=== PATIENT | female | born 1945 | race Caucasian/White ===

== ENCOUNTER → 2020-10-09 11:57 | Outpatient (CLI) | payer MEDICARE, OTHER, SELFPAY ==
--- NOTE | ~2020-10-09 | XR_ITS ---
XR chest 2V DATE: 10/09/2020 12:17 INDICATION: Shortness of breath TECHNIQUE: PA and lateral views COMPARISON: 06/02/2019 portable AP chest FINDINGS: Heart size is within upper normal range. There is aortic arch calcification. No pulmonary i nfiltrate or consolidation, pleural effusion or pulmonary vascular congestion or pneumothorax. There is left superior mediastinal soft tissue prominence. 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 Diffuse osteopenia. IMPRESSION: Left superior mediastinal soft tissue prominence, likely secondary to rotation and an ano malous left superior mediastinal vein evident on 04/29/2013 CT examination No active pulmonary disease Reviewed, dictated and finalized at location A. IMPRESSION: Left superior mediastinal soft tissue prominence, likely secondary to rotation and an anomalous left superior mediastinal vein evident on 3 CT examination No active pulmonary disease
== END ==
PROVIDERS: PCP Family Medicine Adolescent Medicine; Visit Provider Physician Assistant
DX: R06.02 Shortness of breath (principal); R91.8 Other nonspecific abnormal finding of lung field
CPT/HCPCS: 71046

== ENCOUNTER → 2020-11-22 15:04 | Outpatient (CLI) | payer MEDICARE, OTHER, SELFPAY ==
--- NOTE | ~2020-11-22 | CT_ITS ---
EXAMINATION: CT abdomen pelvis wo con EXAM DATE: 11/22/2020 15:18 INDICATION: Sacral drainage and rectal CA with hx of APR. TECHNIQUE: Spiral CT of the abdomen and pelvis was performed without contrast. Axial, coronal and s agittal images of the abdomen and pelvis were reviewed. The dose-length product (DLP) for this exami [facility] was 436.36 mGy-cm. The exposure was tailored according to patient size (auto mA exposure cont rol), and iterative reconstruction (ASIR) was used as additional dose reduction technique. Comparison is made to prior examination from 04/29/2013. FINDINGS: Possible 1.2 cm cystic pancreatic head lesion. The differential diagnosis includes pseudocy st, intraductal papillary mucinous neoplasm (IPMN), mucinous cystic neoplasm (MCN), and the less comm on serous cystadenoma and neuroendocrine tumor. Correlate for history of pancreatitis. The liver, spleen, adrenal glands are otherwise unremarkable. There are gallstones within an otherwi se unremarkable gallbladder. No evidence of obstructive biliary disease. There is no nephrolithiasi s or hydronephrosis. Right hip replacement obscuring the pelvis. Fibroid uterus. The bladder is unre markable. There is no retroperitoneal or pelvic lymphadenopathy. There is mild scattered arteriosc lerotic disease. In expected location of rectum there is region measuring about 1 x 3 cm which could be small pocket o f fluid, abscess or soft tissue, was not present on prior study in 2012. There is left lower quadrant colostomy which was present at that time as well as the presacral surgical clips. Scattered colonic diverticulosis without diverticulitis. The appendix is normal. There is small sliding gastroesophage al hiatal hernia. There is expected amount of colonic stool. No free intraperitoneal gas. The he art is normal in size. There are no pericardial or pleural effusions. The lung bases are unremarkab le. There are no osteoblastic or osteolytic lesions identified. The sacrum is unremarkable, no sac ral erosion. IMPRESSION: 1. Development of nonspecific small fluid collection or soft tissue in the rectal surgical bed. 2. Possible development of small pancreatic cystic lesion, differential diagnosis above. 3. Small hiatal hernia. Cholelithiasis. 4. Mild colonic diverticulosis. 5. Surgical changes. Reviewed, dictated and finalized at location A. IMPRESSION: 1. Development of nonspecific small fluid collection or soft tissue in the rec larisa surgical bed. 2. Possible development of small pancreatic cystic lesion, differential diagno sis above. 3. Small hiatal hernia. Cholelithiasis. 4. Mild colonic diverticulosis. 5. Surgical changes.
== END ==
PROVIDERS: Visit Provider Surgery
DX: C20 Malignant neoplasm of rectum (principal); M79.9 Soft tissue disorder, unspecified; K57.30 Diverticulosis of large intestine without perforation or abscess without bleeding; K44.9 Diaphragmatic hernia without obstruction or gangrene; K80.20 Calculus of gallbladder without cholecystitis without obstruction
CPT/HCPCS: 74176

== ENCOUNTER 2021-01-17 13:00 | Outpatient (RCR) | payer MEDICARE, OTHER, SELFPAY ==
[2020-12-09 12:39] VITALS: BMI 28.0
[2020-12-09 12:51] VITALS: BMI 28.0
== END 2021-02-28 11:48 | disposition home or self-care (01) ==
LOC: ANHDMC 13:00
PROVIDERS: PCP Family Medicine Adolescent Medicine; Visit Provider Family Medicine Adolescent Medicine
DX: E11.65 Type 2 diabetes mellitus with hyperglycemia (principal); Z71.3 Dietary counseling and surveillance; Z71.89 Other specified counseling
CPT/HCPCS: 97802; G0108

== ENCOUNTER 2021-02-02 18:14 | Inpatient (IN) | payer MEDICARE, OTHER, SELFPAY ==
--- NOTE | ~2021-02-02 | XR_ITS ---
EXAMINATION: XR chest 1V portable 02/02/2021 23:42 INDICATION: Fever PROCEDURE: AP portable chest COMPARISON: Comparison to multiple prior studies sequentially, with oldest reviewed study dated 11/16. FINDINGS: The lungs are clear. The cardiomediastinal silhouette is within normal limits. There are no pleural effusions. There is no pneumothorax suspected. IMPRESSION: 1: NO ACUTE CARDIOPULMONARY DISEASE. Reviewed, dictated and finalized at location A.
--- NOTE | ~2021-02-02 | CT_ITS ---
EXAMINATION: CT abdomen pelvis wo con DATE: 02/03/2021 00:25 INDICATION: Abscess. TECHNIQUE: Computed tomography (CT) of the abdomen and pelvis was performed without intravenous contr ast. Automated exposure control and iterative reconstruction technique were employed. The dose-length product was 273.96 mGy-cm. COMPARISON: CT abdomen and pelvis 11/22/2020 FINDINGS: The visualized portions of the lung bases demonstrate mild atelectasis. No pleural effusion . The heart size is normal. No pericardial effusion. There is a small sliding hiatal hernia. The live r is normal. The gallbladder is contracted and contains gallstones. The spleen, pancreas, adrenal gla nds, and kidneys are normal. There are calcified fibroids in the uterus. There is diverticulosis of t he colon without evidence of diverticulitis. There is an end colostomy in left abdomen. The appendix is normal. There are surgical clips and chronic fat stranding in the presacral region, consistent wit h scarring. There is a sacral decubitus ulcer. No evidence of osteomyelitis. There are no pathologica lly enlarged lymph nodes. There is no free intraperitoneal fluid. There is a total right hip arthropl asty. IMPRESSION: 1. Small sliding hiatal hernia. 2. Cholelithiasis. No evidence of acute cholecystitis. 3. Sacral decubitus ulcer. No evidence of osteomyelitis. Reviewed, dictated and finalized at location A.
--- NOTE | ~2021-02-02 | XR_ITS ---
EXAMINATION: XR abdomen/kub 1V EXAM DATE: 02/05/2021 22:29 INDICATION: nausea and vomiting . Left lower quadrant colostomy. TECHNIQUE: Frontal projection of the upper abdomen, frontal projection lower abdomen/pelvis for inter pretation. Correlation is made to CT abdomen pelvis 02/02/2021. FINDINGS: There are several loops of moderately distended air-filled small bowel. Relative paucity of colonic stool and gas. Small bowel ileus versus low-grade obstruction. Fibroid. Right hip replacemen t. There is no organomegaly. IMPRESSION: Development of several moderately distended small bowel loops, ileus or possibly low-grad e obstruction. Reviewed, dictated and finalized at location A. IMPRESSION: Development of several moderately distended small bowel loops, ileu s or possibly low-grade obstruction.
--- NOTE | ~2021-02-02 | XR_ITS ---
XR chest PICC line DATE: 02/10/2021 17:39 INDICATION: PICC line placement TECHNIQUE: Portable AP chest on 02/10/2021 at 1728 hours COMPARISON: 05/16/2013 CT chest abdomen pelvis FINDINGS: Based upon correlation with 2013 CT chest images, there is a left upper extremity PICC cath eter which progresses from the left subclavian vein into a vein along the lateral aspect of the left superior mediastinum, which then proceeds along the paraspinal area and eventually drains into the az ygos vein before reaching the right atrium. No direct access from either upper extremity is identified for PICC line placement. The superior vena cava is very limited, receiving drainage only from the azygos vein and some small collateral veins. The right subclavian vein is small, in height with the right internal jugular vein and forearm the br achiocephalic vein which then drains into the right internal mammary vein and left brachiocephalic ve in. Heart size appears normal. No hilar or mediastinal enlargement is evident. No pulmonary infiltrate or consolidation, pleural effusion or pulmonary vascular congestion or pneumothorax. There is moderate elevation of the right leaf of the diaphragm. Diffuse osteopenia. IMPRESSION: Left upper extremity PIC catheter in left lateral superior mediastinal vein which eventua lly processes to the left paraspinal area and drains into the azygos vein. Reviewed, dictated and finalized at Location A. Reviewed, dictated and finalized at location A. IMPRESSION: Left upper extremity PIC catheter in left lateral superior mediasti nal vein which eventually processes to the left paraspinal area and drains into the azygos vein.
[2021-02-02 18:47] VITALS: BP 154/63; PULSE 110; RESP 20; TEMP 38.1; O2SAT 97
[2021-02-02 19:02] LABS: Basophils Percent Auto 0.2 % (0.2-1.2); Hemoglobin 11.3 g/dL (12.0-15.0); Immature Granulocyte Absolute 0.16 K/mm3 (0.00-0.031); Immature Granulocyte Percent A 0.8 % (0-0.5); Lymphocytes Absolute Auto 0.38 K/mm3 (0.9-3.2); Mean Corpuscular HGB Conc 32.3 g/dl (32-36); Mean Corpuscular Hemoglobin 30.8 pg (26-34); Mean Corpuscular Volume 95.4 fl (80-100); Mean Platelet Volume 10.2 fl (7.4-10.4); Monocytes Absolute Auto 1.2 K/mm3 (0.1-0.6); Monocytes Percent Auto 6.2 % (2.6-8.5); Neutrophils Absolute Auto 17.2 K/mm3 (1.3-6.7); Neutrophils Percent Auto 90.8 % (45.5-73.1); Platelet Count Result 394 k/mm3 (150-375); Red Blood Count 3.67 M/mm3 (4.2-5.4); Red Cell Distribution Width 13.4 % (11.5-14.5)
[2021-02-02 19:12] LABS: Lactic Acid Reflex 0.8 mmol/L (0.7-2.1)
[2021-02-02 19:22] LABS: Alanine Aminotransferase 36 U/L (4-35); Albumin Level 4.3 g/dL (3.5-5.1); Alkaline Phosphatase 83 U/L (38-126); Anion Gap 12 mmol/L (8-16); Aspartate Amino Transferase 40 U/L (14-36); Bilirubin,Total 0.9 mg/dL (0.2-1.3); Blood Urea Nitrogen 44 mg/dL (7-17); Calcium 10.3 mg/dL (8.4-10.2); Carbon Dioxide 19 mmol/L (22-30); Chloride 97 mmol/L (98-107); Estimated CRCL calculation 21 ml/min; Estimated Glomerular Filt Rate 32; Glucose 167 mg/dL (65-110); Lipase 104 U/L (23-300); Potassium 4.4 mmol/L (3.4-5.0); Sodium 128 mmol/L (137-145)
[2021-02-02 19:37] LABS: CRP 34.7 mg/dL (<1.0)
[2021-02-02] MEDS: SODIUM CHLORIDE 0.9% IV 1,000 ML 150 ML IV CONT (23:43)
[2021-02-03] VITALS (21 sets, daily range): BP systolic 77–161; BP diastolic 38–63; PULSE 68–94; RESP 16–25; TEMP 36.3–38.2; O2SAT 93–100; BMI 25.7
--- NOTE | 2021-02-03 01:26 | ED.FEVER ---
HPI - Fever General Chief Complaint: Fever Stated Complaint: Fever/Weakness Time Seen by Provider: 02/02/21 22:51 Source: patient Mode of arrival: EMS Limitations: no limitations History of Present Illness HPI Narrative: 75-year-old with a history of hypertension, diabetes, colorectal cancer s/p colostomy here with a complaint of high fever of 103 since this morning. Patient states she had a boil in her lower back she gets this periodically. Patient states that she has seen different surgeons that I do not know where the origin of her infection noticed. However she did note history of have some drainage coming out from the lower back since this afternoon. She states that she was in excruciating pain. No history of chest pain or shortness of breath or cough. MD elicited complaint: fever Pertinent past history: diabetes Onset (ago): day(s) (1) Exacerbating factors: nothing Relieving factors: nothing Associated symptoms: denies other symptoms Related Data Home Medications Medication Instructions Recorded Confirmed ezetimibe 10 mg tablet 10 mg PO DAILY 11/10/20 12/29/20 metformin 500 mg tablet 500 mg PO DAILY 11/10/20 12/29/20 allopurinol 02/03/21 amlodipine 02/03/21 fenofibrate mg 02/03/21 losartan 02/03/21 triamterene-hydrochlorothiazid tablet 02/03/21 Allergies Allergy/AdvReac Type Severity Reaction Status Date / Time Sulfa (Sulfonamide Allergy Severe SWELLING, Verified 02/03/21 01:32 Antibiotics) THROAT, FACE Review of Systems Review of Systems: All systems reviewed & are unremarkable except as noted in HPI and below Constitutional: Constitutional: Reports no additional constitutional complaints Eyes: Eyes: Reports no additional eye complaints ENT: Reports system reviewed and no additional complaints, except as documented Cardiovascular: Cardiovascular: Reports no additional cardiovascular complaints Respiratory: Respiratory: Reports no additional respiratory complaints Gastrointestinal: Gastrointestinal: Reports no additional gastrointestinal complaints Integumentary/Breasts: Skin/Breast: Reports as per HPI Neurologic: Reports system reviewed and no additional complaints, except as documented PMFSH Past Medical History Medical History Cataracts, bilateral Colorectal cancer Diabetes Gout Hemorrhoids High cholesterol HTN (hypertension) Rectal cancer UTI (urinary tract infection) Surgical History Surgical History History of right hip replacement May 2019 Hx of cataract surgery lt eye 2008 Hx of section 1974 Hx of colostomy perineal resection with [id number] Hx of dilation and curettage 1979 Family History Family History Father , age 70 Heart disease Social History Social History Smoking status: Never smoker Alcohol intake: never Spiritual care concerns: No Exam Narrative: GENERAL: Well-appearing, well-nourished, and in no acute distress. HEAD: Normocephalic, atraumatic. EYES: PERRLA and EOMI. NECK: Supple. CHEST: Clear to auscultation. No respiratory distress. HEART: Regular rate and rhythm. No murmur heard. Normal peripheral pulses. ABDOMEN: Soft, nontender, nondistended, has colostomy Examination of the lower back there is abscess between the gluteal cleft with large amount purulent drainage. EXTREMITIES: Normal range of motion. No edema. SKIN: Warm, dry, no rash. NEURO: No focal deficits. Alert and oriented x3. PSYCH: Normal mood and affect. Course Course Emergency Course: Inform patient about her lab work, CT findings. Discussed with Dr. Thurston to recommend admit to contact Dr. Shelton. I discussed with Dr. Shelton advised to admit the patient to the hospitalist as she has several medical problems he will be co
--- NOTE | 2021-02-03 01:31 | PC.NURSE ---
Patient tells me that she is unable to provide urine at this time.
--- NOTE | 2021-02-03 03:21 | PC.NURSE ---
Cefepime not started in the ED because no drug in pyxis. Floor nurse notified during report,
--- NOTE | 2021-02-03 03:57 | PC.NURSE ---
This patient, Yulisa De Paz, was admitted to 3 Med Surg Room 305-01. Patient/family oriented to hospital policies and general routines including ID bracelet, bed and alarms, visiting hours, pain management, procedures, bathroom and other care routines, personal items, smoking policy, room service/diet, and visiting hours. Information on how to activate the Rapid Response Team has been discussed. Patient/Family are encouraged to report perceived risks to care and to ask questions if they do not understand what they are told or what they should do.
[2021-02-03] MEDS: SODIUM CHLORIDE 0.9% IV 1,000 ML 75 ML IV CONT ×2 (04:32→21:12)
--- NOTE | 2021-02-03 05:52 | PM.IMHP ---
H&P: HPI History of Present Illness Date/Time: 02/03/21 05:52 Chief Complaint: fever Narrative: this is a 75-year-old female with a history of hypertension, diabetes, colorectal cancer s/p colostomy since 2007, status post right hip replacement in 2019 presents to the ER with fever since past few days. She has reported of fever of 103 at home. She has not taken anything for this. She also reports she started having a boil in her lower back which is in fact a chronic problem. Since the surgery for right hip replacement in 2019 she has been recurrent be having a boil in her coccygeal area which opens and heels Frequently with drain is of blood/pus. she was seen general surgeon here however did not have any active drainage at the time and was sent to a colorectal surgeon who she saw in the end of December of last month. Since there was no drainage and opening no further test was done. She did not have any drainage under she came to the ER and while in the ER it started draining. Since is drained she reports the pain is better. She was noted to have leukocytosis of 19,000 along with fever and is admitted for further evaluation and management. Review of Systems Review of Systems: - CONSTITUTIONAL: Denies weight loss, Reports fever and chills. - HEENT: Denies changes in vision and hearing - RESPIRATORY: Denies SOB and cough. - CV: Denies palpitations and CP. - GI: Denies abdominal pain, nausea, vomiting and diarrhea. - : Denies dysuria and urinary frequency. - MSK: Denies myalgia and joint pain. reports low back pain - SKIN: Denies rash and pruritus. - NEUROLOGICAL: Denies headache and syncope. - PSYCHIATRIC: Denies recent changes in mood. Denies anxiety and depression. All systems reviewed & are unremarkable except as noted in HPI and below Constitutional: Constitutional: Reports fatigue and Reports weakness Neurologic: Reports weakness Endocrine: Endocrine: Reports fatigue PMFSH Past Medical History Medical History (Updated 02/03/21 @ 06:00 by Boby Rosa MD) Cataracts, bilateral Colorectal cancer Diabetes Gout Hemorrhoids High cholesterol HTN (hypertension) Rectal cancer UTI (urinary tract infection) Surgical History Surgical History History of right hip replacement May 2019 Hx of cataract surgery lt eye 2008 Hx of section 1975 Hx of colostomy perineal resection with [id number] Hx of dilation and curettage 1979 Family History Family History Father , age 70 Heart disease Social History Social History Smoking status: Never smoker Alcohol intake: never Substance use: never Spiritual care concerns: No Meds Home Medications and Allergies Home Medications Medication Instructions Recorded Confirmed Type ezetimibe 10 mg tablet 10 mg PO DAILY 11/10/20 02/03/21 History metformin 500 mg tablet 500 mg PO DAILY 11/10/20 02/03/21 History allopurinol 300 mg PO DAILY 02/03/21 02/03/21 History fenofibrate 160 mg PO DAILY 02/03/21 02/03/21 History losartan 100 mg PO DAILY 02/03/21 02/03/21 History triamterene-hydrochlorothiazid 1 tablet PO DAILY 02/03/21 02/03/21 History Allergies Allergy/AdvReac Type Severity Reaction Status Date / Time Sulfa (Sulfonamide Allergy Severe SWELLING, Verified 02/03/21 01:32 Antibiotics) THROAT, FACE Vital Signs Vital Signs - 24 hr 02/02/21 18:47 02/03/21 01:20 02/03/21 02:00 Temperature 100.6 F H 98.7 F Pulse Rate 110 H 90 89 Respiratory Rate 20 16 18 Blood Pressure 154/63 H 161/53 H 147/54 H Pulse Oximetry 97 96 97 02/03/21 03:01 02/03/21 03:35 Temperature 99.1 F 99.6 F Pulse Rate 79 88 Respiratory Rate 19 25 H Blood Pressure 133/53 L 150/48 H Pulse Oximetry 98 97 Exam Narrative: GENERAL: Well-appearing, well-nourished,
[2021-02-03 07:25] LABS: Estimated CRCL calculation 22 ml/min; Estimated Glomerular Filt Rate 34
--- NOTE | 2021-02-03 08:17 | PM.CNGS ---
Assessment and Plan Assessment and plan (1) Abscess of sacrum: Code(s): M46.28 - Osteomyelitis of vertebra, sacral and sacrococcygeal region Status: Acute Assessment and Plan: IV abx, will take to OR for further exploration and drainage given chronic nature (2) Diabetes: Qualifiers: Diabetes mellitus type: type 2 Diabetes mellitus terminal carman insulin use: without terminal carman use Diabetes mellitus complication status: without complication Qualified Code(s): E11.9 - Type 2 diabetes mellitus without complications Code(s): E11.9 - Type 2 diabetes mellitus without complications Status: Chronic Assessment and Plan: tight bs control given acute infection (3) Sepsis: Code(s): A41.9 - Sepsis, unspecified organism Status: Acute Assessment and Plan: secondary to chronic abscess, cont IV abx, wound care s/p exploration in OR History of Present Illness Consult details Consult date: 02/03/21 Reason for consult: wound care Requesting physician: Boby Rosa MD Narrative: Pt is a 75 y/o F c a chronic abscess/wound in her sacral area. Pt reports area intermittently gets infected and drains. Pt had APR in 2007 for rectal cancer. Pt reports wound developed in 2019 after hip surgery. Pt reports she began to have fevers approximately 2 days ago, yest she had temp of 103. Pt reports area has since opened up and drained a large amount of pus and blood. Pt reports area feels significantly improved s/p drainage. Review of Systems Constitutional: Constitutional: Denies anorexia, Reports chills, Reports fatigue, Reports fever(s), Reports lethargy, Reports malaise, Reports poor appetite, Reports weakness, Denies weight gain and Denies weight loss Eyes: Eyes: Reports no additional eye complaints ENT: Reports system reviewed and no additional complaints, except as documented Cardiovascular: Cardiovascular: Reports no additional cardiovascular complaints Respiratory: Respiratory: Reports no additional respiratory complaints Gastrointestinal: Gastrointestinal: Reports no additional gastrointestinal complaints Genitourinary: Genitourinary: Reports no additional female genitourinary complaints Musculoskeletal: Musculoskeletal: Reports no additional musculoskeletal complaints Integumentary/Breasts: Skin/Breast: Reports as per HPI Neurologic: Reports system reviewed and no additional complaints, except as documented Psychiatric: Psychiatric: Reports no additional psychiatric complaints Endocrine: Endocrine: Reports no additional endocrine complaints Hematologic/Lymphatic: Hematologic/Lymphatic: Reports no additional hematologic/lymphatic complaints Allergic/Immunologic: Allergic/Immunologic: Reports no additional allergic/immunologic complaints PMFSH Past Medical History Medical History Cataracts, bilateral Colorectal cancer Diabetes Gout Hemorrhoids High cholesterol HTN (hypertension) Rectal cancer UTI (urinary tract infection) Surgical History Surgical History History of right hip replacement May 2019 Hx of cataract surgery lt eye 2007 Hx of section 1974 Hx of colostomy perineal resection with [id number] Hx of dilation and curettage 1979 Family History Family History Father , age 70 Heart disease Social History Social History Smoking status: Never smoker Alcohol intake: never Substance use: never Spiritual care concerns: No Meds Home Medications and Allergies Home Medications Medication Instructions Recorded Confirmed Type ezetimibe 10 mg tablet 10 mg PO DAILY 11/10/20 02/03/21 History metformin 500 mg tablet 500 mg PO DAILY 11/10/20 02/03/21 History allopurinol 300 mg PO DAILY 02/03/21
[2021-02-03 08:18] LABS: Glucose Point of Care 139 mg/dl (65-105)
--- NOTE | 2021-02-03 08:25 | WPDHPUPDATE1 ---
History and Physical Update Update Date/Time: 02/03/21 08:25 History and Physical has been reviewed, including an updated exam of the patient. There are NO changes in the patient's condition. Risks, benefits, and alternatives have been discussed and questions answered. Patient agrees to proceed with procedure.
--- NOTE | 2021-02-03 08:34 | WPDANESEPPF ---
Anes - Initial Pre Proc Eval Procedure: Operation Date: 02/03/21 08:30 Proposed Procedures p Incision and Drainage Complex Sacral Abscess - Rita Shelton MD Date/Time: 02/03/21 08:34 Surgeon: Boby Rosa MD Pre Op Diagnosis: gluteal cleft abscess Patient Data Age: 75 Gender: F Height: 1.55 m Weight: 61.9 kg Last Vital Signs Temp 36.8 C 02/03/21 06:00 Pulse 91 02/03/21 06:00 Resp 18 02/03/21 06:00 BP 155/49 H 02/03/21 06:00 Pulse Ox 99 02/03/21 06:00 Allergies Allergy/AdvReac Type Severity Reaction Status Date / Time Sulfa (Sulfonamide Allergy Severe SWELLING, Verified 02/03/21 01:32 Antibiotics) THROAT, FACE Home Medications Medication Instructions Recorded Confirmed Type ezetimibe 10 mg tablet 10 mg PO DAILY 11/10/20 02/03/21 History metformin 500 mg tablet 500 mg PO DAILY 11/10/20 02/03/21 History allopurinol 300 mg PO DAILY 02/03/21 02/03/21 History fenofibrate 160 mg PO DAILY 02/03/21 02/03/21 History losartan 100 mg PO DAILY 02/03/21 02/03/21 History triamterene-hydrochlorothiazid 1 tablet PO DAILY 02/03/21 02/03/21 History Laboratory Tests 02/02/21 02/02/21 02/02/21 18:55 18:55 18:55 WBC 19.0 K/mm3 H K/mm3 (4.5-10.0) RBC 3.67 M/mm3 L M/mm3 (4.2-5.4) Hgb 11.3 g/dL L g/dL (12.0-15.0) Hct 35.0 % L % (37.0-47.0) MCV 95.4 fl fl (80-100) MCH 30.8 pg pg (26-34) MCHC 32.3 g/dl g/dl (32-36) RDW 13.4 % % (11.5-14.5) Plt Count 394 k/mm3 H k/mm3 (150-375) MPV 10.2 fl fl (7.4-10.4) Immature Gran % (Auto) 0.8 % H % (0-0.5) Neut % (Auto) 90.8 % H % (45.5-73.1) Lymph % (Auto) 2.0 % L % (18.3-44.2) [place] % (Auto) 6.2 % % (2.6-8.5) Eos % (Auto) 0.0 % % (0-4.4) Baso % (Auto) 0.2 % % (0.2-1.2) Lymph # (Auto) 0.38 K/mm3 L K/mm3 (0.9-3.2) [place] # (Auto) 1.2 K/mm3 H K/mm3 (0.1-0.6) Eos # (Auto) 0.0 K/mm3 K/mm3 (0-0.3) Baso # (Auto) 0.0 K/mm3 K/mm3 (0.0-0.1) Abs Immat Gran (auto) 0.16 K/mm3 H K/mm3 (0.00-0.031) Absolute Neuts (auto) 17.2 K/mm3 H K/mm3 (1.3-6.7) Absolute Nucleated RBC 0.0 K/mm3 K/mm3 (0.0-0.012) Nucleated RBC % 0.0 % % (0.0-0.2) Sodium 128 mmol/L L mmol/L (137-145) Potassium 4.4 mmol/L mmol/L (3.4-5.0) Chloride 97 mmol/L L mmol/L (98-107) Carbon Dioxide 19 mmol/L L mmol/L (22-30) Anion Gap 12 mmol/L mmol/L (8-16) BUN 44 mg/dL H D mg/dL (7-17) Creatinine 1.60 mg/dL H mg/dL (0.7-1.0) Estim Creat Clear Calc 21 ml/min ml/min Estimated GFR 32 L (59 - ) Glucose 167 mg/dL H mg/dL (65-110) POC Capillary Glucose Lactic Acid 0.8 mmol/L mmol/L (0.7-2.1) Calcium 10.3 mg/dL H mg/dL (8.4-10.2) Total Bilirubin 0.9 mg/dL mg/dL (0.2-1.3) AST 40 U/L H U/L (14-36) ALT 36 U/L H U/L (4-35) Alkaline Phosphatase 83 U/L U/L (38-126) C-Reactive Protein 34.7 mg/dL H mg/dL (<1.0) Total Protein 8.0 g/dL g/dL (6.3-8.2) Albumin 4.3 g/dL g/dL (3.5-5.1) Lipase 104 U/L U/L (23-300) 02/03/21 02/03/21 06:18 08:04 WBC RBC Hgb Hct MCV MCH MCHC RDW Plt Count MPV Immature Gran % (Auto) Neut % (Auto) Lymph % (Auto) [place] % (Auto) Eos % (Auto) Baso % (Auto) Lymph # (Auto) [place] # (Auto) Eos # (Auto) Baso # (Auto) Abs Immat Gran (auto) Absolute Neuts (auto) Absolute Nucleated RBC Nucleated RBC % Sodium Potassium Chloride
[2021-02-03] MEDS: LACTATED RINGERS 1,000 ML 30 ML IV CONT ×2 (08:41→10:06)
--- NOTE | 2021-02-03 09:58 | W.PM.PROC2 ---
Procedure Note - Detailed Date of Procedure 02/03/21 Pre-op Diagnosis chronic perineal abscess Post-op Diagnosis other (chronic perineal abscess, vaginal fistula) Procedure Performed complex incision and drainage of perineal abscess measuring 5x4x10 cm with noted vaginal fistula Surgeon Rita Shelton MD Anesthesia general Indications 75 y/o F c h/o APR, radiation for rectal cancer now c chronic perineal abscess, occasional hematuria Findings 5x4x10 cm cavity c vaginal fistula Description of Procedure The patient was taken to the operating room and placed in the lateral position. After adequate induction of general anesthesia, patient was prepped and draped in the normal sterile fashion. A time-out was then done to verify the patient's identity, as well as the procedure being performed. I began by enlarging the opening in the perineum. This opening ended up being about 5 cm. The cavity extended back post and inferiorly approximately 10 cm. This ended with a communication with the posterior vagina. There was some noted purulent fluid as well as blood clot within the cavity. Once the area was completely opened and drained, I washed out this cavity with normal saline. The entire tract measured approximately 5 x 4 x 10 cm. I then packed the entire tract with Betadine soaked Kerlix to keep the area open and draining. Sterile dressing was then placed. The patient tolerated the procedure well was extubated in the operating room postoperative. She will be sent to the recovery room in stable condition. Implants none Estimated Blood Loss 10 Drains No Packing Yes Pathology none sent Complications No immediate complications Condition stable Disposition PACU
[2021-02-03 10:02] LABS: Glucose Point of Care 131 mg/dl (65-105)
[2021-02-03] MEDS: allopurinoL 300 MG TABLET PO (10:59)
[2021-02-03] MEDS: ENOXAPARIN 30 MG/0.3 ML SYRINGE SUB-Q (10:59)
[2021-02-03] MEDS: FENOFIBRATE 160 MG TABLET PO (10:59)
[2021-02-03] MEDS: EZETIMIBE 10 MG TABLET PO (11:00)
[2021-02-03] MEDS: ACETAMINOPHEN 325 MG TABLET 650 MG PO (16:58)
[2021-02-03 17:08] LABS: Glucose Point of Care 103 mg/dl (65-105)
[2021-02-03 19:15] LABS: Add Urine Microscopic? YES; Appearance Urine Clear (Clear); Bilirubin Urine Negative (Negative); Blood Urine 3+ (Negative); Color Urine Yellow (Yellow); Glucose Urine UA Negative (Negative); Ketones Urine Negative (Negative); Leukocyte Esterase Ur 1+ LEU/UL (Negative); Mucus Urine Rare /lpf; Nitrate Urine Negative (Negative); Protein Urine Negative (Negative); RBC Urine 51-75 /hpf (0-2); Specific Grav Ur 1.012 (1.001-1.035); Squamous Epithelial Cell Urine Rare /hpf (Few); Urobilinogen Urine Negative mg/dL (<2.0); WBC Urine 21-30 /hpf
[2021-02-03] MEDS: MORPHINE SULFATE (*CRX) 4 MG/ML INJ IV PUSH (21:20)
[2021-02-03 22:07] LABS: Glucose Point of Care 130 mg/dl (65-105)
[2021-02-04 03:35] VITALS: BP 136/64; PULSE 76; RESP 18; TEMP 37.6; O2SAT 98
[2021-02-04 06:32] LABS: Basophils Percent Auto 0.2 % (0.2-1.2); Eosinophils Absolute Auto 0.1 K/mm3 (0-0.3); Eosinophils Percent Auto 1.2 % (0-4.4); Hematocrit 27.8 % (37.0-47.0); Hemoglobin 8.9 g/dL (12.0-15.0); Immature Granulocyte Absolute 0.08 K/mm3 (0.00-0.031); Immature Granulocyte Percent A 0.8 % (0-0.5); Lymphocytes Absolute Auto 0.48 K/mm3 (0.9-3.2); Lymphocytes Percent Auto 4.5 % (18.3-44.2); Mean Corpuscular Hemoglobin 31.2 pg (26-34); Mean Corpuscular Volume 97.5 fl (80-100); Mean Platelet Volume 10.7 fl (7.4-10.4); Monocytes Absolute Auto 0.6 K/mm3 (0.1-0.6); Monocytes Percent Auto 5.5 % (2.6-8.5); Neutrophils Absolute Auto 9.3 K/mm3 (1.3-6.7); Neutrophils Percent Auto 87.8 % (45.5-73.1); Platelet Count Result 319 k/mm3 (150-375); Red Blood Count 2.85 M/mm3 (4.2-5.4); Red Cell Distribution Width 13.6 % (11.5-14.5); White Blood Count 10.6 K/mm3 (4.5-10.0)
[2021-02-04 06:53] LABS: Anion Gap 6 mmol/L (8-16); Blood Urea Nitrogen 29 mg/dL (7-17); Calcium 8.9 mg/dL (8.4-10.2); Carbon Dioxide 22 mmol/L (22-30); Chloride 105 mmol/L (98-107); Estimated CRCL calculation 26 ml/min; Estimated Glomerular Filt Rate 40; Glucose 114 mg/dL (65-110); Potassium 3.9 mmol/L (3.4-5.0); Sodium 133 mmol/L (137-145)
[2021-02-04 08:00] VITALS: BP 146/60; PULSE 88; RESP 14; TEMP 36.4; O2SAT 96
[2021-02-04 08:04] LABS: Glucose Point of Care 94 mg/dl (65-105)
--- NOTE | 2021-02-04 09:08 | WPDCDIQUERY2 ---
CDI Query Clarification Request -Dr Shelton, in consultation note, diagnosis of abscess of sacrum and osteomyelitis of vertebra, sacral and sacrococcygeal region is documented. -Abd and pelvis CT impression: No evidence of osteomyelitis Please clarify if osteomyelitis has been ruled in or ruled out. <Marylou Wong RN - Last Filed: 02/04/21 09:11> Clarified Diagnosis (1) Abscess of sacrum: Code(s): M46.28 - Osteomyelitis of vertebra, sacral and sacrococcygeal region <Marylou Wong RN - Last Filed: 02/04/21 09:11> Status: Acute <Marylou Wong RN - Last Filed: 02/04/21 09:11> Assessment and Plan: no osteomyelitis <Rita Shelton MD - Last Filed: 02/07/21 12:41>
--- NOTE | 2021-02-04 10:11 | PM.PNGS ---
Progress Note: A&P Assessment and Plan (1) Abscess of sacrum: Code(s): M46.28 - Osteomyelitis of vertebra, sacral and sacrococcygeal region Status: Acute Assessment and Plan: cont abx, cont local wound care (2) 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 - Other female genital tract fistulae Status: Acute Assessment and Plan: will need transfer to tertiary care facility for definitive treatment Subjective Subjective Date/Time Seen: 02/04/21 10:11 feels ok, long d/w pt re: need to transfer to tertiary care facility for vaginal reconstruction Review of Systems Review of Systems: All systems reviewed & are unremarkable except as noted in HPI and below Exam Const: General: cooperative, comfortable and no acute distress Orientation/consciousness: patient oriented x3 Resp: Effort & Inspection: normal respiratory effort Auscultation: clear to auscultation bilaterally Cardio: Rate: regular rate Rhythm: regular rhythm GI: Inspection: normal to inspection and incision GI Palp: Yes Soft to palpation and No Tenderness to palpation present (GI) Other: LLQ ostomy - +fxn Back/Spine/Pelvis: Other: perineal wound - dressing C/D/I Objective Data Vital Signs Vital Signs: Vital Signs - 24 hr 02/03/21 10:20 02/03/21 10:35 02/03/21 10:48 Temperature Pulse Rate 73 69 75 Respiratory Rate 20 20 18 Blood Pressure 112/47 L 107/50 L 108/57 L Pulse Oximetry 95 96 96 02/03/21 10:50 02/03/21 11:05 02/03/21 11:35 Temperature 36.9 C 36.3 C L 36.7 C Pulse Rate 69 70 69 Respiratory Rate 18 18 16 Blood Pressure 113/51 L 126/57 L 115/52 L Pulse Oximetry 96 93 95 02/03/21 12:35 02/03/21 16:00 02/03/21 20:00 Temperature 36.6 C 36.4 C 36.7 C Pulse Rate 73 69 73 Respiratory Rate 16 16 18 Blood Pressure 118/53 L 130/59 L 126/55 L Pulse Oximetry 93 100 98 02/03/21 23:38 02/04/21 03:35 02/04/21 08:00 Temperature 37.4 C 37.6 C H 36.4 C Pulse Rate 68 76 88 Respiratory Rate 17 18 14 Blood Pressure 126/63 136/64 146/60 H Pulse Oximetry 100 98 96 Intake/Output Intake/Output: Intake & Output 02/01/21 02/02/21 02/03/21 02/04/21 23:59 23:59 23:59 23:59 Intake Total 4080 500 Output Total 625 200 Balance 3455 300 Meds/Results Medications: Active Medications Generic Name Dose Route Start Last Admin Trade Name Freq PRN Reason Stop Dose Admin Acetaminophen 650 mg 02/03/21 01:55 02/03/21 16:58 Acetaminophen 325 Mg Tablet PO 650 mg Q4H PRN Administration Mild Pain (1-3) or Fever Hydrocodone Bitart/Acetaminophen 1 tab 02/04/21 10:07 Hydrocodone/Acetaminophen (*Crx) 5-325 Mg Tablet PO Q6H PRN Pain Rated 4-6 Hydrocodone Bitart/Acetaminophen 2 tab 02/04/21 10:07 Hydrocodone/Acetaminophen (*Crx) 5-325 Mg Tablet PO Q6H PRN Pain Rated 6 or Greater Allopurinol 300 mg 02/03/21 08:00 02/03/21 10:59 Allopurinol 300 Mg Tablet PO 300 mg DAILY@0800 JOANN Administration Dextrose 12.5 gm 02/03/21 06:05 Dextrose 50% 25 Gm/50 Ml Syringe IV PUSH PRN PRN Hypoglycemia Protocol Ezetimibe 10 mg 02/03/21 09:00 02/03/21 11:00 Ezetimibe 10 Mg Tablet PO 10 mg DAILY JOANN Administration Enoxaparin Sodium 30 mg 02/03/21 09:00 02/03/21 10:59 Enoxaparin 30 Mg/0.3 Ml Syringe SUB-Q 30 mg DAILY JOANN Administration Fenofibrate 160 mg 02/03/21 09:00 02/03/21 10:59 Fenofibrate 160 Mg Tablet PO 160 mg DAILY JOANN Administration Glucagon 1 mg 02/03/21 06:05 Glucagon For Inj 1 Mg Vial IM PRN PRN Hypoglycemia Protocol Glucose 15 gm 02/03/21 06:05 Glucose Oral Gel 15 Gm Of Glucse In 37.5 Gm Tube PO PRN PRN Hypoglycemia Protocol Sodium Chloride 1,000 mls @ 75 mls/hr 02/03/21 01:55 02/03/21 21:12 Normal Saline Iv IV CONT 75 mls/hr .[id number] JOANN Administration Cefepime HCl 2 gm in 50 mls @ 100 mls/hr 02/03/21 04:00 02/04/21 03:43 Maxipime 2 Gm/D5w 50 Ml I
[2021-02-04 11:10] LABS: Glucose Point of Care 117 mg/dl (65-105)
[2021-02-04] MEDS: HYDROcodone/acetaminophen (*CRX) 5-325 MG TABLET 1 TAB PO ×3 (11:16→23:57)
[2021-02-04] MEDS: SODIUM CHLORIDE 0.9% IV 1,000 ML 75 ML IV CONT (11:16)
[2021-02-04] MEDS: TRIAMTERENE 37.5 MG/HCTZ 25 MG (MAXZIDE) TABLET 2 TAB PO (11:18)
[2021-02-04] MEDS: FENOFIBRATE 160 MG TABLET PO (11:18)
[2021-02-04] MEDS: ENOXAPARIN 30 MG/0.3 ML SYRINGE SUB-Q (11:18)
[2021-02-04] MEDS: LOSARTAN POTASSIUM 100 MG TABLET PO (11:18)
[2021-02-04] MEDS: EZETIMIBE 10 MG TABLET PO (11:18)
[2021-02-04] MEDS: metFORMIN HCL 500 MG TABLET PO (11:18)
[2021-02-04] MEDS: allopurinoL 300 MG TABLET PO (11:19)
[2021-02-04 12:00] VITALS: BP 167/69; PULSE 84; RESP 14; TEMP 36.6; O2SAT 97
--- NOTE | 2021-02-04 13:06 | WPDUROPN2 ---
Subjective Subjective Date/Time Seen: 02/04/21 13:[address] Shelton. 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 Not something that I as a urologist know how to manage. Will need a tertiary care center Objective Data Vital Signs Vital Signs: Vital Signs - 24 hr 02/03/21 16:00 02/03/21 20:00 02/03/21 23:38 Temperature 97.6 F 98.0 F 99.3 F Pulse Rate 69 73 68 Respiratory Rate 16 18 17 Blood Pressure 130/59 L 126/55 L 126/63 Pulse Oximetry 100 98 100 02/04/21 03:35 02/04/21 08:00 02/04/21 12:00 Temperature 99.7 F H 97.6 F 97.9 F Pulse Rate 76 88 84 Respiratory Rate 18 14 14 Blood Pressure 136/64 146/60 H 167/69 H Pulse Oximetry 98 96 97 Intake/Output Intake/Output: Intake & Output 02/01/21 02/02/21 02/03/21 02/04/21 23:59 23:59 23:59 23:59 Intake Total 4080 1656 Output Total 625 200 Balance 3455 1456 Meds/Results Medications: Active Medications Generic Name Dose Route Start Last Admin Trade Name Freq PRN Reason Stop Dose Admin Acetaminophen 650 mg 02/03/21 01:55 02/03/21 16:58 Acetaminophen 325 Mg Tablet PO 650 mg Q4H PRN Administration Mild Pain (1-3) or Fever Hydrocodone Bitart/Acetaminophen 1 tab 02/04/21 10:07 02/04/21 11:16 Hydrocodone/Acetaminophen (*Crx) 5-325 Mg Tablet PO 1 tab Q6H PRN Administration Pain Rated 4-6 Hydrocodone Bitart/Acetaminophen 2 tab 02/04/21 10:07 Hydrocodone/Acetaminophen (*Crx) 5-325 Mg Tablet PO Q6H PRN Pain 7-10 Allopurinol 300 mg 02/03/21 08:00 02/04/21 11:19 Allopurinol 300 Mg Tablet PO 300 mg DAILY@0800 JOANN Administration Dextrose 12.5 gm 02/03/21 06:05 Dextrose 50% 25 Gm/50 Ml Syringe IV PUSH PRN PRN Hypoglycemia Protocol Ezetimibe 10 mg 02/03/21 09:00 02/04/21 11:18 Ezetimibe 10 Mg Tablet PO 10 mg DAILY JOANN Administration Enoxaparin Sodium 30 mg 02/03/21 09:00 02/04/21 11:18 Enoxaparin 30 Mg/0.3 Ml Syringe SUB-Q 30 mg DAILY JOANN Administration Fenofibrate 160 mg 02/03/21 09:00 02/04/21 11:18 Fenofibrate 160 Mg Tablet PO 160 mg DAILY JOANN Administration Glucagon 1 mg 02/03/21 06:05 Glucagon For Inj 1 Mg Vial IM PRN PRN Hypoglycemia Protocol Glucose 15 gm 02/03/21 06:05 Glucose Oral Gel 15 Gm Of Glucse In 37.5 Gm Tube PO PRN PRN Hypoglycemia Protocol Sodium Chloride 1,000 mls @ 75 mls/hr 02/03/21 01:55 02/04/21 11:16 Normal Saline Iv IV CONT 75 mls/hr .[id number] JOANN Administration Cefepime HCl 2 gm in 50 mls @ 100 mls/hr 02/03/21 04:00 02/04/21 03:43 Maxipime 2 Gm/D5w 50 Ml IVPB Infused Q24H JOANN Infusion Vancomycin HCl 1,000 mg in 250 mls @ 250 mls/hr 02/04/21 14:00 Vancomycin 1,000 Mg/D5w 250 Ml IVPB Q36H JOANN Dextrose 1,000 mls @ 100 mls/hr 02/03/21 06:05 Dextrose 5% 1,000 Ml IVPB PRN PRN Hypoglycemia Protocol Insulin Aspart 3 - 6 units 02/03/21 08:00 02/04/21 11:19 Insulin Aspart (*Bkc) 100 Units/Ml SUB-Q Not Given TIDWM JOANN Protocol Insulin Aspart 2 - 5 units 02/03/21 08:00 02/04/21 11:18 Insulin Aspart (*Bkc) 100 Units/Ml SUB-Q Not Given TIDWM JOANN Protocol Losartan Potassium 100 mg 02/04/21 09:00 02/04/21 11:18 Losartan Potassium 100 Mg Tablet PO 100 mg DAILY JOANN Administration Metformin HCl 500 mg 02/04/21 09:00 02/04/21 11:18 Metformin Hcl 500 Mg Tablet PO 500 mg DAILY JOANN Administration Morphine Sulfate 4 mg 02/03/21 01:55 02/03/21 21:20 Morphine Sulfate (*Crx) 4 Mg/Ml Inj IV PUSH 4 mg Q2H PRN Administration Pain Rated 7-10 Ondansetron HCl 4 mg 02/03/21 01:55 Ondansetron Inj 4 Mg/2 Ml Vial IV PUSH Q4H PRN Nausea Triamterene/Hydrochlorothiazide 2 tab 02/04/21 09:00 02/04/21 11:18 Triamterene 37.5 Mg/Hctz 25 Mg (Maxzide) Tablet PO 2 tab DAILY JOANN Administration Radiology Results: ITS Impressions Chest X-Ray 02/02/21 23:44 IMP
--- NOTE | 2021-02-04 15:44 | PM.IMPN ---
Progress Note: A&P Assessment and Plan (1) Pilonidal sinus with abscess: Code(s): L05.02 - Pilonidal sinus with abscess Status: Acute Assessment and Plan: ED reported drainage of purulent from the sinus track CT abdomen does not reveal presence of sinus track POD #1-->s/p complex incision and drainage of perineal abscess measuring 5x4x10 cm with noted vaginal fistula Wound care IV vanc and cefepime GS following recommendations appreciated (2) Sepsis: Code(s): A41.9 - Sepsis, unspecified organism Status: Acute Assessment and Plan: sepsis which criteria with SIRS and underlying infection continue IV hydration lactate normal CRP is elevated (3) Diabetes: Qualifiers: Diabetes mellitus type: type 2 Diabetes mellitus residential insulin use: without residential use Diabetes mellitus complication status: without complication Qualified Code(s): E11.9 - Type 2 diabetes mellitus without complications Code(s): E11.9 - Type 2 diabetes mellitus without complications Status: Chronic Assessment and Plan: hold metformin BG 90s-130s SSI, accuchecks Monitor (4) Chronic kidney disease: Qualifiers: Chronic kidney disease stage: unspecified stage Qualified Code(s): N18.9 - Chronic kidney disease, unspecified Code(s): N18.9 - Chronic kidney disease, unspecified Status: Acute Assessment and Plan: JAQUAN on Chronic kidney disease stage 3 gentle IV hydration hold diuretic and losartan Cr improving Continue IVF (5) Rectal cancer: Code(s): C20 - Malignant neoplasm of rectum Status: Resolved (6) High cholesterol: Code(s): E78.00 - Pure hypercholesterolemia, unspecified Status: Inactive (7) Colorectal cancer: Code(s): C19 - Malignant neoplasm of rectosigmoid junction Status: Acute Assessment and Plan: Hx of rectal cancer status post colectomy and colostomy status in 2007 Seen by colorectal surgeon, at [place] (8) HTN (hypertension): Code(s): I10 - Essential (primary) hypertension Status: Acute (9) 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 - Other female genital tract fistulae Status: Acute Assessment and Plan: Will require vaginal reconstruction gs following, recommendations appreciated Urology consulted, recommends tertiary care center Spoke with [facility] colorectal surgeon, recommends f/u o/p with [facility] Additional Plan DVT prophylaxis Lovenox # full code status Subjective Date/time seen: 02/04/21 15:44 Interval history: pt seen and evaluated; labs, vs, diagnostic reports and consult notes reviewed; no acute events overnight; pt reluctant about transfer to another hospital Review of Systems Review of Systems: All systems reviewed & are unremarkable except as noted in HPI and below Exam Narrative: GENERAL: Well-appearing, well-nourished, and in no acute distress. HEAD: Normocephalic, atraumatic. EYES: EOMI. NECK: Supple. nontender CHEST: Clear to auscultation. No respiratory distress. HEART: Regular rate and rhythm. No murmur heard. Normal peripheral pulses. ABDOMEN: Soft, nontender, nondistended, has colostomy back in situ Examination of the lower back there is open sinus approximately 4 x 4 mm circular shaped draining serosanguineous. Nontender to touch currently. emergency physician reported large amount of purulent drain is earlier EXTREMITIES: Normal range of motion. No edema. SKIN: Warm, dry, no rash. NEURO: No focal deficits. Alert and oriented x3. PSYCH: Normal mood and affect. Objective Data Vital Signs Vital Signs: Vital Signs - 24 hr 02/03/21 16:00 02/03/21 20:00 02/03/21 23:38 Temperature 36.4 C 36.7 C 37.4 C Pulse Rate 69 73 68 Respiratory Rate 16 18 17 Blood Pressure 130/59 L 126/55 L 126/63 Pulse Oximetry 100 98 100 02/04/21 03:35 02/04/21 08:00 02/04/21 12:00 Temperature 37.6 C H 36.4 C 36.6 C Pulse Rate 76 88 84 Respiratory
[2021-02-04 16:00] VITALS: BP 158/73; PULSE 79; RESP 16; TEMP 36.7; O2SAT 98
[2021-02-04 17:37] LABS: Glucose Point of Care 105 mg/dl (65-105)
[2021-02-04 22:00] VITALS: BP 147/55; PULSE 72; RESP 16; TEMP 36.8; O2SAT 99
[2021-02-05 00:52] LABS: Glucose Point of Care 110 mg/dl (65-105)
[2021-02-05 06:00] VITALS: BP 158/60; PULSE 70; RESP 16; TEMP 36.8; O2SAT 100
[2021-02-05 06:39] LABS: Alanine Aminotransferase 22 U/L (4-35); Albumin Level 3.2 g/dL (3.5-5.1); Alkaline Phosphatase 66 U/L (38-126); Anion Gap 11 mmol/L (8-16); Aspartate Amino Transferase 27 U/L (14-36); Bilirubin,Total 0.5 mg/dL (0.2-1.3); Blood Urea Nitrogen 21 mg/dL (7-17); Calcium 9.3 mg/dL (8.4-10.2); Carbon Dioxide 21 mmol/L (22-30); Chloride 104 mmol/L (98-107); Estimated CRCL calculation 33 ml/min; Estimated Glomerular Filt Rate 54; Glucose 114 mg/dL (65-110); Potassium 4.3 mmol/L (3.4-5.0); Sodium 136 mmol/L (137-145)
[2021-02-05] MEDS: ONDANSETRON INJ 4 MG/2 ML VIAL IV PUSH ×3 (06:46→17:28)
[2021-02-05 08:14] LABS: Glucose Point of Care 132 mg/dl (65-105)
[2021-02-05] MEDS: LOSARTAN POTASSIUM 100 MG TABLET PO (08:25)
[2021-02-05] MEDS: EZETIMIBE 10 MG TABLET PO (08:25)
[2021-02-05] MEDS: metFORMIN HCL 500 MG TABLET PO (08:25)
[2021-02-05] MEDS: allopurinoL 300 MG TABLET PO (08:25)
[2021-02-05] MEDS: FENOFIBRATE 160 MG TABLET PO (08:25)
[2021-02-05] MEDS: ENOXAPARIN 30 MG/0.3 ML SYRINGE SUB-Q (08:26)
[2021-02-05] MEDS: TRIAMTERENE 37.5 MG/HCTZ 25 MG (MAXZIDE) TABLET 2 TAB PO (08:26)
[2021-02-05 08:48] LABS: Hematocrit 29.9 % (37.0-47.0); Hemoglobin 9.4 g/dL (12.0-15.0); Mean Corpuscular HGB Conc 31.4 g/dl (32-36); Mean Corpuscular Hemoglobin 30.6 pg (26-34); Mean Corpuscular Volume 97.4 fl (80-100); Platelet Count Result 395 k/mm3 (150-375); Red Blood Count 3.07 M/mm3 (4.2-5.4); Red Cell Distribution Width 13.8 % (11.5-14.5); White Blood Count 8.2 K/mm3 (4.5-10.0)
[2021-02-05] MEDS: SODIUM CHLORIDE 0.9% IV 1,000 ML 75 ML IV CONT ×2 (10:44→22:40)
--- NOTE | 2021-02-05 11:06 | PM.IMPN ---
Progress Note: A&P Assessment and Plan (1) Pilonidal sinus with abscess: Code(s): L05.02 - Pilonidal sinus with abscess Status: Acute Assessment and Plan: ED reported drainage of purulent from the sinus track CT abdomen does not reveal presence of sinus track POD #2-->s/p complex incision and drainage of perineal abscess measuring 5x4x10 cm with noted vaginal fistula Wound care IV vanc and cefepime GS following recommendations appreciated Will likely need placement (2) Sepsis: Code(s): A41.9 - Sepsis, unspecified organism Status: Acute Assessment and Plan: sepsis which criteria with SIRS and underlying infection continue IV hydration lactate normal CRP is elevated (3) Diabetes: Qualifiers: Diabetes mellitus type: type 2 Diabetes mellitus chcf insulin use: without buttermaker use Diabetes mellitus complication status: without complication Qualified Code(s): E11.9 - Type 2 diabetes mellitus without complications Code(s): E11.9 - Type 2 diabetes mellitus without complications Status: Chronic Assessment and Plan: hold metformin BG 90s-130s SSI, accuchecks Monitor (4) Chronic kidney disease: Qualifiers: Chronic kidney disease stage: unspecified stage Qualified Code(s): N18.9 - Chronic kidney disease, unspecified Code(s): N18.9 - Chronic kidney disease, unspecified Status: Acute Assessment and Plan: JAQUAN on Chronic kidney disease stage 3 gentle IV hydration hold diuretic and losartan Cr improving Continue IVF (5) Rectal cancer: Code(s): C20 - Malignant neoplasm of rectum Status: Resolved (6) High cholesterol: Code(s): E78.00 - Pure hypercholesterolemia, unspecified Status: Inactive (7) Colorectal cancer: Code(s): C19 - Malignant neoplasm of rectosigmoid junction Status: Acute Assessment and Plan: Hx of rectal cancer status post colectomy and colostomy status in 2007 Seen by colorectal surgeon, at [place] (8) HTN (hypertension): Code(s): I10 - Essential (primary) hypertension Status: Acute (9) 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 - Other female genital tract fistulae Status: Acute Assessment and Plan: Will require vaginal reconstruction gs following, recommendations appreciated Urology consulted, recommends tertiary care center Spoke with [facility] colorectal surgeon, recommends f/u o/p with [facility] Additional Plan DVT prophylaxis Lovenox #full code status Subjective Date/time seen: 02/05/21 11:06 Interval history: pt seen and evaluated; labs, vs, diagnostic reports and consult notes reviewed; no acute events overnight; had a long conversation with patient regarding current treatment plan; she verbalized understanding of current plan; this morning she is feeling nauseous Review of Systems Review of Systems: All systems reviewed & are unremarkable except as noted in HPI and below Exam Narrative: GENERAL: Well-appearing, well-nourished, and in no acute distress. HEAD: Normocephalic, atraumatic. EYES: EOMI. NECK: Supple. nontender CHEST: Clear to auscultation. No respiratory distress. HEART: Regular rate and rhythm. No murmur heard. Normal peripheral pulses. ABDOMEN: Soft, nontender, nondistended, has colostomy back in situ Examination of the lower back there is open sinus approximately 4 x 4 mm circular shaped draining serosanguineous. Nontender to touch currently. emergency physician reported large amount of purulent drain is earlier EXTREMITIES: Normal range of motion. No edema. SKIN: Warm, dry, no rash. NEURO: No focal deficits. Alert and oriented x3. PSYCH: Normal mood and affect. Objective Data Vital Signs Vital Signs: Vital Signs - 24 hr 02/04/21 12:00 02/04/21 16:00 02/04/21 22:00 Temperature 36.6 C 36.7 C 36.8 C Pulse Rate 84 79 72 Respiratory Rate 14 16 16 Blood Pressure 167/69 H 158/73 H 147/55 H Pulse Oximet
--- NOTE | 2021-02-05 11:12 | PCOTNOTE ---
Attempted OT evaluation x2 this AM. Patient continues to be nauseated and requesting to rest at this time. Will continue to attempt.
--- NOTE | 2021-02-05 11:15 | PCPTNOTE ---
Attempted PT evaluation x2 this AM. Patient continues to be nauseated and requesting to rest at this time. Will attempt at a later date/time.
[2021-02-05 11:46] LABS: Glucose Point of Care 139 mg/dl (65-105)
--- NOTE | 2021-02-05 13:08 | PCOTNOTE ---
Attempted OT evaluation again this afternoon. Patient continues to be too nauseated and requesting to try later. Will attempt again tomorrow.
--- NOTE | 2021-02-05 13:09 | PCPTNOTE ---
Attempted PT evaluation again this afternoon, pt stated she still was not feeling well requested to wait and participate in PT tomorrow. Will attempt at a later date/time.
[2021-02-05 14:00] VITALS: BP 164/78; PULSE 81; RESP 16; TEMP 36.8; O2SAT 97
[2021-02-05 16:40] LABS: Glucose Point of Care 117 mg/dl (65-105)
[2021-02-05 22:00] VITALS: BP 158/84; PULSE 99; RESP 18; TEMP 36.4; O2SAT 97
[2021-02-05] MEDS: METOCLOPRAMIDE HCL INJ 10 MG/2 ML VIAL IV PUSH (22:40)
[2021-02-05 22:46] LABS: Glucose Point of Care 160 mg/dl (65-105)
[2021-02-06] MEDS: LACTATED RINGERS 1,000 ML 75 ML IV CONT ×2 (00:08→15:29)
[2021-02-06 02:13] LABS: Vancomycin Trough 8.2 ug/mL (10.0-20.0)
[2021-02-06] MEDS: ONDANSETRON INJ 4 MG/2 ML VIAL IV PUSH (03:01)
[2021-02-06 06:00] VITALS: BP 140/57; PULSE 55; RESP 18; TEMP 36.3; O2SAT 97
[2021-02-06 08:15] LABS: Glucose Point of Care 113 mg/dl (65-105)
[2021-02-06] MEDS: ENOXAPARIN 30 MG/0.3 ML SYRINGE SUB-Q (08:42)
[2021-02-06] MEDS: LOSARTAN POTASSIUM 100 MG TABLET PO (08:43)
[2021-02-06] MEDS: TRIAMTERENE 37.5 MG/HCTZ 25 MG (MAXZIDE) TABLET 2 TAB PO (08:44)
--- NOTE | 2021-02-06 11:01 | PCPTNOTE ---
On 02/06/21, the student, Joe Hoover, provided care and completed [facility] documentation on this patient. I have reviewed the student's documentation and agree with the findings.
[2021-02-06 11:49] LABS: Glucose Point of Care 101 mg/dl (65-105)
[2021-02-06 14:00] VITALS: BP 178/55; PULSE 74; RESP 16; TEMP 36.1; O2SAT 98
--- NOTE | 2021-02-06 16:47 | PM.IMPN ---
Progress Note: A&P Assessment and Plan (1) Pilonidal sinus with abscess: Code(s): L05.02 - Pilonidal sinus with abscess Status: Acute Assessment and Plan: ED reported drainage of purulent from the sinus track CT abdomen does not reveal presence of sinus track POD #2-->s/p complex incision and drainage of perineal abscess measuring 5x4x10 cm with noted vaginal fistula Wound care IV vanc and cefepime GS following recommendations appreciated Will likely need placement (2) Sepsis: Code(s): A41.9 - Sepsis, unspecified organism Status: Acute Assessment and Plan: sepsis which criteria with SIRS and underlying infection continue IV hydration lactate normal CRP is elevated (3) Diabetes: Qualifiers: Diabetes mellitus type: type 2 Diabetes mellitus residential insulin use: without terminal gauger use Diabetes mellitus complication status: without complication Qualified Code(s): E11.9 - Type 2 diabetes mellitus without complications Code(s): E11.9 - Type 2 diabetes mellitus without complications Status: Chronic Assessment and Plan: hold metformin BG 90s-130s SSI, accuchecks Monitor (4) Chronic kidney disease: Qualifiers: Chronic kidney disease stage: unspecified stage Qualified Code(s): N18.9 - Chronic kidney disease, unspecified Code(s): N18.9 - Chronic kidney disease, unspecified Status: Acute Assessment and Plan: JAQUAN on Chronic kidney disease stage 3 gentle IV hydration hold diuretic and losartan Cr improving Continue IVF (5) Rectal cancer: Code(s): C20 - Malignant neoplasm of rectum Status: Resolved (6) High cholesterol: Code(s): E78.00 - Pure hypercholesterolemia, unspecified Status: Inactive (7) Colorectal cancer: Code(s): C19 - Malignant neoplasm of rectosigmoid junction Status: Acute Assessment and Plan: Hx of rectal cancer status post colectomy and colostomy status in 2007 Seen by colorectal surgeon, at [place] (8) HTN (hypertension): Code(s): I10 - Essential (primary) hypertension Status: Acute (9) 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 - Other female genital tract fistulae Status: Acute Assessment and Plan: Will require vaginal reconstruction gs following, recommendations appreciated Urology consulted, recommends tertiary care center Spoke with [facility] colorectal surgeon, recommends f/u o/p with [facility] (10) Postoperative ileus: Code(s): K91.89 - Other postprocedural complications and disorders of digestive system; K56.7 - Ileus, unspecified Status: Acute Assessment and Plan: KUB-->Development of several moderately distended small bowel loops, ileus or possibly low-grade obstruction NPO with ice chips GS following Antiemetics Supportive care Will try clear in a.m. Additional Plan DVT prophylaxis Lovenox #full code status Subjective Date/time seen: 02/06/21 16:47 Interval history: pt seen and evaluated; overnight pt had no acute events overnight; had some nausea and vomiting last evening; this morning she feels a little better and ostomoy has stool Review of Systems Review of Systems: All systems reviewed & are unremarkable except as noted in HPI and below Exam Narrative: GENERAL: Well-appearing, well-nourished, and in no acute distress. HEAD: Normocephalic, atraumatic. EYES: EOMI. NECK: Supple. nontender CHEST: Clear to auscultation. No respiratory distress. HEART: Regular rate and rhythm. No murmur heard. Normal peripheral pulses. ABDOMEN: Soft, nontender, nondistended, has colostomy Examination of the lower back there is open sinus approximately 4 x 4 mm circular shaped draining serosanguineous. Nontender to touch currently. emergency physician reported large amount of purulent drain is earlier EXTREMITIES: Normal range of motion. No edema. SKIN: Warm, dry, no rash. NEURO: No focal deficits. Alert and orien
[2021-02-06 16:53] LABS: Glucose Point of Care 100 mg/dl (65-105)
[2021-02-06 22:00] VITALS: BP 176/70; PULSE 70; RESP 18; TEMP 36.4; O2SAT 95
[2021-02-06 22:10] LABS: Glucose Point of Care 85 mg/dl (65-105)
[2021-02-06 22:10] LABS: Glucose Point of Care 91 mg/dl (65-105)
[2021-02-07] LABS: Glucose Point of Care 80 mg/dl (65-105)
[2021-02-07] MEDS: LACTATED RINGERS 1,000 ML 75 ML IV CONT ×2 (02:35→18:08)
[2021-02-07 05:53] LABS: Glucose Point of Care 92 mg/dl (65-105)
[2021-02-07 06:00] VITALS: BP 182/52; PULSE 60; RESP 18; TEMP 36.2; O2SAT 100
[2021-02-07 06:57] LABS: Hematocrit 31.3 % (37.0-47.0); Hemoglobin 9.8 g/dL (12.0-15.0); Mean Corpuscular HGB Conc 31.3 g/dl (32-36); Mean Corpuscular Hemoglobin 30.2 pg (26-34); Mean Corpuscular Volume 96.3 fl (80-100); Mean Platelet Volume 10.1 fl (7.4-10.4); Platelet Count Result 443 k/mm3 (150-375); Red Blood Count 3.25 M/mm3 (4.2-5.4); Red Cell Distribution Width 13.8 % (11.5-14.5)
[2021-02-07 07:02] LABS: Anion Gap 9 mmol/L (8-16); Blood Urea Nitrogen 16 mg/dL (7-17); Calcium 9.7 mg/dL (8.4-10.2); Carbon Dioxide 25 mmol/L (22-30); Chloride 100 mmol/L (98-107); Estimated CRCL calculation 33 ml/min; Estimated Glomerular Filt Rate 54; Glucose 93 mg/dL (65-110); Potassium 3.9 mmol/L (3.4-5.0); Sodium 134 mmol/L (137-145)
[2021-02-07] MEDS: hydrALAZINE HCL 20 MG/ML VIAL 10 MG IV PUSH (07:15)
[2021-02-07 07:37] LABS: Glucose Point of Care 77 mg/dl (65-105)
[2021-02-07] MEDS: ENOXAPARIN 30 MG/0.3 ML SYRINGE SUB-Q (09:48)
[2021-02-07] MEDS: TRIAMTERENE 37.5 MG/HCTZ 25 MG (MAXZIDE) TABLET 2 TAB PO (09:48)
[2021-02-07] MEDS: EZETIMIBE 10 MG TABLET PO (09:48)
[2021-02-07] MEDS: FENOFIBRATE 160 MG TABLET PO (09:48)
[2021-02-07] MEDS: LOSARTAN POTASSIUM 100 MG TABLET PO (09:48)
[2021-02-07] MEDS: metFORMIN HCL 500 MG TABLET PO (09:48)
[2021-02-07] MEDS: allopurinoL 300 MG TABLET PO (09:48)
--- NOTE | 2021-02-07 10:30 | PM.PNGS ---
Progress Note: A&P Assessment and Plan (1) Abscess of sacrum: Code(s): M46.28 - Osteomyelitis of vertebra, sacral and sacrococcygeal region Status: Acute Assessment and Plan: Wound looks good today. No purulent drainage. Continue with local wound care, wet to dry packing BID. 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 We recommend transfer to tertiary care facility. APPRENTICE JOCKEY and Colorectal were called and plan would be to follow-up with colorectal as an outpatient. (3) Postoperative ileus: Code(s): K91.89 - Other postprocedural complications and disorders of digestive system; K56.7 - Ileus, unspecified Status: Acute Assessment and Plan: Seems to be resolving. Abd exam benign. No further nausea or vomiting. Will start advancing diet as tolerated. Encouraged increasing activity. Additional Plan I have discussed the patient's case and plan of care with Dr. Shelton. Subjective Subjective Date/Time Seen: 02/07/21 10:30 Post Op day: 4 Patient reports: no new complaints, feels better, pain is less and bowel movement (+ ostomy gas/stool in bag) Interval history: 75 yo female who presented with perineal abscess, who underwent I&D of complex perineal abscess on 02/03/21. Found to have a vaginal fistula during surgery. Patient seen this morning and reports feeling better today. Her main complaint is generalized weakness and feeling shaky without eating. She is currently NPO due to recent vomiting with ileus. Denies any nausea or vomiting overnight. No other complaints at this time. Buttock and perineal pain much improved. Review of Systems Review of Systems: All systems reviewed & are unremarkable except as noted in HPI and below Gastrointestinal: Gastrointestinal: Reports as per HPI and Reports no additional gastrointestinal complaints Exam Const: General: comfortable, no acute distress, alert and awake Orientation/consciousness: patient oriented x3 Resp: Effort & Inspection: normal respiratory effort Auscultation: wheezes expiratory wheezes Cardio: Rate: regular rate Rhythm: regular rhythm GI: Inspection: non-distended and other ( Colostomy with gas and liquid stool and bag) GI Palp: Yes Soft to palpation, No Tenderness to palpation present (GI) and No Guarding due to palpation present (GI) Auscultation: normal bowel sounds Skin: Other: Dressing in place posterior to anal verge was removed. Packing removed. Open wound with some areas of granulation tissue forming, no purulent drainage. Wound packed and dressed. Neuro: General: moves all extremities and no focal motor deficits Extrem: General: no clubbing, cyanosis or edema and no calf tenderness Psych: Mental Status: mental status grossly normal Insight: Good insight present (Psych) Judgement: Good judgement present (Psych) Objective Data Vital Signs Vital Signs: Vital Signs - 24 hr 02/06/21 14:00 02/06/21 22:00 02/07/21 06:00 Temperature 96.9 F L 97.5 F L 97.2 F L Pulse Rate 74 70 60 Respiratory Rate 16 18 18 Blood Pressure 178/55 H 176/70 H 182/52 H Pulse Oximetry 98 95 100 Intake/Output Intake/Output: Intake & Output 02/04/21 02/05/21 02/06/21 02/07/21 23:59 23:59 23:59 23:59 Intake Total 2836 2722 1640 1300 Output Total 830 1050 1550 700 Balance 2006 1672 90 600 Meds/Results Medications: Active Medications Generic Name Dose Route Start Last Admin Trade Name Freq PRN Reason Stop Dose Admin Acetaminophen 650 mg 02/03/21 01:55 02/03/21 16:58 Acetaminophen 325 Mg Tablet PO 650 mg Q4H PRN Administration Mild Pain (1-3) or Fever Hydrocodone Bitart/Acetaminophen 1 tab 02/04/21 10:07 02/04/21 23:57 Hydrocodone/Acetaminophen (*Crx) 5-325 Mg Tablet PO 1 tab Q6H PRN Administration Pain Rated 4-6 Hydrocodone Bitart/Acetaminophen 2 tab 02/04/21 10:07 Hydrocodone/Acetaminophe
[2021-02-07 11:39] LABS: Glucose Point of Care 116 mg/dl (65-105)
[2021-02-07 12:00] VITALS: BP 172/74; PULSE 97; RESP 20; TEMP 36.6; O2SAT 98
--- NOTE | 2021-02-07 12:57 | PM.IMPN ---
Progress Note: A&P Assessment and Plan (1) Pilonidal sinus with abscess: Code(s): L05.02 - Pilonidal sinus with abscess Status: Acute Assessment and Plan: ED reported drainage of purulent from the sinus track CT abdomen does not reveal presence of sinus track POD #3-->s/p complex incision and drainage of perineal abscess measuring 5x4x10 cm with noted vaginal fistula Wound care IV vanc and cefepime GS following, recommendations appreciated Will likely need placement (2) Sepsis: Code(s): A41.9 - Sepsis, unspecified organism Status: Acute Assessment and Plan: sepsis which criteria with SIRS and underlying infection continue IV hydration lactate normal CRP is elevated (3) Diabetes: Qualifiers: Diabetes mellitus type: type 2 Diabetes mellitus termite control technician insulin use: without termite control technician use Diabetes mellitus complication status: without complication Qualified Code(s): E11.9 - Type 2 diabetes mellitus without complications Code(s): E11.9 - Type 2 diabetes mellitus without complications Status: Chronic Assessment and Plan: hold metformin BG 90s-130s SSI, accuchecks Monitor (4) Chronic kidney disease: Qualifiers: Chronic kidney disease stage: unspecified stage Qualified Code(s): N18.9 - Chronic kidney disease, unspecified Code(s): N18.9 - Chronic kidney disease, unspecified Status: Acute Assessment and Plan: JAQUAN on Chronic kidney disease stage 3 gentle IV hydration hold diuretic and losartan Cr improving Continue IVF (5) Rectal cancer: Code(s): C20 - Malignant neoplasm of rectum Status: Resolved (6) High cholesterol: Code(s): E78.00 - Pure hypercholesterolemia, unspecified Status: Inactive (7) Colorectal cancer: Code(s): C19 - Malignant neoplasm of rectosigmoid junction Status: Acute Assessment and Plan: Hx of rectal cancer status post colectomy and colostomy status in 2007 Seen by colorectal surgeon, at [place] (8) HTN (hypertension): Code(s): I10 - Essential (primary) hypertension Status: Acute Assessment and Plan: Hydralazine prn Continue home regimen Adjust if needed Monitor closely (9) 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 - Other female genital tract fistulae Status: Acute Assessment and Plan: Will require vaginal reconstruction gs following, recommendations appreciated Urology consulted, recommends tertiary care center Spoke with [facility] colorectal surgeon, recommends f/u o/p with [facility] (10) Postoperative ileus: Code(s): K91.89 - Other postprocedural complications and disorders of digestive system; K56.7 - Ileus, unspecified Status: Acute Assessment and Plan: KUB-->Development of several moderately distended small bowel loops, ileus or possibly low-grade obstruction Advance to clears GS following Antiemetics Supportive care Additional Plan DVT prophylaxis Lovenox #full code status Subjective Date/time seen: 02/07/21 12:57 Interval history: pt seen and evaluated; overnight pt had no acute events overnight; this morning she feels weak; BP is elevated; no nausea or vomiting Review of Systems Review of Systems: All systems reviewed & are unremarkable except as noted in HPI and below Exam Narrative: GENERAL: Well-appearing, well-nourished, and in no acute distress. HEAD: Normocephalic, atraumatic. EYES: EOMI. NECK: Supple. nontender CHEST: Clear to auscultation. No respiratory distress. HEART: Regular rate and rhythm. No murmur heard. Normal peripheral pulses. ABDOMEN: Soft, nontender, nondistended, has colostomy Examination of the lower back there is open sinus approximately 4 x 4 mm circular shaped draining serosanguineous. Nontender to touch currently. emergency physician reported large amount of purulent drain is earlier EXTREMITIES: Normal range of motion. No edema. SKIN: Warm, dry, no rash
[2021-02-07 17:05] LABS: Glucose Point of Care 106 mg/dl (65-105)
[2021-02-07] MEDS: diphenhydrAMINE HCl CAP 25 MG CAPSULE PO (18:07)
[2021-02-07 20:00] VITALS: BP 163/61; PULSE 71; RESP 18; TEMP 36.2; O2SAT 97
[2021-02-07] MEDS: HYDROcodone/acetaminophen (*CRX) 5-325 MG TABLET 1 TAB PO (20:03)
[2021-02-07 21:53] LABS: Glucose Point of Care 89 mg/dl (65-105)
[2021-02-07] MEDS: ACETAMINOPHEN 325 MG TABLET 650 MG PO (23:20)
[2021-02-08] VITALS: BP 157/57; PULSE 60; RESP 18; TEMP 36.2; O2SAT 98
[2021-02-08 04:00] VITALS: BP 179/60; PULSE 64; RESP 18; TEMP 35.9; O2SAT 100
[2021-02-08] MEDS: diphenhydrAMINE HCl INJ 50 MG/ML VIAL IV PUSH (05:17)
[2021-02-08] MEDS: hydrALAZINE HCL 20 MG/ML VIAL 10 MG IV PUSH (05:18)
[2021-02-08 06:28] LABS: Glucose Point of Care 111 mg/dl (65-105)
[2021-02-08 08:00] VITALS: PULSE 64; RESP 18; O2SAT 100
[2021-02-08 08:26] LABS: Glucose Point of Care 106 mg/dl (65-105)
[2021-02-08] MEDS: ENOXAPARIN 30 MG/0.3 ML SYRINGE SUB-Q (08:50)
[2021-02-08] MEDS: EZETIMIBE 10 MG TABLET PO (08:50)
[2021-02-08] MEDS: metFORMIN HCL 500 MG TABLET PO (08:51)
[2021-02-08] MEDS: allopurinoL 300 MG TABLET PO (08:51)
[2021-02-08] MEDS: FENOFIBRATE 160 MG TABLET PO (08:51)
[2021-02-08] MEDS: LOSARTAN POTASSIUM 100 MG TABLET PO (08:55)
[2021-02-08] MEDS: TRIAMTERENE 37.5 MG/HCTZ 25 MG (MAXZIDE) TABLET 2 TAB PO (08:56)
--- NOTE | 2021-02-08 08:57 | PM.IMPN ---
Progress Note: A&P Assessment and Plan (1) Pilonidal sinus with abscess: Code(s): L05.02 - Pilonidal sinus with abscess Status: Acute Assessment and Plan: ED reported drainage of purulent from the sinus track CT abdomen does not reveal presence of sinus track POD #4-->s/p complex incision and drainage of perineal abscess measuring 5x4x10 cm with noted vaginal fistula Wound care IV vanc and cefepime GS following, recommendations appreciated culture wound if possible (2) Diabetes: Qualifiers: Diabetes mellitus complication status: without complication Diabetes mellitus custodial insulin use: without manager long term care use Diabetes mellitus type: type 2 Qualified Code(s): E11.9 - Type 2 diabetes mellitus without complications Code(s): E11.9 - Type 2 diabetes mellitus without complications Status: Chronic Assessment and Plan: hold metformin BG 90s-130s SSI, accuchecks Monitor (3) Chronic kidney disease: Qualifiers: Chronic kidney disease stage: unspecified stage Qualified Code(s): N18.9 - Chronic kidney disease, unspecified Code(s): N18.9 - Chronic kidney disease, unspecified Status: Acute Assessment and Plan: JAQUAN on Chronic kidney disease stage 3 gentle IV hydration hold diuretic and losartan Cr improving Continue IVF (4) Rectal cancer: Code(s): C20 - Malignant neoplasm of rectum Status: Resolved (5) Colorectal cancer: Code(s): C19 - Malignant neoplasm of rectosigmoid junction Status: Acute Assessment and Plan: Hx of rectal cancer status post colectomy and colostomy status in 2007 Seen by colorectal surgeon, at [place] (6) HTN (hypertension): Code(s): I10 - Essential (primary) hypertension Status: Acute Assessment and Plan: Hydralazine prn Continue home regimen Adjust if needed Monitor closely (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 - Other female genital tract fistulae Status: Acute Assessment and Plan: Will require vaginal reconstruction gs following, recommendations appreciated Urology consulted, recommends tertiary care center Spoke with [facility] colorectal surgeon, recommends f/u o/p with [facility] (8) Postoperative ileus: Code(s): K91.89 - Other postprocedural complications and disorders of digestive system; K56.7 - Ileus, unspecified Status: Acute Assessment and Plan: KUB-->Development of several moderately distended small bowel loops, ileus or possibly low-grade obstruction Advance to clears GS following Antiemetics Supportive care Additional Plan perineal abscess 5x4x10, post-op day 4 from urology I&D; currently on Vanc/cefepime, will eval if there is specimen we can culture to narrow antibiotics pt found to have vaginal fistula which urology rec t/x to tertiary [facility] for definitive treatment; case discussed with [facility] colorectal surgeon who recommends outpt f/up at that facility for possible vaginal reconstruction In the mean time, continue diabetes management (w/o metformin) and htn, dld, etc. Adv diet as tolerated & work with care coordination regarding placement Time Spent With Patient Time with patient: less than 15 minutes Subjective Date/time seen: 02/08/21 08:57 no acute medical complaints Review of Systems Review of Systems: All systems reviewed & are unremarkable except as noted in HPI and below Exam Const: General: no acute distress Neck: Neck: no JVD Resp: Effort & Inspection: normal respiratory effort Auscultation: clear to auscultation bilaterally Cardio: Rate: regular rate Rhythm: regular rhythm GI: GI Palp: Yes Soft to palpation and No Tenderness to palpation present (GI) Objective Data Vital Signs Vital Signs: Vital Signs - 24 hr 02/07/21 12:00 02/07/21 20:00 02/08/21 00:00 Temperature 97.9 F 97.2 F L 97.2 F L Pulse Rate 97 71 60 Respiratory Rate 20 18 18 Blood Pressure 172/74 H 163/61 H 157/57 H
[2021-02-08 11:29] LABS: Glucose Point of Care 118 mg/dl (65-105)
[2021-02-08 14:00] VITALS: BP 162/78; PULSE 82; RESP 17; TEMP 36.5; O2SAT 97
[2021-02-08 16:41] LABS: Glucose Point of Care 91 mg/dl (65-105)
[2021-02-08] MEDS: LACTATED RINGERS 1,000 ML 75 ML IV CONT (19:28)
[2021-02-08 20:00] VITALS: BP 151/70; PULSE 80; RESP 18; TEMP 36.7; O2SAT 97
[2021-02-08 21:37] LABS: Glucose Point of Care 131 mg/dl (65-105)
[2021-02-09] VITALS (7 sets, daily range): BP systolic 164–188; BP diastolic 51–82; PULSE 65–94; RESP 16–18; TEMP 36.2–37.2; O2SAT 97–99
[2021-02-09 01:54] LABS: Vancomycin Trough 16.4 ug/mL (10.0-20.0)
[2021-02-09 06:49] LABS: Basophils Percent Auto 0.4 % (0.2-1.2); Eosinophils Absolute Auto 0.4 K/mm3 (0-0.3); Eosinophils Percent Auto 3.9 % (0-4.4); Hematocrit 30.3 % (37.0-47.0); Hemoglobin 9.6 g/dL (12.0-15.0); Immature Granulocyte Absolute 1.12 K/mm3 (0.00-0.031); Immature Granulocyte Percent A 11.3 % (0-0.5); Lymphocytes Absolute Auto 0.78 K/mm3 (0.9-3.2); Lymphocytes Percent Auto 7.9 % (18.3-44.2); Mean Corpuscular HGB Conc 31.7 g/dl (32-36); Mean Corpuscular Hemoglobin 30.4 pg (26-34); Mean Corpuscular Volume 95.9 fl (80-100); Monocytes Absolute Auto 0.7 K/mm3 (0.1-0.6); Monocytes Percent Auto 6.7 % (2.6-8.5); Neutrophils Absolute Auto 6.9 K/mm3 (1.3-6.7); Neutrophils Percent Auto 69.8 % (45.5-73.1); Platelet Count Result 454 k/mm3 (150-375); Red Blood Count 3.16 M/mm3 (4.2-5.4); Red Cell Distribution Width 14.1 % (11.5-14.5); White Blood Count 9.9 K/mm3 (4.5-10.0)
[2021-02-09 07:06] LABS: Alanine Aminotransferase 29 U/L (4-35); Albumin Level 3.1 g/dL (3.5-5.1); Alkaline Phosphatase 110 U/L (38-126); Anion Gap 9 mmol/L (8-16); Aspartate Amino Transferase 40 U/L (14-36); Bilirubin,Total 0.3 mg/dL (0.2-1.3); Blood Urea Nitrogen 15 mg/dL (7-17); Calcium 9.9 mg/dL (8.4-10.2); Carbon Dioxide 22 mmol/L (22-30); Chloride 102 mmol/L (98-107); Estimated CRCL calculation 30 ml/min; Estimated Glomerular Filt Rate 49; Glucose 119 mg/dL (65-110); Magnesium 1.4 mg/dL (1.6-2.3); Phosphorus 2.9 mg/dL (2.5-4.5); Potassium 3.5 mmol/L (3.4-5.0); Sodium 133 mmol/L (137-145)
[2021-02-09 08:34] LABS: Glucose Point of Care 122 mg/dl (65-105)
[2021-02-09] MEDS: ENOXAPARIN 30 MG/0.3 ML SYRINGE SUB-Q (09:40)
[2021-02-09] MEDS: EZETIMIBE 10 MG TABLET PO (09:40)
[2021-02-09] MEDS: FENOFIBRATE 160 MG TABLET PO (09:40)
[2021-02-09] MEDS: allopurinoL 300 MG TABLET PO (09:40)
[2021-02-09] MEDS: EUCERIN CREAM 120 GM JAR 1 APPLIC TOPICAL (09:41)
[2021-02-09] MEDS: TRIAMTERENE 37.5 MG/HCTZ 25 MG (MAXZIDE) TABLET 2 TAB PO (09:41)
[2021-02-09] MEDS: LOSARTAN POTASSIUM 100 MG TABLET PO (09:42)
--- NOTE | 2021-02-09 10:06 | PM.IMPN ---
Progress Note: A&P Assessment and Plan (1) Pilonidal sinus with abscess: Code(s): L05.02 - Pilonidal sinus with abscess Status: Acute Assessment and Plan: ED reported drainage of purulent from the sinus track CT abdomen does not reveal presence of sinus track POD #4-->s/p complex incision and drainage of perineal abscess measuring 5x4x10 cm with noted vaginal fistula Wound care IV vanc and cefepime GS following, recommendations appreciated culture wound if possible (2) Diabetes: Qualifiers: Diabetes mellitus complication status: without complication Diabetes mellitus group home insulin use: without lobsterman use Diabetes mellitus type: type 2 Qualified Code(s): E11.9 - Type 2 diabetes mellitus without complications Code(s): E11.9 - Type 2 diabetes mellitus without complications Status: Chronic Assessment and Plan: hold metformin BG 90s-130s SSI, accuchecks Monitor (3) Chronic kidney disease: Qualifiers: Chronic kidney disease stage: unspecified stage Qualified Code(s): N18.9 - Chronic kidney disease, unspecified Code(s): N18.9 - Chronic kidney disease, unspecified Status: Acute Assessment and Plan: JAQUAN on Chronic kidney disease stage 3 gentle IV hydration hold diuretic and losartan Cr improving Continue IVF (4) Rectal cancer: Code(s): C20 - Malignant neoplasm of rectum Status: Resolved (5) Colorectal cancer: Code(s): C19 - Malignant neoplasm of rectosigmoid junction Status: Acute Assessment and Plan: Hx of rectal cancer status post colectomy and colostomy status in 2007 Seen by colorectal surgeon, at [place] (6) HTN (hypertension): Code(s): I10 - Essential (primary) hypertension Status: Acute Assessment and Plan: Hydralazine prn Continue home regimen Adjust if needed Monitor closely (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 - Other female genital tract fistulae Status: Acute Assessment and Plan: Will require vaginal reconstruction gs following, recommendations appreciated Urology consulted, recommends tertiary care center Spoke with [facility] colorectal surgeon, recommends f/u o/p with [facility] (8) Postoperative ileus: Code(s): K91.89 - Other postprocedural complications and disorders of digestive system; K56.7 - Ileus, unspecified Status: Acute Assessment and Plan: KUB-->Development of several moderately distended small bowel loops, ileus or possibly low-grade obstruction Advance to clears GS following Antiemetics Supportive care Additional Plan perineal abscess 5x4x10, post-op day 5 from urology I&D; currently on Vanc/cefepime, will eval if there is specimen we can culture to narrow antibiotics pt found to have vaginal fistula which urology rec t/x to tertiary [facility] for definitive treatment; case discussed with [facility] colorectal surgeon who recommends outpt f/up at that facility for possible vaginal reconstruction In the mean time, continue diabetes management (w/o metformin) and htn, dld, etc. Adv diet as tolerated & work with care coordination regarding placement Time Spent With Patient Time with patient: less than 15 minutes Subjective Date/time seen: 02/09/21 10:06 resting in bed questions regarding vaginal fistula Review of Systems Review of Systems: All systems reviewed & are unremarkable except as noted in HPI and below Exam Const: General: no acute distress Neck: Neck: no JVD Resp: Effort & Inspection: normal respiratory effort Auscultation: clear to auscultation bilaterally Cardio: Rate: regular rate Rhythm: regular rhythm GI: GI Palp: Yes Soft to palpation and No Tenderness to palpation present (GI) Objective Data Vital Signs Vital Signs: Vital Signs - 24 hr 02/08/21 14:00 02/08/21 20:00 02/09/21 00:00 Temperature 97.7 F 98.1 F 98.6 F Pulse Rate 82 80 71 Respiratory Rate 17 18 18 Blood Pressure 162/78 H
[2021-02-09 12:07] LABS: Glucose Point of Care 114 mg/dl (65-105)
[2021-02-09 17:14] LABS: Glucose Point of Care 129 mg/dl (65-105)
[2021-02-09] MEDS: MAGNESIUM SULF 2 GM/WATER 50ML 2 GM/50 ML BAG IVPB (20:57)
[2021-02-09] MEDS: MORPHINE SULFATE (*CRX) 4 MG/ML INJ IV PUSH (21:04)
[2021-02-09 22:28] LABS: Glucose Point of Care 126 mg/dl (65-105)
[2021-02-10] VITALS: BP 149/49; PULSE 73; RESP 18; TEMP 36.3; O2SAT 98
[2021-02-10] MEDS: LACTATED RINGERS 1,000 ML 75 ML IV CONT (04:14)
[2021-02-10 06:00] VITALS: BP 141/46; PULSE 76; RESP 18; TEMP 35.9; O2SAT 98
[2021-02-10 06:57] LABS: Basophils Absolute Auto 0.1 K/mm3 (0.0-0.1); Basophils Percent Auto 0.8 % (0.2-1.2); Eosinophils Absolute Auto 0.4 K/mm3 (0-0.3); Eosinophils Percent Auto 4.1 % (0-4.4); Hematocrit 31.3 % (37.0-47.0); Hemoglobin 9.8 g/dL (12.0-15.0); Immature Granulocyte Absolute 1.06 K/mm3 (0.00-0.031); Immature Granulocyte Percent A 10.8 % (0-0.5); Lymphocytes Absolute Auto 0.78 K/mm3 (0.9-3.2); Lymphocytes Percent Auto 7.9 % (18.3-44.2); Mean Corpuscular HGB Conc 31.3 g/dl (32-36); Mean Corpuscular Hemoglobin 29.6 pg (26-34); Mean Corpuscular Volume 94.6 fl (80-100); Mean Platelet Volume 10.1 fl (7.4-10.4); Monocytes Absolute Auto 0.7 K/mm3 (0.1-0.6); Neutrophils Absolute Auto 6.8 K/mm3 (1.3-6.7); Neutrophils Percent Auto 69.4 % (45.5-73.1); Platelet Count Result 461 k/mm3 (150-375); Red Blood Count 3.31 M/mm3 (4.2-5.4); Red Cell Distribution Width 14.1 % (11.5-14.5); White Blood Count 9.8 K/mm3 (4.5-10.0)
[2021-02-10 07:04] LABS: Alanine Aminotransferase 32 U/L (4-35); Albumin Level 3.2 g/dL (3.5-5.1); Alkaline Phosphatase 124 U/L (38-126); Anion Gap 10 mmol/L (8-16); Aspartate Amino Transferase 44 U/L (14-36); Bilirubin,Total 0.5 mg/dL (0.2-1.3); Blood Urea Nitrogen 16 mg/dL (7-17); Calcium 9.7 mg/dL (8.4-10.2); Carbon Dioxide 20 mmol/L (22-30); Chloride 103 mmol/L (98-107); Estimated CRCL calculation 26 ml/min; Estimated Glomerular Filt Rate 40; Glucose 130 mg/dL (65-110); Phosphorus 2.3 mg/dL (2.5-4.5); Potassium 3.5 mmol/L (3.4-5.0); Sodium 133 mmol/L (137-145)
[2021-02-10] MEDS: FENOFIBRATE 160 MG TABLET PO (08:08)
[2021-02-10] MEDS: EZETIMIBE 10 MG TABLET PO (08:08)
[2021-02-10] MEDS: LOSARTAN POTASSIUM 100 MG TABLET PO (08:08)
[2021-02-10] MEDS: TRIAMTERENE 37.5 MG/HCTZ 25 MG (MAXZIDE) TABLET 2 TAB PO (08:08)
[2021-02-10] MEDS: ENOXAPARIN 30 MG/0.3 ML SYRINGE SUB-Q (08:09)
[2021-02-10] MEDS: EUCERIN CREAM 120 GM JAR 1 APPLIC TOPICAL (08:09)
[2021-02-10] MEDS: allopurinoL 300 MG TABLET PO (08:09)
[2021-02-10 08:15] LABS: Glucose Point of Care 134 mg/dl (65-105)
--- NOTE | 2021-02-10 08:23 | PM.IMPN ---
Progress Note: A&P Assessment and Plan (1) Pilonidal sinus with abscess: Code(s): L05.02 - Pilonidal sinus with abscess Status: Acute Assessment and Plan: ED reported drainage of purulent from the sinus track CT abdomen does not reveal presence of sinus track POD #5-->s/p complex incision and drainage of perineal abscess measuring 5x4x10 cm with noted vaginal fistula Wound care IV vanc and cefepime GS following, recommendations appreciated culture wound if possible (2) Diabetes: Qualifiers: Diabetes mellitus complication status: without complication Diabetes mellitus filler leaf cutter long insulin use: without filler leaf cutter long use Diabetes mellitus type: type 2 Qualified Code(s): E11.9 - Type 2 diabetes mellitus without complications Code(s): E11.9 - Type 2 diabetes mellitus without complications Status: Chronic Assessment and Plan: hold metformin BG 90s-130s SSI, accuchecks Monitor (3) Chronic kidney disease: Qualifiers: Chronic kidney disease stage: unspecified stage Qualified Code(s): N18.9 - Chronic kidney disease, unspecified Code(s): N18.9 - Chronic kidney disease, unspecified Status: Acute Assessment and Plan: JAQUAN on Chronic kidney disease stage 3 gentle IV hydration hold diuretic and losartan Cr improving Continue IVF (4) Rectal cancer: Code(s): C20 - Malignant neoplasm of rectum Status: Resolved (5) Colorectal cancer: Code(s): C19 - Malignant neoplasm of rectosigmoid junction Status: Acute Assessment and Plan: Hx of rectal cancer status post colectomy and colostomy status in 2007 Seen by colorectal surgeon, at [place] (6) HTN (hypertension): Code(s): I10 - Essential (primary) hypertension Status: Acute Assessment and Plan: Hydralazine prn Continue home regimen Adjust if needed Monitor closely (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 - Other female genital tract fistulae Status: Acute Assessment and Plan: Will require vaginal reconstruction gs following, recommendations appreciated Urology consulted, recommends tertiary care center Spoke with [facility] colorectal surgeon, recommends f/u o/p with [facility] (8) Postoperative ileus: Code(s): K91.89 - Other postprocedural complications and disorders of digestive system; K56.7 - Ileus, unspecified Status: Acute Assessment and Plan: KUB-->Development of several moderately distended small bowel loops, ileus or possibly low-grade obstruction Advance to clears GS following Antiemetics Supportive care Time Spent With Patient Time with patient: less than 15 minutes Subjective Date/time seen: 02/10/21 08:23 doing well, no acute complaints ready to go to [facility] when ready Review of Systems Review of Systems: All systems reviewed & are unremarkable except as noted in HPI and below Exam Const: General: no acute distress Neck: Neck: no JVD Resp: Effort & Inspection: normal respiratory effort Auscultation: clear to auscultation bilaterally Cardio: Rate: regular rate Rhythm: regular rhythm GI: GI Palp: Yes Soft to palpation and No Tenderness to palpation present (GI) Objective Data Vital Signs Vital Signs: Vital Signs - 24 hr 02/09/21 12:00 02/09/21 16:00 02/09/21 20:00 Temperature 98.9 F 97.3 F L 97.2 F L Pulse Rate 94 76 76 Respiratory Rate 16 18 18 Blood Pressure 184/78 H 182/82 H 188/70 H Pulse Oximetry 98 99 99 02/10/21 00:00 02/10/21 06:00 Temperature 97.3 F L 96.6 F L Pulse Rate 73 76 Respiratory Rate 18 18 Blood Pressure 149/49 H 141/46 H Pulse Oximetry 98 98 Intake/Output Intake/Output: Intake & Output 02/07/21 02/08/21 02/09/21 02/10/21 23:59 23:59 23:59 23:59 Intake Total 3260 3410 3350 450 Output Total 2400 2500 1900 1300 Balance 687 260 9035 -850 Meds/Results Medications: Active Medications Generic Name Dose Route Start Last Admin Trade Name Juan
[2021-02-10 08:29] VITALS: BP 170/80; PULSE 74; RESP 16; TEMP 37.1; O2SAT 99
--- NOTE | 2021-02-10 11:18 | PCNWS ---
Weekly nutritional screen. Patient is tolerating current diet with adequate intake. No weight loss reported. No nutritional needs at this time.
[2021-02-10 12:01] LABS: Glucose Point of Care 111 mg/dl (65-105)
[2021-02-10 12:02] VITALS: BP 168/74; PULSE 72; RESP 18; TEMP 37.1; O2SAT 98
--- NOTE | 2021-02-10 15:03 | PCPTNOTE ---
Unable to see pt at this time. RN reports pt is getting a midline then possibly discharging to [facility] afterwards. Will check back later as schedule allows.
[2021-02-10 15:04] LABS: EDCOVIDSCREEN Negative (Negative)
[2021-02-10] MEDS: LIDOCAINE HCL 1% PF INJ 5 ML VIAL INFILTRATE (15:30)
--- NOTE | 2021-02-10 16:08 | PM.DS ---
DS: Admitting Diagnosis Discharge Date February 10 Admitting Diagnosis fever DS: Discharge Diagnosis Discharge Diagnosis (1) Osteomyelitis: Code(s): M86.9 - Osteomyelitis, unspecified Status: Acute (2) 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 - Other female genital tract fistulae Status: Acute (3) Pilonidal sinus with abscess: Code(s): L05.02 - Pilonidal sinus with abscess Status: Acute DS: Summary Hospital Course Hospital Course: patient is a 75-year-old lady with a chronic abscess in her sacral area, which intermittently gets infected and drains. Patient had APR in 2007 for rectal cancer. Approximately 2 days prior to admission, she had a fever at home of 103. Since then, she reports that a cyst in her back, has opened up and drained a large amount of pus and blood. Patient underwent incision and drainage in the OR on February 03 and she tolerated the procedure well. patient treated with empiric IV antibiotic therapy with vancomycin and cefepime beginning on February 04. There is palpation to the bone, and therefore patient should be treated for 6 weeks with IV antibiotics for vertebral osteomyelitis. we will treat empirically, with IV vancomycin and cefepime. Patient will need frequent labs, to ensure that her kidney function among other things is able to tolerate this lengthy antibiotic regimen. She should follow up with Primary Care, and General surgery as outpatient, as advised. Patient also noted to have vaginal fistula, which she says she has been told about before. General surgery and Urology both evaluated patient, and recommended tertiary care center for vaginal reconstruction. [facility] was contacted, and advised that she follow-up with the colorectal surgeon, as an outpatient, for evaluation and scheduling for a vaginal reconstruction procedure. we discussed this with the patient, and told her where to call and for what. Status at Discharge Functional status at discharge: uses cane/walker Overall status at discharge: patient is not back to baseline Time Spent with Patient Time attestation: Total time spent providing and/or coordinating discharge services: Time spent: Less than 30 minutes Exam Const: General: no acute distress Neck: Neck: no JVD Resp: Effort & Inspection: normal respiratory effort Auscultation: clear to auscultation bilaterally Cardio: Rate: regular rate Rhythm: regular rhythm GI: GI Palp: Yes Soft to palpation and No Tenderness to palpation present (GI) DS: Data Data Completed and Pending Labs on day of discharge: Labs from last 24 hours 02/10/21 02/10/21 02/10/21 14:39 11:21 08:06 WBC RBC Hgb Hct MCV MCH MCHC RDW Plt Count MPV Immature Gran % (Auto) Neut % (Auto) Lymph % (Auto) Bent % (Auto) Eos % (Auto) Baso % (Auto) Lymph # (Auto) Bent # (Auto) Eos # (Auto) Baso # (Auto) Abs Immat Gran (auto) Absolute Neuts (auto) Absolute Nucleated RBC Nucleated RBC % Sodium Potassium Chloride Carbon Dioxide Anion Gap BUN Creatinine Estim Creat Clear Calc Estimated GFR Glucose POC Capillary Glucose 111 H 134 H Calcium Phosphorus Magnesium Total Bilirubin AST ALT Alkaline Phosphatase Total Protein Albumin SARS-CoV-2 IgG/IgM Ag?Rapid Negative 02/10/21 02/10/21 02/09/21 06:15 06:15 20:57 WBC 9.8 RBC 3.31 L Hgb 9.8 L Hct 31.3 L MCV 94.6 MCH 29.6 MCHC 31.3 L RDW 14.1 Plt Count 461 H MPV 10.1 Immature Gran % (Auto) 10.8 H Neut % (Auto) 69.4 Lymph % (Auto) 7.9 L Bent % (Auto) 7.0 Eos % (Auto) 4.1 Baso % (Auto) 0.8 Lymph # (Auto) 0.78 L Bent # (Auto) 0.7 H Eos # (Auto) 0.4 H Baso # (Auto) 0.1 Abs Immat Gran (auto) 1.06 H Absolute Neuts (auto) 6.8 H Absolute Nucleated RBC 0.0 Nucleated RBC %
[2021-02-10] MEDS: hydrALAZINE HCL 20 MG/ML VIAL 10 MG IV PUSH (18:40)
[2021-02-10 18:42] VITALS: BP 186/90
[2021-02-10 18:51] LABS: Glucose Point of Care 149 mg/dl (65-105)
[2021-02-10 22:00] VITALS: BP 153/54; PULSE 77; RESP 18; TEMP 36.5; O2SAT 99
[2021-02-10 22:24] LABS: Glucose Point of Care 148 mg/dl (65-105)
[2021-02-11] MEDS: LACTATED RINGERS 1,000 ML 75 ML IV CONT ×2 (00:29→16:36)
[2021-02-11] MEDS: ACETAMINOPHEN 325 MG TABLET 650 MG PO (00:31)
[2021-02-11 06:00] VITALS: BP 163/43; PULSE 64; RESP 16; TEMP 36.6; O2SAT 99
[2021-02-11 06:49] LABS: Hematocrit 29.9 % (37.0-47.0); Hemoglobin 9.6 g/dL (12.0-15.0); Mean Corpuscular HGB Conc 32.1 g/dl (32-36); Mean Corpuscular Hemoglobin 30.9 pg (26-34); Mean Corpuscular Volume 96.1 fl (80-100); Mean Platelet Volume 10.1 fl (7.4-10.4); Platelet Count Result 431 k/mm3 (150-375); Red Blood Count 3.11 M/mm3 (4.2-5.4); Red Cell Distribution Width 14.5 % (11.5-14.5); White Blood Count 9.2 K/mm3 (4.5-10.0)
[2021-02-11 07:04] LABS: Alanine Aminotransferase 38 U/L (4-35); Albumin Level 3.5 g/dL (3.5-5.1); Alkaline Phosphatase 120 U/L (38-126); Anion Gap 7 mmol/L (8-16); Aspartate Amino Transferase 51 U/L (14-36); Bilirubin,Total 0.5 mg/dL (0.2-1.3); Blood Urea Nitrogen 18 mg/dL (7-17); Calcium 9.8 mg/dL (8.4-10.2); Carbon Dioxide 24 mmol/L (22-30); Chloride 102 mmol/L (98-107); Estimated CRCL calculation 26 ml/min; Estimated Glomerular Filt Rate 40; Glucose 115 mg/dL (65-110); Magnesium 1.8 mg/dL (1.6-2.3); Phosphorus 2.4 mg/dL (2.5-4.5); Potassium 3.8 mmol/L (3.4-5.0); Sodium 133 mmol/L (137-145)
--- NOTE | 2021-02-11 08:12 | PM.IMPN ---
Progress Note: A&P Assessment and Plan (1) Pilonidal sinus with abscess: Code(s): L05.02 - Pilonidal sinus with abscess Status: Acute Assessment and Plan: ED reported drainage of purulent from the sinus track CT abdomen does not reveal presence of sinus track POD #6-->s/p complex incision and drainage of perineal abscess measuring 5x4x10 cm with noted vaginal fistula Wound care IV vanc and cefepime GS following, recommendations appreciated culture wound if possible (2) Diabetes: Qualifiers: Diabetes mellitus complication status: without complication Diabetes mellitus termite helper insulin use: without termite helper use Diabetes mellitus type: type 2 Qualified Code(s): E11.9 - Type 2 diabetes mellitus without complications Code(s): E11.9 - Type 2 diabetes mellitus without complications Status: Chronic Assessment and Plan: hold metformin BG 90s-130s SSI, accuchecks Monitor (3) Chronic kidney disease: Qualifiers: Chronic kidney disease stage: unspecified stage Qualified Code(s): N18.9 - Chronic kidney disease, unspecified Code(s): N18.9 - Chronic kidney disease, unspecified Status: Acute Assessment and Plan: JAQUAN on Chronic kidney disease stage 3 gentle IV hydration hold diuretic and losartan Cr improving Continue IVF (4) Rectal cancer: Code(s): C20 - Malignant neoplasm of rectum Status: Resolved (5) Colorectal cancer: Code(s): C19 - Malignant neoplasm of rectosigmoid junction Status: Acute Assessment and Plan: Hx of rectal cancer status post colectomy and colostomy status in 2007 Seen by colorectal surgeon, at [place] (6) HTN (hypertension): Code(s): I10 - Essential (primary) hypertension Status: Acute Assessment and Plan: Hydralazine prn Continue home regimen Adjust if needed Monitor closely (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 (8) Postoperative ileus: Code(s): K91.89 - Other postprocedural complications and disorders of digestive system; K56.7 - Ileus, unspecified Status: Acute Assessment and Plan: KUB-->Development of several moderately distended small bowel loops, ileus or possibly low-grade obstruction Advance to clears GS following Antiemetics Supportive care Additional Plan will discuss with IR & surgery regarding possibilites of long-term access - may need port-a-cath or tunneled catheter for the time being, peripheral IV sufficient to keep vanc & cefepime going Subjective Date/time seen: 02/11/21 08:12 resting comfortably in bed Review of Systems Review of Systems: All systems reviewed & are unremarkable except as noted in HPI and below Exam Const: General: no acute distress Neck: Neck: no JVD Resp: Effort & Inspection: normal respiratory effort Auscultation: clear to auscultation bilaterally Cardio: Rate: regular rate Rhythm: regular rhythm GI: GI Palp: Yes Soft to palpation and No Tenderness to palpation present (GI) Objective Data Vital Signs Vital Signs: Vital Signs - 24 hr 02/10/21 08:29 02/10/21 12:02 02/10/21 18:42 Temperature 98.7 F 98.7 F Pulse Rate 74 72 Respiratory Rate 16 18 Blood Pressure 170/80 H 168/74 H 186/90 H Pulse Oximetry 99 98 02/10/21 22:00 02/11/21 06:00 Temperature 97.7 F 97.8 F Pulse Rate 77 64 Respiratory Rate 18 16 Blood Pressure 153/54 H 163/43 H Pulse Oximetry 99 99 Intake/Output Intake/Output: Intake & Output 02/08/21 02/09/21 02/10/21 02/11/21 23:59 23:59 23:59 23:59 Intake Total 3410 3350 2770 250 Output Total 2500 1900 2050 300 Balance 910 1450 720 -50 Meds/Results Medications: Acti
[2021-02-11] MEDS: ONDANSETRON INJ 4 MG/2 ML VIAL IV PUSH (08:28)
[2021-02-11 08:31] LABS: Glucose Point of Care 120 mg/dl (65-105)
[2021-02-11] MEDS: FENOFIBRATE 160 MG TABLET PO (08:59)
[2021-02-11] MEDS: LOSARTAN POTASSIUM 100 MG TABLET PO (08:59)
[2021-02-11] MEDS: TRIAMTERENE 37.5 MG/HCTZ 25 MG (MAXZIDE) TABLET 2 TAB PO (08:59)
[2021-02-11] MEDS: EZETIMIBE 10 MG TABLET PO (08:59)
[2021-02-11] MEDS: allopurinoL 300 MG TABLET PO (08:59)
[2021-02-11] MEDS: EUCERIN CREAM 120 GM JAR 1 APPLIC TOPICAL (09:00)
[2021-02-11] MEDS: ENOXAPARIN 30 MG/0.3 ML SYRINGE SUB-Q (09:00)
[2021-02-11 10:32] LABS: Band Neutrophils Percent 3 % (0-6); Eosinophils Absolute Manual 0.55 K/mm3 (0.02-0.5); Eosinophils Percent Manual 6 % (0-4); Lymphocytes Absolute Manual 0.64 K/mm3 (1.1-4.5); Monocytes Absolute Manual 0.27 K/mm3 (0.1-0.90); Monocytes Percent Manual 3 % (3-9); Neutrophils Absolute Manual 7.72 K/mm3 (1.7-7.2); Neutrophils Percent Manual 81 % (46-73); Platelet Estimate Adequate (Adequate); Total Cells Counted 100
[2021-02-11 10:33] LABS: Hypochromasia 1+ (NORMAL)
[2021-02-11 11:29] LABS: Glucose Point of Care 124 mg/dl (65-105)
[2021-02-11 12:41] VITALS: O2SAT 98
[2021-02-11 14:00] VITALS: BP 173/70; PULSE 84; RESP 18; TEMP 37; O2SAT 98
[2021-02-11] MEDS: hydrALAZINE HCL 20 MG/ML VIAL 10 MG IV PUSH (15:17)
[2021-02-11 16:42] VITALS: BP 150/50
[2021-02-11 17:19] LABS: Glucose Point of Care 114 mg/dl (65-105)
[2021-02-11 20:00] VITALS: PULSE 84; RESP 18; O2SAT 98
[2021-02-11 22:00] VITALS: BP 154/52; PULSE 75; RESP 18; TEMP 37; O2SAT 99
[2021-02-11 22:57] LABS: Glucose Point of Care 117 mg/dl (65-105)
[2021-02-12] MEDS: HYDROcodone/acetaminophen (*CRX) 5-325 MG TABLET 2 TAB PO (00:35)
[2021-02-12] MEDS: MORPHINE SULFATE (*CRX) 4 MG/ML INJ IV PUSH (02:32)
[2021-02-12] MEDS: FAMOTIDINE 20 MG/2 ML VIAL IV PUSH (03:48)
[2021-02-12 05:56] VITALS: BP 138/49; PULSE 62; RESP 18; TEMP 36.6; O2SAT 100
[2021-02-12] MEDS: LACTATED RINGERS 1,000 ML 75 ML IV CONT ×2 (06:00→20:20)
[2021-02-12 08:20] LABS: Hematocrit 29.8 % (37.0-47.0); Hemoglobin 9.2 g/dL (12.0-15.0); Mean Corpuscular HGB Conc 30.9 g/dl (32-36); Mean Corpuscular Hemoglobin 30.6 pg (26-34); Platelet Count Result 401 k/mm3 (150-375); Red Blood Count 3.01 M/mm3 (4.2-5.4); Red Cell Distribution Width 14.8 % (11.5-14.5)
--- NOTE | 2021-02-12 08:33 | PM.IMPN ---
Progress Note: A&P Assessment and Plan (1) Pilonidal sinus with abscess: Code(s): L05.02 - Pilonidal sinus with abscess Status: Acute Assessment and Plan: ED reported drainage of purulent from the sinus track CT abdomen does not reveal presence of sinus track Wound care IV vanc and cefepime GS following, recommendations appreciated culture wound if possible (2) Diabetes: Qualifiers: Diabetes mellitus complication status: without complication Diabetes mellitus rat exterminator insulin use: without rat exterminator use Diabetes mellitus type: type 2 Qualified Code(s): E11.9 - Type 2 diabetes mellitus without complications Code(s): E11.9 - Type 2 diabetes mellitus without complications Status: Chronic Assessment and Plan: hold metformin BG 90s-130s SSI, accuchecks Monitor (3) Chronic kidney disease: Qualifiers: Chronic kidney disease stage: unspecified stage Qualified Code(s): N18.9 - Chronic kidney disease, unspecified Code(s): N18.9 - Chronic kidney disease, unspecified Status: Acute Assessment and Plan: JAQUAN on Chronic kidney disease stage 3 gentle IV hydration hold diuretic and losartan Cr improving Continue IVF (4) Rectal cancer: Code(s): C20 - Malignant neoplasm of rectum Status: Resolved (5) Colorectal cancer: Code(s): C19 - Malignant neoplasm of rectosigmoid junction Status: Acute Assessment and Plan: Hx of rectal cancer status post colectomy and colostomy status in 2007 Seen by colorectal surgeon, at [place] (6) HTN (hypertension): Code(s): I10 - Essential (primary) hypertension Status: Acute Assessment and Plan: Hydralazine prn Continue home regimen Adjust if needed Monitor closely (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 - Other female genital tract fistulae Status: Acute Assessment and Plan: Will require vaginal reconstruction gs following, recommendations appreciated Urology consulted, recommends tertiary care center Spoke with [facility] colorectal surgeon, recommends f/u o/p with [facility] (8) Postoperative ileus: Code(s): K91.89 - Other postprocedural complications and disorders of digestive system; K56.7 - Ileus, unspecified Status: Acute Assessment and Plan: KUB-->Development of several moderately distended small bowel loops, ileus or possibly low-grade obstruction Advance to clears GS following Antiemetics Supportive care Additional Plan probably need surgical consult for access will call daughter to discuss this anatomic anomaly and the problem we are facing Time Spent With Patient Time with patient: less than 15 minutes Subjective Date/time seen: 02/12/21 08:33 no acute complaints Review of Systems Review of Systems: All systems reviewed & are unremarkable except as noted in HPI and below Exam Const: General: no acute distress Neck: Neck: no JVD Resp: Effort & Inspection: normal respiratory effort Auscultation: clear to auscultation bilaterally Cardio: Rate: regular rate Rhythm: regular rhythm GI: GI Palp: Yes Soft to palpation and No Tenderness to palpation present (GI) Objective Data Vital Signs Vital Signs: Vital Signs - 24 hr 02/11/21 12:41 02/11/21 14:00 02/11/21 16:42 Temperature 98.6 F Pulse Rate 84 Respiratory Rate 18 Blood Pressure 173/70 H 150/50 H Pulse Oximetry 98 98 02/11/21 20:00 02/11/21 22:00 02/12/21 05:56 Temperature 98.6 F 97.8 F Pulse Rate 84 75 62 Respiratory Rate 18 18 18 Blood Pressure 154/52 H 138/49 L Pulse Oximetry 98 99 100 Intake/Output Intake/Output: Intake & Output 02/09/21 02/10/21 02/11/21 02/12/21 23:59 23:59 23:59 23:59 Intake Total 3350 2770 2480 250 Output Total 1900 2050 300 Balance 5030 062 4053 250 Meds/Results Medications: Active Medications Generic Name Dose Route Start Last Admin Trade Name Freq PRN Reason Stop Dose Admin Acetami
[2021-02-12 08:37] LABS: Alanine Aminotransferase 35 U/L (4-35); Albumin Level 3.3 g/dL (3.5-5.1); Alkaline Phosphatase 107 U/L (38-126); Anion Gap 9 mmol/L (8-16); Aspartate Amino Transferase 44 U/L (14-36); Bilirubin,Total 0.5 mg/dL (0.2-1.3); Blood Urea Nitrogen 18 mg/dL (7-17); Calcium 9.6 mg/dL (8.4-10.2); Carbon Dioxide 23 mmol/L (22-30); Chloride 102 mmol/L (98-107); Estimated CRCL calculation 24 ml/min; Estimated Glomerular Filt Rate 37; Glucose 128 mg/dL (65-110); Magnesium 1.6 mg/dL (1.6-2.3); Phosphorus 2.8 mg/dL (2.5-4.5); Potassium 3.7 mmol/L (3.4-5.0); Sodium 134 mmol/L (137-145)
[2021-02-12 08:46] LABS: Glucose Point of Care 126 mg/dl (65-105)
[2021-02-12] MEDS: FENOFIBRATE 160 MG TABLET PO (08:57)
[2021-02-12] MEDS: allopurinoL 300 MG TABLET PO (08:57)
[2021-02-12] MEDS: ENOXAPARIN 30 MG/0.3 ML SYRINGE SUB-Q (08:57)
[2021-02-12] MEDS: LOSARTAN POTASSIUM 100 MG TABLET PO (08:57)
[2021-02-12] MEDS: EZETIMIBE 10 MG TABLET PO (08:57)
[2021-02-12] MEDS: TRIAMTERENE 37.5 MG/HCTZ 25 MG (MAXZIDE) TABLET 2 TAB PO (08:57)
[2021-02-12] MEDS: EUCERIN CREAM 120 GM JAR 1 APPLIC TOPICAL (08:58)
[2021-02-12 09:39] LABS: Band Neutrophils Percent 5 % (0-6); Eosinophils Percent Manual 5 % (0-4); Lymphocytes Absolute Manual 0.56 K/mm3 (1.1-4.5); Metamyelocytes Percent 3 %; Monocytes Absolute Manual 0.24 K/mm3 (0.1-0.90); Monocytes Percent Manual 3 % (3-9); Myelocytes Percent 1 %; Neutrophils Absolute Manual 6.48 K/mm3 (1.7-7.2); Neutrophils Percent Manual 76 % (46-73); Total Cells Counted 100
[2021-02-12 09:40] LABS: Hypochromasia 1+ (NORMAL); Platelet Estimate Increased (Adequate)
[2021-02-12 11:33] LABS: Glucose Point of Care 118 mg/dl (65-105)
[2021-02-12 13:51] LABS: Vancomycin Trough 12.2 ug/mL (10.0-20.0)
[2021-02-12 14:00] VITALS: BP 143/50; PULSE 72; RESP 20; TEMP 36.9; O2SAT 98
[2021-02-12 16:56] LABS: Glucose Point of Care 131 mg/dl (65-105)
[2021-02-12 20:00] VITALS: PULSE 76; RESP 18; O2SAT 99
[2021-02-12] MEDS: LINEZOLID 600 MG/300 ML 600 MG/300 ML SOLN 300 MG IVPB (20:17)
[2021-02-12] MEDS: HYDROcodone/acetaminophen (*CRX) 5-325 MG TABLET 1 TAB PO (20:44)
[2021-02-12 21:08] LABS: Glucose Point of Care 169 mg/dl (65-105)
[2021-02-12 21:41] VITALS: BP 149/48; PULSE 76; RESP 18; TEMP 36.7; O2SAT 99
[2021-02-13 05:50] VITALS: BP 150/64; PULSE 65; RESP 18; TEMP 36.4; O2SAT 100
[2021-02-13 06:42] LABS: Basophils Percent Auto 0.4 % (0.2-1.2); Eosinophils Absolute Auto 0.4 K/mm3 (0-0.3); Hematocrit 27.6 % (37.0-47.0); Hemoglobin 8.7 g/dL (12.0-15.0); Immature Granulocyte Absolute 0.48 K/mm3 (0.00-0.031); Immature Granulocyte Percent A 5.4 % (0-0.5); Lymphocytes Absolute Auto 1.05 K/mm3 (0.9-3.2); Lymphocytes Percent Auto 11.7 % (18.3-44.2); Mean Corpuscular HGB Conc 31.5 g/dl (32-36); Mean Corpuscular Hemoglobin 30.7 pg (26-34); Mean Corpuscular Volume 97.5 fl (80-100); Mean Platelet Volume 10.2 fl (7.4-10.4); Monocytes Absolute Auto 0.7 K/mm3 (0.1-0.6); Monocytes Percent Auto 7.9 % (2.6-8.5); Neutrophils Absolute Auto 6.3 K/mm3 (1.3-6.7); Neutrophils Percent Auto 70.6 % (45.5-73.1); Platelet Count Result 383 k/mm3 (150-375); Red Blood Count 2.83 M/mm3 (4.2-5.4); Red Cell Distribution Width 14.8 % (11.5-14.5); White Blood Count 8.9 K/mm3 (4.5-10.0)
[2021-02-13 06:52] LABS: Alanine Aminotransferase 31 U/L (4-35); Albumin Level 3.2 g/dL (3.5-5.1); Alkaline Phosphatase 92 U/L (38-126); Anion Gap 7 mmol/L (8-16); Aspartate Amino Transferase 34 U/L (14-36); Bilirubin,Total 0.4 mg/dL (0.2-1.3); Blood Urea Nitrogen 24 mg/dL (7-17); Calcium 9.5 mg/dL (8.4-10.2); Carbon Dioxide 24 mmol/L (22-30); Chloride 102 mmol/L (98-107); Estimated CRCL calculation 22 ml/min; Estimated Glomerular Filt Rate 34; Glucose 121 mg/dL (65-110); Magnesium 1.5 mg/dL (1.6-2.3); Phosphorus 2.7 mg/dL (2.5-4.5); Potassium 3.9 mmol/L (3.4-5.0); Sodium 133 mmol/L (137-145)
[2021-02-13 07:40] LABS: Hypochromasia 1+ (NORMAL)
[2021-02-13 08:00] VITALS: O2SAT 100
[2021-02-13 08:00] LABS: Glucose Point of Care 115 mg/dl (65-105)
--- NOTE | 2021-02-13 08:38 | PM.IMPN ---
Progress Note: A&P Assessment and Plan (1) Pilonidal sinus with abscess: Code(s): L05.02 - Pilonidal sinus with abscess Status: Acute Assessment and Plan: ED reported drainage of purulent from the sinus track CT abdomen does not reveal presence of sinus track Wound care GS following, recommendations appreciated (2) Diabetes: Qualifiers: Diabetes mellitus complication status: without complication Diabetes mellitus senior living insulin use: without senior living use Diabetes mellitus type: type 2 Qualified Code(s): E11.9 - Type 2 diabetes mellitus without complications Code(s): E11.9 - Type 2 diabetes mellitus without complications Status: Chronic Assessment and Plan: hold metformin BG 90s-130s SSI, accuchecks Monitor (3) Chronic kidney disease: Qualifiers: Chronic kidney disease stage: unspecified stage Qualified Code(s): N18.9 - Chronic kidney disease, unspecified Code(s): N18.9 - Chronic kidney disease, unspecified Status: Acute Assessment and Plan: JAQUAN on Chronic kidney disease stage 3 gentle IV hydration hold diuretic and losartan Cr improving Continue IVF (4) Rectal cancer: Code(s): C20 - Malignant neoplasm of rectum Status: Resolved (5) Colorectal cancer: Code(s): C19 - Malignant neoplasm of rectosigmoid junction Status: Acute Assessment and Plan: Hx of rectal cancer status post colectomy and colostomy status in 2007 Seen by colorectal surgeon, at [place] (6) HTN (hypertension): Code(s): I10 - Essential (primary) hypertension Status: Acute Assessment and Plan: Hydralazine prn Continue home regimen Adjust if needed Monitor closely (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 - unable to provide provider that can obtain lower extremity PICC - spoke to ID, standard of care is IV abx 6 wks, would prefer to do this over po abx if possible - options include tunneled cath, [place] among others as recommended by surgical service Time Spent With Patient Time with patient: less than 15 minutes Subjective Date/time seen: 02/13/21 08:38 resting comfortably Review of Systems Review of Systems: All systems reviewed & are unremarkable except as noted in HPI and below Exam Const: General: no acute distress Neck: Neck: no JVD Resp: Effort & Inspection: normal respiratory effort Auscultation: clear to auscultation bilaterally Cardio: Rate: regular rate Rhythm: regular rhythm GI: GI Palp: Yes Soft to palpation and No Tenderness to palpation present (GI) Objective Data Vital Signs Vital Signs: Vital Signs - 24 hr 02/12/21 14:00 02/12/21 20:00 02/12/21 21:41 Temperature 98.4 F 98.1 F Pulse Rate 72 76 76 Respiratory Rate 20 18 18 Blood Pressure 143/50 H 149/48 H Pulse Oximetry 98 99 99 02/13/21 05:50 Temperature 97.6 F Pulse Rate 65 Respiratory Rate 18 Blood Pressure 150/64 H Pulse Oximetry 100 Intake/Output Intake/Output: Intake & Output 02/10/21 02/11/21 02/12/21 02/13/21 23:59 23:59 23:59 23:59 Intake Total 2930 8710 3050 3
[2021-02-13] MEDS: LINEZOLID 600 MG/300 ML 600 MG/300 ML SOLN 300 MG IVPB ×2 (08:50→20:26)
[2021-02-13] MEDS: ENOXAPARIN 30 MG/0.3 ML SYRINGE SUB-Q (08:54)
[2021-02-13] MEDS: EZETIMIBE 10 MG TABLET PO (08:55)
[2021-02-13] MEDS: allopurinoL 300 MG TABLET PO (08:55)
[2021-02-13] MEDS: TRIAMTERENE 37.5 MG/HCTZ 25 MG (MAXZIDE) TABLET 2 TAB PO (08:55)
[2021-02-13] MEDS: FENOFIBRATE 160 MG TABLET PO (08:55)
[2021-02-13] MEDS: LOSARTAN POTASSIUM 100 MG TABLET PO (08:55)
[2021-02-13] MEDS: EUCERIN CREAM 120 GM JAR 1 APPLIC TOPICAL (09:00)
--- NOTE | 2021-02-13 09:32 | PC.NURSE ---
Addendum entered by Carmen Adams RN 02/13/21 09:34: I receved a call from the consulting surgeon regarding the need for IV access problems due to vascular issues on pt; he stated that he was the surgeon who performed her surgery, that she should be on PO antibiotics, that she was not emergent, and that she should be transferred to [place]; he concluded that he would address this issue tomorrow Original Note: I receved a call from the consulting surgeon regarding the need for IV access problems due to vascular issues on pt
[2021-02-13] MEDS: LACTATED RINGERS 1,000 ML 75 ML IV CONT (11:17)
[2021-02-13 12:07] LABS: Glucose Point of Care 103 mg/dl (65-105)
[2021-02-13 14:00] VITALS: BP 150/56; PULSE 77; RESP 16; TEMP 36.9; O2SAT 100
[2021-02-13 17:07] LABS: Glucose Point of Care 118 mg/dl (65-105)
[2021-02-13 20:00] VITALS: PULSE 61; RESP 16; O2SAT 99
[2021-02-13] MEDS: ACETAMINOPHEN 325 MG TABLET 650 MG PO (20:48)
[2021-02-13] MEDS: hydrALAZINE HCL 20 MG/ML VIAL 10 MG IV PUSH (21:51)
[2021-02-13 22:00] VITALS: BP 181/67; PULSE 61; RESP 16; TEMP 36.4; O2SAT 99
[2021-02-13 22:05] VITALS: BP 166/66
[2021-02-14 05:30] LABS: Glucose Point of Care 134 mg/dl (65-105)
[2021-02-14 06:00] VITALS: BP 171/58; PULSE 67; RESP 16; TEMP 36.3; O2SAT 98
[2021-02-14 06:24] LABS: Basophils Percent Auto 0.5 % (0.2-1.2); Eosinophils Absolute Auto 0.4 K/mm3 (0-0.3); Eosinophils Percent Auto 4.7 % (0-4.4); Hematocrit 27.7 % (37.0-47.0); Hemoglobin 8.7 g/dL (12.0-15.0); Immature Granulocyte Absolute 0.33 K/mm3 (0.00-0.031); Immature Granulocyte Percent A 4.1 % (0-0.5); Lymphocytes Absolute Auto 0.84 K/mm3 (0.9-3.2); Lymphocytes Percent Auto 10.3 % (18.3-44.2); Mean Corpuscular HGB Conc 31.4 g/dl (32-36); Mean Corpuscular Hemoglobin 30.3 pg (26-34); Mean Corpuscular Volume 96.5 fl (80-100); Mean Platelet Volume 10.4 fl (7.4-10.4); Monocytes Absolute Auto 0.7 K/mm3 (0.1-0.6); Monocytes Percent Auto 8.1 % (2.6-8.5); Neutrophils Absolute Auto 5.9 K/mm3 (1.3-6.7); Neutrophils Percent Auto 72.3 % (45.5-73.1); Platelet Count Result 402 k/mm3 (150-375); Red Blood Count 2.87 M/mm3 (4.2-5.4); White Blood Count 8.1 K/mm3 (4.5-10.0)
[2021-02-14] MEDS: hydrALAZINE HCL 20 MG/ML VIAL 10 MG IV PUSH ×2 (06:39→13:32)
[2021-02-14 06:40] LABS: Alanine Aminotransferase 27 U/L (4-35); Albumin Level 3.3 g/dL (3.5-5.1); Alkaline Phosphatase 90 U/L (38-126); Anion Gap 7 mmol/L (8-16); Aspartate Amino Transferase 39 U/L (14-36); Bilirubin,Total 0.3 mg/dL (0.2-1.3); Blood Urea Nitrogen 19 mg/dL (7-17); Calcium 9.7 mg/dL (8.4-10.2); Carbon Dioxide 24 mmol/L (22-30); Chloride 101 mmol/L (98-107); Estimated CRCL calculation 22 ml/min; Estimated Glomerular Filt Rate 34; Glucose 122 mg/dL (65-110); Magnesium 1.4 mg/dL (1.6-2.3); Phosphorus 2.4 mg/dL (2.5-4.5); Potassium 3.9 mmol/L (3.4-5.0); Sodium 132 mmol/L (137-145)
[2021-02-14 08:08] LABS: Glucose Point of Care 161 mg/dl (65-105)
[2021-02-14] MEDS: EZETIMIBE 10 MG TABLET PO (08:54)
[2021-02-14] MEDS: allopurinoL 300 MG TABLET PO (08:54)
[2021-02-14] MEDS: LOSARTAN POTASSIUM 100 MG TABLET PO (08:54)
[2021-02-14] MEDS: FENOFIBRATE 160 MG TABLET PO (08:54)
[2021-02-14] MEDS: EUCERIN CREAM 120 GM JAR 1 APPLIC TOPICAL (08:54)
[2021-02-14] MEDS: ENOXAPARIN 30 MG/0.3 ML SYRINGE SUB-Q (08:54)
[2021-02-14] MEDS: TRIAMTERENE 37.5 MG/HCTZ 25 MG (MAXZIDE) TABLET 2 TAB PO (08:54)
[2021-02-14] MEDS: LINEZOLID 600 MG/300 ML 600 MG/300 ML SOLN 300 MG IVPB (09:03)
[2021-02-14] MEDS: MAGNESIUM SULF 2 GM/WATER 50ML 2 GM/50 ML BAG IVPB (10:21)
[2021-02-14 10:29] VITALS: PULSE 80
[2021-02-14] MEDS: amLODIPine BESYLATE 5 MG TABLET 10 MG PO (10:29)
[2021-02-14] MEDS: METOPROLOL TARTRATE 25 MG TABLET PO (10:29)
--- NOTE | 2021-02-14 11:05 | PM.PNGS ---
Progress Note: A&P Assessment and Plan (1) Abscess, perineum: Code(s): L02.215 - Cutaneous abscess of perineum Status: Acute Assessment and Plan: Patient continues to do well post-operatively. Abscess adequately drained. Continue local wound care with saline soaked gauze packing twice daily. Okay from our standpoint to stop antibiotics and discharge the patient when okay with other services. Plan is for d/c to [facility] ([facility]). She needs to f/u with colorectal at [place] as an outpatient due to vaginal fistula. Pt aware. (2) 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 - Other female genital tract fistulae Status: Acute Additional Plan I have discussed the patient's case and plan of care with Dr. Shelton. Subjective Subjective Date/Time Seen: 02/14/21 11:05 Post Op day: 11 Patient reports: tolerating a regular diet, bowel movement and afebrile Interval history: 75 yo F who presented with a perineal abscess that was taken to the OR for I&D on 02/03/21 and found to have a vaginal fistula. She is now seen on the medical floor. She reports having some nausea and generalized weakness today that has been off and on over the weekend. No other complaints. No perineal pain. Tolerating dressing changes without any issues. Review of Systems Review of Systems: All systems reviewed & are unremarkable except as noted in HPI and below Exam Const: General: comfortable and no acute distress Orientation/consciousness: patient oriented x3 Skin: Other: Perineal dressing clean,dry, intact Neuro: General: moves all extremities and no focal motor deficits Extrem: General: no clubbing, cyanosis or edema Psych: Mental Status: mental status grossly normal Insight: Good insight present (Psych) Judgement: Good judgement present (Psych) Objective Data Vital Signs Vital Signs: Vital Signs - 24 hr 02/13/21 14:00 02/13/21 20:00 02/13/21 22:00 Temperature 98.4 F 97.5 F L Pulse Rate 77 61 61 Respiratory Rate 16 16 16 Blood Pressure 150/56 H 181/67 H Pulse Oximetry 100 99 99 02/13/21 22:05 02/14/21 06:00 02/14/21 10:29 Temperature 97.4 F L Pulse Rate 67 80 Respiratory Rate 16 Blood Pressure 166/66 H 171/58 H Pulse Oximetry 98 Intake/Output Intake/Output: Intake & Output 02/11/21 02/12/21 02/13/21 02/14/21 23:59 23:59 23:59 23:59 Intake Total 2480 3370 4460 740 Output Total 300 1900 1500 Balance 2180 3370 2560 -760 Meds/Results Medications: Active Medications Generic Name Dose Route Start Last Admin Trade Name Freq PRN Reason Stop Dose Admin Acetaminophen 650 mg 02/03/21 01:55 02/13/21 20:48 Acetaminophen 325 Mg Tablet PO 650 mg Q4H PRN Administration Mild Pain (1-3) or Fever Hydrocodone Bitart/Acetaminophen 1 tab 02/04/21 10:07 02/12/21 20:44 Hydrocodone/Acetaminophen (*Crx) 5-325 Mg Tablet PO 1 tab Q6H PRN Administration Pain Rated 4-6 Hydrocodone Bitart/Acetaminophen 2 tab 02/04/21 10:07 02/12/21 00:35 Hydrocodone/Acetaminophen (*Crx) 5-325 Mg Tablet PO 2 tab Q6H PRN Administration Pain 7-10 Allopurinol 300 mg 02/03/21 08:00 02/14/21 08:54 Allopurinol 300 Mg Tablet PO 300 mg DAILY@0800 JOANN Administration Amlodipine Besylate 10 mg 02/14/21 10:15 02/14/21 10:29 Amlodipine Besylate 5 Mg Tablet PO 10 mg DAILY JOANN Administration Dextrose 12.5 gm 02/03/21 06:05 Dextrose 50% 25 Gm/50 Ml Syringe IV PUSH PRN PRN Hypoglycemia Protocol Ezetimibe 10 mg 02/03/21 09:00 02/14/21 08:54 Ezetimibe 10 Mg Tablet PO 10 mg DAILY JOANN Administration Enoxaparin Sodium 30 mg 02/03/21 09:00 02/14/21 08:54 Enoxaparin 30 Mg/0.3 Ml Syringe SUB-Q 30 mg DAILY JOANN Administration Fenofibrate 160 mg 02/03/21 09:00 02/14/21 08:54 Fenofibrate 160 Mg Tablet PO 160 mg DAILY JOANN Administration Glucagon 1 mg 02/03/21 06:05 Glucagon For Inj 1 Mg Vial IM PRN PRN Hypoglycemia
[2021-02-14] MEDS: ONDANSETRON INJ 4 MG/2 ML VIAL IV PUSH (11:35)
[2021-02-14 11:41] VITALS: BP 168/57; PULSE 90; RESP 20; TEMP 36.2; O2SAT 97
[2021-02-14 12:16] LABS: Glucose Point of Care 113 mg/dl (65-105)
[2021-02-14 13:28] VITALS: BP 162/68
--- NOTE | 2021-02-14 13:44 | PM.DS ---
DS: Admitting Diagnosis Discharge Date 02/14/21 Admitting Diagnosis Pilonidal abscess DS: Discharge Diagnosis Discharge Diagnosis (1) Pilonidal sinus with abscess: Code(s): L05.02 - Pilonidal sinus with abscess Status: Acute (2) Diabetes: Qualifiers: Diabetes mellitus type: type 2 Diabetes mellitus mcc insulin use: without termite exterminator use Diabetes mellitus complication status: without complication Qualified Code(s): E11.9 - Type 2 diabetes mellitus without complications Code(s): E11.9 - Type 2 diabetes mellitus without complications Status: Chronic (3) Chronic kidney disease: Qualifiers: Chronic kidney disease stage: unspecified stage Qualified Code(s): N18.9 - Chronic kidney disease, unspecified Code(s): N18.9 - Chronic kidney disease, unspecified Status: Acute (4) Rectal cancer: Code(s): C20 - Malignant neoplasm of rectum Status: Resolved (5) Colorectal cancer: Code(s): C19 - Malignant neoplasm of rectosigmoid junction Status: Acute Assessment and Plan: Hx of rectal cancer status post colectomy and colostomy status in 2007 Seen by colorectal surgeon, at [place] (6) HTN (hypertension): Code(s): I10 - Essential (primary) hypertension Status: Acute (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 Pt okay with this plan (8) Postoperative ileus: Code(s): K91.89 - Other postprocedural complications and disorders of digestive system; K56.7 - Ileus, unspecified Status: Acute DS: Summary Hospital Course Hospital Course: Date of service 02/14/2021 Patient is a 75-year-old female with a past medical history of hypertension, diabetes, and colorectal cancer who presented emergency room on 02/12/2021 for fever and a boil on her back. Vitals in the ER were temperature 38.1? C, pulse 110, respiratory rate 20, blood pressure 154/63, pulse ox 97 room air. Initial white blood cell count 19.0, hemoglobin 11.3, hematocrit 35.0, platelets 94. BMP showed a sodium 128, potassium 4.4, chloride 97, CO2 19, BUN 44, creatinine 1.6, glucose 167. Lactic acid normal. CRP elevated 34.7. Chest x-ray negative. UA slightly suspicious for UTI but urine culture was negative. CT of the abdomen pelvis showed sacral decubitus ulcer with no evidence of osteomyelitis. Patient was admitted to the hospitalist service and started on antibiotics. Surgery was consulted and the patient underwent a complex incision and drainage of a perianal abscess measuring 5 x 4 x 10 cm with noted vaginal fistula on 02/03/2021. Patient improved after the surgery and with antibiotics. As for her vaginal fistula, she is to follow up with the colorectal surgeon at [place] that she has seen in the past. She did her heart is liver by for unclear reasons, could be due to infection. CT of the abdomen pelvis did not show any abnormalities to her liver. She did have gallstones but no signs of acute choledocholithiasis or acute cholecystitis. She had no discharge at the vagina on the day of discharge. She did have a postop ileus that extended her stay that resolved on its own. No surgical cultures were done but the patient improved with the above treatment. Her stay was prolonged due to some confusion with her diagnosis or and it was thought she may need IV antibiotics for 6 weeks. There is actually no evidence of osteomyelitis per surgery and I spoke with Dr. Rowe as well. Patient is feeling well and ready to discharge. I spoke with surgery, previous provider, and Infectious Disease about the plan of care. There is no evidence of vertebral osteomyelitis on imaging or clinically. She was educated about the worrisome signs and symptoms come back to emergency room for and wa
[2021-02-14 14:00] VITALS: BP 143/59; PULSE 76; RESP 16; TEMP 36.4; O2SAT 98
[2021-02-14 14:31] VITALS: BP 138/56
[2021-02-14 14:34] LABS: EDCOVIDSCREEN Negative (Negative)
== END 2021-02-14 16:21 | DRG 854 ==
LOC: ANHED 02-03 01:46 → ANH3MEDSUR 02-03 07:57
PROVIDERS: Internal Medicine; Nurse Practitioner Adult Health; Surgery; Admitting Provider Internal Medicine; Emergency Provider Family Medicine; PCP Family Medicine Adolescent Medicine; Visit Provider Physician Assistant
PROC: 0W9N0ZZ Drainage of Female Perineum, Open Approach (ICD-10-PCS; CPT 46040; principal; 2021-02-03 08:30)
DX: A41.89 Other specified sepsis (principal); L05.02 Pilonidal sinus with abscess; N82.8 Other female genital tract fistulae; K91.89 Other postprocedural complications and disorders of digestive system; K56.7 Ileus, unspecified; E87.1 Hypo-osmolality and hyponatremia; R31.9 Hematuria, unspecified; K80.80 Other cholelithiasis without obstruction; Z20.822 Contact with and (suspected) exposure to COVID-19; I12.9 Hypertensive chronic kidney disease with stage 1 through stage 4 chronic kidney disease, or unspecified chronic kidney disease; E11.22 Type 2 diabetes mellitus with diabetic chronic kidney disease; N18.30 Chronic kidney disease, stage 3 unspecified; E78.00 Pure hypercholesterolemia, unspecified; E83.52 Hypercalcemia; Z96.641 Presence of right artificial hip joint; Z93.3 Colostomy status; Z85.048 Personal history of other malignant neoplasm of rectum, rectosigmoid junction, and anus
CPT/HCPCS: 36415; 36569; 71045; 74018; 74176; 80048; 80053; 80202; 81001; 82565; 82948; 83605; 83690; 83735; 84100; 85025; 85027; 86140; 87040; 87086; 87426; 96360; 97110; 97116; 97161; 97165; 99285; A9270; C1751; C9803; J0131; J0360; J0692; J1200; J1650; J2020; J2270; J2405; J2704; J2765; J3010; J3370; J3475; J7030; J7120

== ENCOUNTER 2022-12-24 15:31 | Emergency (ER) | payer MEDICARE, OTHER, SELFPAY ==
[2022-12-24 15:50] VITALS: BP 168/61; PULSE 80; RESP 16; TEMP 38.2; O2SAT 97
--- NOTE | 2022-12-24 16:43 | ED.GENADULT ---
HPI - General Adult General Chief complaint: Upper Respiratory Infection Stated complaint: fever,sore throat Source: patient Mode of arrival: ambulatory Limitations: no limitations History of Present Illness HPI narrative: PATIENT PRESENTS FOR EVALUATION OF SORE THROAT FOR THE LAST 2 DAYS. SHE INDICATES HURTS TO SWALLOW. NO FEVER, CHILLS, NAUSEA, VOMITING. SHE HAS AN OCCASIONAL COUGH WHICH SEEMS TO CAUSE WORSENING THROAT PAIN. NO RECENT SICK CONTACTS TO HER KNOWLEDGE. SHE DOES NOT SMOKE. SHE TRIED [id number] TYLENOL WITHOUT CONSIDERABLE IMPROVEMENT. Related Data Allergies Allergy/AdvReac Type Severity Reaction Status Date / Time diphenhydramine Allergy Severe swelling Verified 12/24/22 15:57 [From Benadryl Allergy] Sulfa (Sulfonamide Allergy Severe SWELLING, Verified 12/24/22 15:57 Antibiotics) THROAT, FACE vancomycin Allergy Intermediate Rash Verified 12/24/22 15:57 Review of Systems Review of Systems: CONSTITUTIONAL: DENIES FEVER, CHILLS, OR SWEATS. EYES: DENIES VISUAL CHANGES, REDNESS, OR DISCHARGE. ENT: REPORTS SORE THROAT. DENIES RHINORRHEA, CONGESTION, OR OTALGIA. CARDIOVASCULAR: DENIES CHEST PAIN, PALPITATIONS, OR EDEMA. RESPIRATORY: DENIES COUGH OR DYSPNEA. GASTROINTESTINAL: DENIES ABDOMINAL PAIN, NAUSEA, VOMITING, OR DIARRHEA. GENITOURINARY: DENIES DYSURIA OR HEMATURIA. SKIN: DENIES RASH OR ITCHING. MUSCULOSKELETAL: DENIES BACK PAIN, JOINT PAIN, OR MYALGIA. NEUROLOGIC: DENIES HEADACHE, NUMBNESS, DIZZINESS, OR WEAKNESS. PSYCHIATRIC: DENIES ANXIETY OR DEPRESSION. COUNT INCLUDES THE [facility] Past Medical History Medical History KRISTEN positive Asymptomatic proteinuria Cataracts, bilateral Colorectal cancer Encounter for medication management Generalized osteoarthritis of multiple sites Gout Hemorrhoids High cholesterol HTN (hypertension) Rectal cancer UTI (urinary tract infection) Vaginal fistula Surgical History Surgical History History of right hip replacement May 2019 Hx of cataract surgery lt eye 2008 Hx of section 1975 Hx of colostomy perineal resection with [id number] Hx of dilation and curettage 1980 Status post incision and drainage Perineal abscess on 02/03/21 Family History Family History Father , age 70 Heart disease Social History Social History Smoking status: Never smoker Second hand tobacco smoke exposure: No Alcohol intake: never Substance use: never Substance use type: does not use Lack of Transportation: No Lack of Food: Never True Current Housing: I Have Housing Concerned About Future Housing: No Difficulty Paying Gas/Electric Bills: No Difficulty Paying for Meds: No Currently Unemployed: No Education: High School Diploma/GED Difficulty w/ Childcare or Family Care: No Living arrangements: alone Occupation/Education: retired Gender identity (if verbalized by the patient): Female Spiritual care concerns: No Agree to blood products: Yes Exam Narrative: GENERAL: WELL-APPEARING, WELL-NOURISHED, AND IN NO ACUTE DISTRESS. HEAD: NORMOCEPHALIC, ATRAUMATIC. EYES: PERRLA AND EOMI. ENT: NARES CLEAR, NO RHINORRHEA OR EPISTAXIS. MUCOUS MEMBRANES MOIST. OROPHARYNX WITHOUT TONSILLAR HYPERTROPHY OR EXUDATE HOWEVER THERE IS POSTERIOR PHARYNGEAL ERYTHEMA. BIILATERAL TMS PEARLY VARGAS NONBULGING NECK: SUPPLE. NO ADENOPATHY OR MASSES. NO CAROTID BRUITS OR JVD CHEST: CLEAR TO AUSCULTATION. NO RESPIRATORY DISTRESS. NO WHEEZES RALES OR RHONCHI HEART: REGULAR RATE AND RHYTHM. NO MURMUR HEARD. NORMAL PERIPHERAL PULSES. ABDOMEN: SOFT, NONTENDER, NONDISTENDED, NORMAL ACTIVE BOWEL SOUNDS. EXTREMITIES: NORMAL RANGE OF MOTION. NO EDEMA. SKIN: WARM, DRY, NO RASH. NEURO: NO FOCAL DEFIC
== END 2022-12-24 16:48 | disposition home or self-care (01) ==
PROVIDERS: Emergency Provider Nurse Practitioner; PCP Family Medicine Adolescent Medicine
DX: J02.9 Acute pharyngitis, unspecified (principal); E78.00 Pure hypercholesterolemia, unspecified; I10 Essential (primary) hypertension; M10.9 Gout, unspecified; M15.9 Polyosteoarthritis, unspecified; Z85.038 Personal history of other malignant neoplasm of large intestine; Z85.048 Personal history of other malignant neoplasm of rectum, rectosigmoid junction, and anus; Z96.641 Presence of right artificial hip joint
CPT/HCPCS: 87081; 87880; 99213; G0463

== ENCOUNTER 2023-06-24 12:04 | Outpatient (RCR) | payer MEDICARE, OTHER, SELFPAY ==
[2023-06-23] MEDS: ERTAPENEM SODIUM 0.5 GM in SODIUM CHLORIDE 0.9% IV 50 ML IVPB (13:44)
--- NOTE | 2023-06-23 15:40 | PC.NURSE ---
Pt arrived to the hospital for antibiotic infusion. Pt had new IV ultrasound placed. Pt tolerated well. Pt was then hooked up to antibiotic. Pt was educated on infusion process. Pt verbalized understanding. Pt answered all identifiers. Pt denies any needs at this time. Pt offered snack and drink, pt refused. Pt was given call light and instructed on how to use it. Pt tolerated infusion well. Pt was disconnected, and IV was flushed. IV was wrapped with kerlex and pt was instructed to keep it dry. Pt was sent with remainder of the roll and instructed to keep wrapped to protect IV. Pt will return tomorrow to receive next infusion. Pt was monitored for any reactions or changes in status. Pt was wheeled down to main lobby once finished.
[2023-06-24] MEDS: ERTAPENEM SODIUM 0.5 GM in SODIUM CHLORIDE 0.9% IV 50 ML IVPB (12:54)
--- NOTE | 2023-06-24 14:35 | PC.NURSE ---
Pt returned today for secondary infusion. Pt was placed in 302. Pt IV patent. Pt infusion was started and pt tolerated well. Pt denies any pain or discomfort. Pt expresses no needs at this time. Pt was offered a snack and a drink. Pt refused. Pt was monitored for any changes in status. Pt was wheeled down once infusion was finished. IV was locked off and intact.
== END 2023-09-21 23:59 | disposition home or self-care (01) ==
LOC: ANHVASCINF 12:04
PROVIDERS: PCP Family Medicine Adolescent Medicine; Visit Provider Family Medicine Adolescent Medicine
DX: N39.0 Urinary tract infection, site not specified (principal)
CPT/HCPCS: J1335

== ENCOUNTER 2023-07-20 11:34 | Inpatient (IN) | payer MEDICARE, OTHER, SELFPAY ==
--- NOTE | ~2023-07-20 | CT_ITS ---
EXAMINATION: CT abdomen pelvis w con INDICATION: Lower abdominal pain, persistent urinary tract infection TECHNIQUE: Computed tomographic images of the abdomen and pelvis were obtained after the administrati on of 100 cc of Omnipaque 350 intravenous contrast. The dose-length product (DLP) was 399.42 mGy-cm. Automated exposure control and iterative reconstruction technique were employed. COMPARISON: 02/02/2021, 04/29/2013 FINDINGS: Minimal dependent atelectasis is present in the lung bases. The heart size is normal. There is a small sliding hiatal hernia. 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 The liver is diffusely low in attenuation when compared with the spleen, consistent with hepat ic steatosis. The spleen and adrenal glands are normal. There is a 2.2 x 0.9 cm cystic lesion in the head of the pancreas. There is a 10 mm cystic lesion in the uncinate process of the pancreas. Stones are present in the nondistended gallbladder. There is a 1.7 cm soft tissue density mass of the left k idney upper pole. There are changes of partial colectomy with a diverting colostomy in the left lower quadrant. A right total hip arthroplasty is noted. There is a calcified fibroid of the uterus. IMPRESSION: 1. No CT correlate for the patient's symptoms. 2. Cystic lesions in the head and uncinate process of the pancreas. The differential diagnosis includ es pseudocyst, intraductal papillary mucinous neoplasm (IPMN), mucinous cystic neoplasm (MCN), and th e less common serous cystadenoma and neuroendocrine tumor. Correlate for history of pancreatitis. Fol low-up pancreas protocol MRI or CT in six months is recommended. 3. Indeterminate mass of the left kidney upper pole which could reflect proteinaceous cyst or solid n eoplasm. Finding can be simultaneously evaluated at the time of imaging follow-up for the cystic panc reatic lesions. 4. Cholelithiasis without evidence of cholecystitis. Reviewed, dictated and finalized at location B. TRAINER IMPRESSION: 1. No CT correlate for the patient's symptoms. 2. Cystic lesions in the head and uncinate process of the pancreas. The differe ntial diagnosis includes pseudocyst, intraductal papillary mucinous neoplasm (I PMN), mucinous cystic neoplasm (MCN), and the less common serous cystadenoma an d neuroendocrine tumor. Correlate for history of pancreatitis. Follow-up pancre as protocol MRI or CT in six months is recommended. 3. Indeterminate mass of the left kidney upper pole which could reflect protein aceous cyst or solid neoplasm. Finding can be simultaneously evaluated at the t tomy of imaging follow-up for the cystic pancreatic lesions. 4. Cholelithiasis without evidence of cholecystitis.
[2023-07-20 11:45] VITALS: BP 158/68; PULSE 80; RESP 14; TEMP 36.6; O2SAT 97
--- NOTE | 2023-07-20 12:15 | ED.FEMALEGU ---
HPI - Female Genitourinary General Chief complaint: Urogenital-Female Stated complaint: UTI SINCE DEC 2022 Time Seen by Provider: 07/20/23 12:11 Source: patient Mode of arrival: ambulatory Limitations: no limitations History of Present Illness HPI Narrative: 78 years old white female presents with burning sensation, urine frequency, lower abdominal discomfort and a diagnosis of UTI since December 2022. Patient had numerous courses of antibiotic without improvement, last course of ertapenem for 7 days IV daily was remarkable improvement, last dose was June 26, 2023. Patient symptom started again few days ago, referred to the emergency room by her family physician for admission. Urine culture on June 16, 2023 came back positive for Klebsiella oxytoca which is sensitive to gentamicin, imipenem and meropenem Related Data Home Medications Medication Instructions Recorded Confirmed amlodipine 10 mg tablet 10 mg PO HS 07/20/23 07/20/23 phenazopyridine 95 mg tablet (Azo 95 mg PO TID PRN urinary 07/20/23 07/20/23 Urinary Pain Relief) Allergies Allergy/AdvReac Type Severity Reaction Status Date / Time diphenhydramine Allergy Severe swelling Verified 07/20/23 17:53 [From Benadryl Allergy] Sulfa (Sulfonamide Allergy Severe SWELLING, Verified 07/20/23 17:53 Antibiotics) THROAT, FACE vancomycin Allergy Intermediate Rash Verified 07/20/23 17:53 amoxicillin AdvReac Intermediate Diarrhea Verified 07/20/23 17:53 [facility] Past Medical History Medical History KRISTEN positive Asymptomatic proteinuria Cataracts, bilateral Encounter for medication management Generalized osteoarthritis of multiple sites Gout Hemorrhoids High cholesterol Rectal cancer (2007) UTI (urinary tract infection) Vaginal fistula Surgical History Surgical History History of right hip replacement May 2019 Hx of cataract surgery lt eye 2007 Hx of section 1974 Hx of colostomy perineal resection with [id number] Hx of dilation and curettage 1979 Status post incision and drainage Perineal abscess on 02/03/21 Family History Family History Father , age 70 Heart disease Social History Social History (Updated 05/31/23 @ 11:21 by Nichole Pfeiffer, [facility]) Smoking status: Never smoker Second hand tobacco smoke exposure: No Alcohol intake: never Substance use: never Substance use type: does not use Do You Feel Safe in your Home?: Yes Lack of Transportation: No Lack of Food: Never True Current Housing: I Have Housing Concerned About Future Housing: No Difficulty Paying Gas/Electric Bills: No Difficulty Paying for Meds: No Currently Unemployed: No Education: Master's Degree or Higher Difficulty w/ Childcare or Family Care: No Living arrangements: alone Occupation/Education: retired Gender identity (if verbalized by the patient): Female Spiritual care concerns: No Agree to blood products: Yes Course Vital Signs Vital signs: Vital Signs Temperature 36.6 C 07/20/23 11:45 Pulse Rate 80 07/20/23 11:45 Respiratory Rate 14 07/20/23 11:45 Blood Pressure 158/68 H 07/20/23 11:45 Pulse Oximetry 97 07/20/23 11:45 Temperature 36.6 C 07/20/23 11:45 Pulse Rate 76 07/20/23 16:58 Respiratory Rate 16 07/20/23 16:58 Blood Pressure 182/87 H 07/20/23 16:58 Pulse Oximetry 100 07/20/23 16:58 Oxygen Delivery Room Air 07/20/23 18:20 MDM - Female Genitourinary MDM Narrative Medical decision making narrative: differential diagnosis urinary tract infection failed outpatient treatment, urine culture May 2023 showed Klebsiella oxytoca, sensitive to gentamicin imipenem marrow pain. Labs showed no acute abnormalities, urine analysis positive for infection, CT abdomen and pelvis with IV
[2023-07-20 12:24] LABS: Appearance Urine Cloudy (Clear); Bacteria Urine 4+ /hpf; Bilirubin Urine Negative (Negative); Blood Urine 1+ (Negative); Color Urine Dark Yellow (Yellow); Glucose Urine UA Negative (Negative); Ketones Urine Negative (Negative); Leukocyte Esterase Ur 3+ LEU/UL (Negative); Nitrate Urine Positive (Negative); Non Pathogenic Casts 0-2; Protein Urine 1+ mg/dL (Negative); Specific Grav Ur 1.015 (1.001-1.035); Squamous Epithelial Cell Urine None seen /hpf (Few); WBC Urine >100 /hpf; pH Urine 5.5 (5.0-9.0)
[2023-07-20 12:25] LABS: Add Urine Microscopic? YES
[2023-07-20] MEDS: MEROPENEM 1 GM/NS 100 ML 1 GM/100 ML BAG IVPB ×2 (14:55→22:16)
[2023-07-20 14:56] LABS: Basophils Percent Auto 0.4 % (0.2-1.2); Eosinophils Absolute Auto 0.2 K/mm3 (0-0.3); Hematocrit 37.8 % (37.0-47.0); Hemoglobin 11.9 g/dL (12.0-15.0); Immature Granulocyte Absolute 0.04 K/mm3 (0.00-0.031); Immature Granulocyte Percent A 0.4 % (0-0.5); Lymphocytes Absolute Auto 1.08 K/mm3 (0.9-3.2); Lymphocytes Percent Auto 11.4 % (18.3-44.2); Mean Corpuscular HGB Conc 31.5 g/dl (32-36); Mean Corpuscular Hemoglobin 31.1 pg (26-34); Mean Corpuscular Volume 98.7 fl (80-100); Mean Platelet Volume 10.7 fl (7.4-10.4); Monocytes Absolute Auto 0.6 K/mm3 (0.1-0.6); Monocytes Percent Auto 6.4 % (2.6-8.5); Neutrophils Absolute Auto 7.5 K/mm3 (1.3-6.7); Neutrophils Percent Auto 79.4 % (45.5-73.1); Platelet Count Result 302 k/mm3 (150-375); Red Blood Count 3.83 M/mm3 (4.2-5.4); Red Cell Distribution Width 13.5 % (11.5-14.5); White Blood Count 9.5 K/mm3 (4.5-10.0)
[2023-07-20 15:13] LABS: Alanine Aminotransferase 33 U/L (6-35); Albumin Level 5.1 g/dL (3.5-5.1); Alkaline Phosphatase 92 U/L (38-126); Anion Gap 13 mmol/L (8-16); Aspartate Amino Transferase 33 U/L (14-36); Bilirubin,Total 0.6 mg/dL (0.2-1.3); Blood Urea Nitrogen 59 mg/dL (7-17); Calcium 11.2 mg/dL (8.4-10.2); Carbon Dioxide 19 mmol/L (22-30); Chloride 109 mmol/L (98-107); Estimated CRCL calculation 26 ml/min; Estimated Glomerular Filt Rate 34; Glucose 143 mg/dL (65-110); Potassium 4.1 mmol/L (3.4-5.0); Sodium 141 mmol/L (137-145)
[2023-07-20 16:58] VITALS: BP 182/87; PULSE 76; RESP 16; O2SAT 100
[2023-07-20 17:35] VITALS: BMI 30.2
--- NOTE | 2023-07-20 17:38 | ADMGEN ---
This patient, Yulisa De Paz, was admitted to 3 Med Surg Room 313-01. Patient/family oriented to hospital policies and general routines including ID bracelet, bed and alarms, visiting hours, pain management, procedures, bathroom and other care routines, personal items, smoking policy, room service/diet, and visiting hours. Information on how to activate the Rapid Response Team has been discussed. Patient/Family are encouraged to report perceived risks to care and to ask questions if they do not understand what they are told or what they should do.
--- NOTE | 2023-07-20 19:25 | PM.IMHP ---
H&P: HPI History of Present Illness Date/Time: 07/20/23 19:25 Chief Complaint: Dysuria Narrative: 78 y/o F presents here with dysuria and lower abdominal pain with PMH of DM, benign HTN with CKD, peripheral neuropathy, CKD, osteoarthritis, HLD, rectal cancer s/p colostomy, and recurrent UTIs. Patient began having dysuria on December of 2022. While patient had COVID, nausea, and dehydration and ended up with a UTI. Later treated with Cipro at the end of Feb. Nitrofurantoin in Mar. Placed on Cipro x7 days on 05/12/24. End of April was given 1 time dose of Fosfomycin 3G. Return to the office on 05/29/2023 for continued dysuria without frequency or urgency. Wylie she was having incomplete bladder emptying. Last UA on 05/23 was consistent with a UTI and micro showed klebsiella oxytoca. additional urine culture obtained on 06/14/2023 which again grew klebsiella oxytoca which was susceptible to meropenem, gentamicin, and imipenem. placed on ertapenem x7 days IV with last dose on 06/26/2023. Patient's symptoms returned on 07/19/23. Referred to ED for evaluation and IV atb given history of resistant UTIs. +Chills with onset yesterday. No fever, body aches, nausea, vomiting, or diarrhea. Some suprapubic pain and pain to vaginal region with start of stream but continues to hurt during stream. Initial VS at presentation: 97.9? F, HR 80, RR 14, 158/68, 97% on RA. ED workup showed no leukocytosis, creatinine 1.5 (previously 2.6 on 05/24/2023), glucose 143, calcium 11.2, and UA consistent with UTI. CT of the abdomen performed showing abnormal findings of the pancreas, and indeterminate mass in the left kidney upper pole, and cholelithiasis without evidence of cholecystitis. Review of Systems Review of Systems: All systems reviewed & are unremarkable except as noted in HPI and below PMFSH Past Medical History Medical History KRISTEN positive Asymptomatic proteinuria Cataracts, bilateral Encounter for medication management Generalized osteoarthritis of multiple sites Gout Hemorrhoids High cholesterol Rectal cancer (2007) UTI (urinary tract infection) Vaginal fistula Surgical History Surgical History History of right hip replacement May 2019 Hx of cataract surgery lt eye 2008 Hx of section 1974 Hx of colostomy perineal resection with [id number] Hx of dilation and curettage 1980 Status post incision and drainage Perineal abscess on 02/03/21 Family History Family History Father , age 70 Heart disease Social History Social History (Updated 05/31/23 @ 11:21 by Nichole Pfeiffer CMA) Smoking status: Never smoker Second hand tobacco smoke exposure: No Alcohol intake: never Substance use: never Substance use type: does not use Do You Feel Safe in your Home?: Yes Lack of Transportation: No Lack of Food: Never True Current Housing: I Have Housing Concerned About Future Housing: No Difficulty Paying Gas/Electric Bills: No Difficulty Paying for Meds: No Currently Unemployed: No Education: Master's Degree or Higher Difficulty w/ Childcare or Family Care: No Living arrangements: alone Occupation/Education: retired Gender identity (if verbalized by the patient): Female Spiritual care concerns: No Agree to blood products: Yes Meds Home Medications and Allergies Home Medications Medication Instructions Recorded Confirmed Type magnesium oxide 400 mg PO DAILY #30 caps 02/14/21 07/20/23 Rx allopurinol 300 mg tablet 300 mg PO DAILY #90 tabs 01/01/23 07/20/23 Rx ezetimibe 10 mg tablet 10 mg PO DAILY #90 tabs 01/01/23 07/20/23 Rx fenofibrate 160 mg tablet 160 mg PO DAILY #90 tabs 01/01/23 07/20/23 Rx gabapentin 300 mg capsule 300 mg PO QHS #90 caps 01/01/23 07/20/23 Rx losartan 100 mg tablet 100 mg
[2023-07-20 20:00] VITALS: PULSE 76; RESP 16; O2SAT 100
[2023-07-20 22:00] VITALS: BP 155/61; PULSE 76; RESP 16; TEMP 36.5; O2SAT 100
[2023-07-20 22:15] VITALS: PULSE 76
[2023-07-20] MEDS: GABAPENTIN 300 MG CAPSULE PO (22:15)
[2023-07-20] MEDS: METOPROLOL TARTRATE 25 MG TABLET PO (22:15)
[2023-07-20] MEDS: amLODIPine BESYLATE 5 MG TABLET 10 MG PO (22:16)
[2023-07-20] MEDS: PHENAZOPYRIDINE HCL 100 MG TABLET PO (22:26)
[2023-07-21] MEDS: MEROPENEM 1 GM/NS 100 ML 1 GM/100 ML BAG IVPB ×3 (05:36→21:39)
[2023-07-21 05:44] VITALS: BP 153/56; PULSE 55; RESP 16; TEMP 36; O2SAT 97
[2023-07-21 06:14] LABS: Basophils Percent Auto 0.5 % (0.2-1.2); Eosinophils Absolute Auto 0.3 K/mm3 (0-0.3); Immature Granulocyte Absolute 0.02 K/mm3 (0.00-0.031); Immature Granulocyte Percent A 0.2 % (0-0.5); Lymphocytes Absolute Auto 1.25 K/mm3 (0.9-3.2); Lymphocytes Percent Auto 15.5 % (18.3-44.2); Mean Corpuscular HGB Conc 31.3 g/dl (32-36); Mean Corpuscular Volume 99.1 fl (80-100); Mean Platelet Volume 10.5 fl (7.4-10.4); Monocytes Absolute Auto 0.7 K/mm3 (0.1-0.6); Monocytes Percent Auto 8.3 % (2.6-8.5); Neutrophils Absolute Auto 5.8 K/mm3 (1.3-6.7); Neutrophils Percent Auto 71.5 % (45.5-73.1); Platelet Count Result 267 k/mm3 (150-375); Red Blood Count 3.23 M/mm3 (4.2-5.4); Red Cell Distribution Width 13.4 % (11.5-14.5); White Blood Count 8.1 K/mm3 (4.5-10.0)
[2023-07-21 06:25] LABS: Alanine Aminotransferase 24 U/L (6-35); Alkaline Phosphatase 71 U/L (38-126); Anion Gap 6 mmol/L (8-16); Aspartate Amino Transferase 25 U/L (14-36); Bilirubin,Total 0.6 mg/dL (0.2-1.3); Blood Urea Nitrogen 52 mg/dL (7-17); Calcium 10.2 mg/dL (8.4-10.2); Carbon Dioxide 21 mmol/L (22-30); Chloride 109 mmol/L (98-107); Estimated CRCL calculation 24 ml/min; Estimated Glomerular Filt Rate 31; Glucose 134 mg/dL (65-110); Potassium 3.8 mmol/L (3.4-5.0); Sodium 136 mmol/L (137-145)
[2023-07-21 06:41] LABS: Hemoglobin A1C 6.7 % (<5.7)
[2023-07-21] MEDS: METOPROLOL TARTRATE 25 MG TABLET PO ×2 (07:36→21:39)
[2023-07-21] MEDS: MAGNESIUM OXIDE 400 MG TABLET PO (07:36)
[2023-07-21] MEDS: EZETIMIBE 10 MG TABLET PO (07:37)
[2023-07-21] MEDS: allopurinoL 300 MG TABLET PO (07:37)
[2023-07-21] MEDS: LOSARTAN POTASSIUM 100 MG TABLET PO (07:37)
--- NOTE | 2023-07-21 08:51 | PM.IMPN ---
Progress Note: A&P Assessment and Plan (1) Chronic UTI: Code(s): N39.0 - Urinary tract infection, site not specified Status: Acute Assessment and Plan: - UA: cloudy, 1+ protein, 1+ blood, positive nitrates, 3+ leuks, 3-5 rbc's, greater than 100 wbc's, no epithelial cells, 4+ bacteria, 0-2 casts. - urine culture pending - CT abd/pelvis w/con 1. No CT correlate for the patient's symptoms. 2. Cystic lesions in the head and uncinate process of the pancreas. The differential diagnosis includes pseudocyst, intraductal papillary mucinous neoplasm (IPMN), mucinous cystic neoplasm (MCN), and the less common serous cystadenoma and neuroendocrine tumor. Correlate for history of pancreatitis. Follow-up pancreas protocol MRI or CT in six months is recommended. 3. Indeterminate mass of the left kidney upper pole which could reflect proteinaceous cyst or solid neoplasm. Finding can be simultaneously evaluated at the time of imaging follow-up for the cystic pancreatic lesions. 4. Cholelithiasis without evidence of cholecystitis. 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 started on clobetasol x3 months, continue. - feels she has incomplete bladder emptying, will obtain post void residual. Consider bethanechol or flomax if post-void residual is present. - trend basic labs 07/21 - Patient described symptoms and great urgency, frequency and some cramping. - Urine cultures are pending - Continue IV Abx meropenem 1G IVPB Q8H - Post void residuals completed- resulted at 0, per nursing - Labs: WBC 8.1, Hgb 10, Sodium 136, Potassium 3.8, BUN 52, Creatinine 1.60, Glucose 134, HgbA1C 6.7, total protein 7.0 (2) Diabetes mellitus with chronic kidney disease: Code(s): E11.22 - Type 2 diabetes mellitus with diabetic chronic kidney disease Status: Acute Assessment and Plan: - initial glucose: 143 - hypoglycemia protocol - POC blood glucose ACHS - home medication resumed/held - no current home medications - correct regimen ordered - low dose TIDWM and HS - A1C 6.8% on 01/02/2023, update 07/21 - AM glucose 134 - HgbA1C 6.7 - Continue regimen ordered - low dose TIDWM and HS (3) Chronic kidney disease, stage IV (severe): Code(s): N18.4 - Chronic kidney disease, stage 4 (severe) Status: Acute Assessment and Plan: - creatinine: 1.5, previously 2.6 on 05/24/2023 - GFR: 34, previously 18 on 05/24/2023 - follows with Nephrology, last saw Finn WILSON on 05/31/23 - monitor renal function 07/21 - Labs today WBC 8.1, Hgb 10, Sodium 136, Potassium 3.8, BUN 52, Creatinine 1.60, GFR 31, Glucose 134, HgbA1C 6.7, total protein 7.0 (4) Abnormal finding on CT scan: Code(s): R93.89 - Abnormal findings on diagnostic imaging of other specified body structures Status: Acute Assessment and Plan: - CT of the abd/pelvis: 1. No CT correlate for the patient's symptoms. 2. Cystic lesions in the head and uncinate process of the pancreas. The differential diagnosis includes pseudocyst, intraductal papillary mucinous neoplasm (IPMN), mucinous cystic neoplasm (MCN), and the less common serous cystadenoma and neuroendocrine tumor. Correlate for history of pancreatitis. Follow-up pancreas protocol MRI or CT in six months is recommended. 3. Indeterminate mass of the left kidney upper pole which could reflect proteinaceous cyst or solid neoplasm. Finding can be simultaneously evaluated at the time of imaging follow-up for the cystic pancreatic lesions. 4. Cholelithiasis without evidence of cholecystitis. - LFTs WNL - no hx of pancreatitis - refer back to PCP for coordination of imaging Plan Patient here for antibiotic treatment of a drug-resistant UTI, started on 1 time dos
[2023-07-21] MEDS: TRIAMTERENE 37.5 MG/HCTZ 25 MG (MAXZIDE) TABLET 2 TAB PO (09:52)
[2023-07-21] MEDS: PHENAZOPYRIDINE HCL 100 MG TABLET PO ×2 (09:55→21:45)
[2023-07-21 14:00] VITALS: BP 153/50; PULSE 64; RESP 20; TEMP 36.2; O2SAT 94
[2023-07-21 15:12] VITALS: O2SAT 94
--- NOTE | 2023-07-21 18:42 | WPDURCON ---
Assessment and Plan Assessment and plan (1) Kidney mass: Code(s): N28.89 - Other specified disorders of kidney and ureter Status: Acute Assessment and Plan: plan to assess with MRI (2) Urinary tract infection: Code(s): N39.0 - Urinary tract infection, site not specified Status: Acute Assessment and Plan: we discussed potential etiologies of R UTI, ie voiding dysfunction, immunosuppression, CV fistula, incomplete bladder emptying, GSM and postmenopausal changes etc, we discussed further workup as outpatient with cystoscopy and possible urodynamic studies. advise cranberry 500 mg PO BID, theraworks wipes for urinary health, consider topical vaginal estradiol replace estrace, ( her recurrent UTI's are resistant to most oral abx so a course of suppressive abx will likely be unsuccessful) recommend increasing fluid intake to > 1.5 liters daily (3) Urge incontinence: Code(s): N39.41 - Urge incontinence Status: Acute Assessment and Plan: recommend further evaluation once UTI has cleared with urodynamic studies. Recommend she followup with Dr Elaine . Urology Consult Note HPI Date Seen: 07/21/23 Requesting Physician: Leonardo Heredia MD Primary Care Provider: Jasson Gordon MD Consult Narrative Narrative: Yulisa De Paz is a 78 year old female with multiple medical problems ( DM, colon Ca, HTN) admitted for recurrent UTI. Patient states she has been suffering from UTIS since december when she had covid. She has nocturia 2x. She has urge incontinence and LUCI. She leaks 6- 7 thick pads daily. She denies diarrhea or constipation, went trhu menopause in the early . Denies hx of frequent UTI as child. symptoms of UTI include urgecny frequency and SP pain with severe dysuria. recurrent culture with Klebsiella oxytoca resistant to nearly all abx, currently of carbapenem. Denies fecaluira or pneumaturia. feels better currently on IV abx. Denies GH. HAt CD which shows indeterminate renal mass and pancreas lesions. Review of Systems Constitutional: Constitutional: Reports as per HPI Eyes: Eyes: Reports as per HPI and Reports no additional eye complaints ENT: Reports system reviewed and no additional complaints, except as documented Cardiovascular: Cardiovascular: Reports no additional cardiovascular complaints Respiratory: Respiratory: Reports no additional respiratory complaints Gastrointestinal: Gastrointestinal: Reports as per HPI and Reports no additional gastrointestinal complaints Genitourinary: Genitourinary: Reports no additional female genitourinary complaints Musculoskeletal: Musculoskeletal: Reports no additional musculoskeletal complaints Integumentary/Breasts: Skin/Breast: Reports system reviewed and no additional complaints, except as docu Neurologic: Reports system reviewed and no additional complaints, except as documented and Reports as per HPI Psychiatric: Psychiatric: Reports no additional psychiatric complaints PMFSH Past Medical History Medical History KRISTEN positive Asymptomatic proteinuria Cataracts, bilateral Encounter for medication management Generalized osteoarthritis of multiple sites Gout Hemorrhoids High cholesterol Rectal cancer (2007) UTI (urinary tract infection) Vaginal fistula Surgical History Surgical History History of right hip replacement May 2019 Hx of cataract surgery lt eye 2007 Hx of section 1974 Hx of colostomy perineal resection with [id number] Hx of dilation and curettage 1979 Status post incision and drainage Perineal abscess on 02/03/21 Family History Family History Father , age 70 Heart disease Social History Social History (Updated 05/31/23 @ 11:21 by Nichole Pfeiffer, MEENA) Smo
[2023-07-21 21:16] VITALS: BP 167/59; PULSE 71; RESP 20; TEMP 36.7; O2SAT 96
[2023-07-21] MEDS: amLODIPine BESYLATE 5 MG TABLET 10 MG PO (21:38)
[2023-07-21 21:39] VITALS: PULSE 62
[2023-07-21] MEDS: GABAPENTIN 300 MG CAPSULE PO (21:39)
[2023-07-21] MEDS: CLOBETASOL PROPIONATE 0.05% CREAM 15 GM 1 APPLIC TOPICAL (21:39)
[2023-07-22] VITALS (7 sets, daily range): BP systolic 133–193; BP diastolic 52–62; PULSE 57–72; RESP 16–18; TEMP 36.6–36.8; O2SAT 96–99
[2023-07-22] MEDS: MEROPENEM 1 GM/NS 100 ML 1 GM/100 ML BAG IVPB ×3 (04:57→21:45)
[2023-07-22 06:39] LABS: Hematocrit 32.8 % (37.0-47.0); Hemoglobin 10.2 g/dL (12.0-15.0); Mean Corpuscular HGB Conc 31.1 g/dl (32-36); Mean Corpuscular Hemoglobin 30.7 pg (26-34); Mean Corpuscular Volume 98.8 fl (80-100); Mean Platelet Volume 10.3 fl (7.4-10.4); Platelet Count Result 251 k/mm3 (150-375); Red Blood Count 3.32 M/mm3 (4.2-5.4); Red Cell Distribution Width 13.3 % (11.5-14.5); White Blood Count 5.7 K/mm3 (4.5-10.0)
[2023-07-22 06:55] LABS: Alanine Aminotransferase 21 U/L (6-35); Albumin Level 3.9 g/dL (3.5-5.1); Alkaline Phosphatase 68 U/L (38-126); Anion Gap 9 mmol/L (8-16); Aspartate Amino Transferase 23 U/L (14-36); Bilirubin,Total 0.4 mg/dL (0.2-1.3); Blood Urea Nitrogen 48 mg/dL (7-17); Carbon Dioxide 21 mmol/L (22-30); Chloride 107 mmol/L (98-107); Estimated CRCL calculation 22 ml/min; Estimated Glomerular Filt Rate 27; Glucose 126 mg/dL (65-110); Potassium 3.7 mmol/L (3.4-5.0); Sodium 137 mmol/L (137-145)
[2023-07-22 08:18] LABS: Glucose Point of Care 112 mg/dl (65-105)
--- NOTE | 2023-07-22 08:22 | PM.IMPN ---
Progress Note: A&P Assessment and Plan (1) Chronic UTI: Code(s): N39.0 - Urinary tract infection, site not specified Status: Acute Assessment and Plan: - UA: cloudy, 1+ protein, 1+ blood, positive nitrates, 3+ leuks, 3-5 rbc's, greater than 100 wbc's, no epithelial cells, 4+ bacteria, 0-2 casts. - urine culture pending - CT abd/pelvis w/con 1. No CT correlate for the patient's symptoms. 2. Cystic lesions in the head and uncinate process of the pancreas. The differential diagnosis includes pseudocyst, intraductal papillary mucinous neoplasm (IPMN), mucinous cystic neoplasm (MCN), and the less common serous cystadenoma and neuroendocrine tumor. Correlate for history of pancreatitis. Follow-up pancreas protocol MRI or CT in six months is recommended. 3. Indeterminate mass of the left kidney upper pole which could reflect proteinaceous cyst or solid neoplasm. Finding can be simultaneously evaluated at the time of imaging follow-up for the cystic pancreatic lesions. 4. Cholelithiasis without evidence of cholecystitis. 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 started on clobetasol x3 months, continue. - feels she has incomplete bladder emptying, will obtain post void residual. Consider bethanechol or flomax if post-void residual is present. - trend basic labs 07/21 - Patient described symptoms and great urgency, frequency and some cramping. - Urine cultures are pending - Continue IV Abx meropenem 1G IVPB Q8H - Post void residuals completed- resulted at 0, per nursing - Labs: WBC 8.1, Hgb 10, Sodium 136, Potassium 3.8, BUN 52, Creatinine 1.60, Glucose 134, HgbA1C 6.7, total protein 7.0 07/22 - Patient expressed that symptom are no longer present at time of assessment. No urgency or cramping - Urine cultures resulted and note Citrobacter freundii - ?Citrobacter freundii sensitive to meropenum. Continue current IV abx - Labs: WBC 5.7, Hgb 10.2, Sodium 137, Potassium 3.7, BUN 48, Creatinine 1.80, Glucose 126, total protein 7.0 - Patient would like to have IV abx outpatient if possible - Urology agreeable to outpt IV abx - Care coordination services made aware of patient request. Infusion center vs home infusion - Will discuss frequency and duration with ID on tomorrow (2) Diabetes mellitus with chronic kidney disease: Code(s): E11.22 - Type 2 diabetes mellitus with diabetic chronic kidney disease Status: Acute Assessment and Plan: - initial glucose: 143 - hypoglycemia protocol - POC blood glucose ACHS - home medication resumed/held - no current home medications - correct regimen ordered - low dose TIDWM and HS - A1C 6.8% on 01/02/2023, update 07/21 - AM glucose 134 - HgbA1C 6.7 - Continue regimen ordered - low dose TIDWM and HS 07/22 -AM glucose 126 - Continue current management and monitoring (3) Chronic kidney disease, stage IV (severe): Code(s): N18.4 - Chronic kidney disease, stage 4 (severe) Status: Acute Assessment and Plan: - creatinine: 1.5, previously 2.6 on 05/24/2023 - GFR: 34, previously 18 on 05/24/2023 - follows with Nephrology, last saw Finn WILSON on 05/31/23 - monitor renal function 07/21 - Labs today WBC 8.1, Hgb 10, Sodium 136, Potassium 3.8, BUN 52, Creatinine 1.60, GFR 31, Glucose 134, HgbA1C 6.7, total protein 7.0 07/22 - Labs today: WBC 5.7, Hgb 10.2, Sodium 137, Potassium 3.7, BUN 48, Creatinine 1.80, Glucose 126, total protein 7.0 (4) Abnormal finding on CT scan: Code(s): R93.89 - Abnormal findings on diagnostic imaging of other specified body structures Status: Acute Assessment and Plan: - CT of the abd/pelvis: 1. No CT correlate for the patient's symptoms. 2. Cystic lesions in the head and un
[2023-07-22] MEDS: MAGNESIUM OXIDE 400 MG TABLET PO (08:39)
[2023-07-22] MEDS: EZETIMIBE 10 MG TABLET PO (08:39)
[2023-07-22] MEDS: LOSARTAN POTASSIUM 100 MG TABLET PO (08:39)
[2023-07-22] MEDS: METOPROLOL TARTRATE 25 MG TABLET PO ×2 (08:39→21:44)
[2023-07-22] MEDS: allopurinoL 300 MG TABLET PO (08:39)
[2023-07-22] MEDS: TRIAMTERENE 37.5 MG/HCTZ 25 MG (MAXZIDE) TABLET 2 TAB PO (08:40)
--- NOTE | 2023-07-22 09:36 | WPDUROPN2 ---
Progress Note: A&P Assessment and Plan (1) Urge incontinence: Code(s): N39.41 - Urge incontinence Status: Acute (2) Kidney mass: Code(s): N28.89 - Other specified disorders of kidney and ureter Status: Acute Assessment and Plan: outpt MRI (3) Urinary tract infection: Code(s): N39.0 - Urinary tract infection, site not specified Status: Acute Assessment and Plan: continue abx. culture sensitivity pending. outpt workup Subjective Subjective Date/Time Seen: 07/22/23 09:36 Interval history: feeling better. dysuria improved. No n/v. Review of Systems Constitutional: Constitutional: Reports as per HPI Eyes: Eyes: Reports as per HPI and Reports no additional eye complaints ENT: Reports system reviewed and no additional complaints, except as documented Cardiovascular: Cardiovascular: Reports no additional cardiovascular complaints Respiratory: Respiratory: Reports no additional respiratory complaints Gastrointestinal: Gastrointestinal: Reports as per HPI and Reports no additional gastrointestinal complaints Genitourinary: Genitourinary: Reports no additional female genitourinary complaints Musculoskeletal: Musculoskeletal: Reports no additional musculoskeletal complaints Integumentary/Breasts: Skin/Breast: Reports system reviewed and no additional complaints, except as docu Neurologic: Reports system reviewed and no additional complaints, except as documented and Reports as per HPI Psychiatric: Psychiatric: Reports no additional psychiatric complaints Exam Const: General: comfortable and no acute distress HENMT: Face/Nose/Sinus: Normal nares present Mouth: Yes moist mucous membranes abnormal Eyes: General: appearance normal, both eyes and all related structures EOM: EOMs intact bilaterally Neck: Neck: supple Lymphatic: lymphadenopathy Resp: Effort & Inspection: normal respiratory effort Cardio: Rhythm: regular rhythm GI: Inspection: non-distended GI Palp: Yes Soft to palpation, No Firmness to palpation present (GI) and No Tenderness to palpation present (GI) Skin: General skin exam: normal color and no rashes or lesions noted Extrem: General: normal to inspection Psych: Speech and movement: Normal speech and movement present Affect: normal affect Objective Data Vital Signs Vital Signs: Vital Signs - 24 hr 07/21/23 14:00 07/21/23 15:12 07/21/23 21:16 Temperature 36.2 C L 36.7 C Pulse Rate 64 71 Respiratory Rate 20 20 Blood Pressure 153/50 H 167/59 H Pulse Oximetry 94 94 96 Oxygen Delivery Room Air 07/21/23 21:39 07/21/23 20:00 07/22/23 06:00 Temperature 36.8 C Pulse Rate 62 57 L Respiratory Rate 18 Blood Pressure 139/52 L Pulse Oximetry 96 Oxygen Delivery Room Air 07/22/23 08:38 07/22/23 08:39 Temperature Pulse Rate 65 65 Respiratory Rate Blood Pressure 193/57 H Pulse Oximetry 99 Oxygen Delivery Intake/Output Intake/Output: Intake & Output 07/19/23 07/20/23 07/21/23 07/22/23 23:59 23:59 23:59 23:59 Intake Total 788.75 2340 300 Output Total 1275 Balance 788.75 2340 -975 Meds/Results Medications: Active Medications Generic Name Dose Route Start Last Admin Trade Name Freq PRN Reason Stop Dose Admin Acetaminophen 650 mg 07/20/23 16:47 Acetaminophen 325 Mg Tablet PO Q4H PRN Mild Pain (1-3) or Fever Allopurinol 300 mg 07/21/23 09:00 07/22/23 08:39 Allopurinol 300 Mg Tablet PO 300 mg DAILY JOANN Administration Amlodipine Besylate 10 mg 07/20/23 21:00 07/21/23 21:38 Amlodipine Besylate 5 Mg Tablet PO 10 mg HS [facility] Administration Clobetasol Propionate 1 applic 07/20/23 21:00 07/21/23 21:39 Clobetasol Propionate 0.05% Cream 15 Gm TOPICAL 1 applic QHS [facility] Administration Ezetimibe 10 mg 07/21/23 09:00 07/22/23 08:39 Ezetimibe 10 Mg Tablet PO 10 mg DAILY JOANN Administration Fenofibrate 160 mg 07/21/23 09:0
[2023-07-22 12:23] LABS: Glucose Point of Care 116 mg/dl (65-105)
[2023-07-22 17:02] LABS: Glucose Point of Care 137 mg/dl (65-105)
[2023-07-22 20:41] LABS: Glucose Point of Care 183 mg/dl (65-105)
[2023-07-22] MEDS: amLODIPine BESYLATE 5 MG TABLET 10 MG PO (21:44)
[2023-07-22] MEDS: GABAPENTIN 300 MG CAPSULE PO (21:44)
[2023-07-22] MEDS: CLOBETASOL PROPIONATE 0.05% CREAM 15 GM 1 APPLIC TOPICAL (21:45)
[2023-07-23 05:18] VITALS: BP 130/54; PULSE 64; RESP 16; TEMP 36.4; O2SAT 97
[2023-07-23] MEDS: SODIUM CHLORIDE 0.9% IV 250 ML (05:32)
[2023-07-23] MEDS: MEROPENEM 1 GM/NS 100 ML 1 GM/100 ML BAG IVPB (05:32)
[2023-07-23 06:22] LABS: Hematocrit 32.5 % (37.0-47.0); Hemoglobin 10.2 g/dL (12.0-15.0); Mean Corpuscular HGB Conc 31.4 g/dl (32-36); Mean Corpuscular Volume 98.8 fl (80-100); Mean Platelet Volume 10.1 fl (7.4-10.4); Platelet Count Result 249 k/mm3 (150-375); Red Blood Count 3.29 M/mm3 (4.2-5.4); Red Cell Distribution Width 13.1 % (11.5-14.5); White Blood Count 5.3 K/mm3 (4.5-10.0)
[2023-07-23 06:36] LABS: Alanine Aminotransferase 23 U/L (6-35); Albumin Level 3.8 g/dL (3.5-5.1); Alkaline Phosphatase 65 U/L (38-126); Anion Gap 9 mmol/L (8-16); Aspartate Amino Transferase 31 U/L (14-36); Bilirubin,Total 0.4 mg/dL (0.2-1.3); Blood Urea Nitrogen 55 mg/dL (7-17); Calcium 9.9 mg/dL (8.4-10.2); Carbon Dioxide 22 mmol/L (22-30); Chloride 106 mmol/L (98-107); Estimated CRCL calculation 24 ml/min; Estimated Glomerular Filt Rate 31; Glucose 125 mg/dL (65-110); Potassium 3.8 mmol/L (3.4-5.0); Sodium 137 mmol/L (137-145)
[2023-07-23 07:44] LABS: Glucose Point of Care 114 mg/dl (65-105)
[2023-07-23 08:52] VITALS: O2SAT 98
[2023-07-23 08:57] VITALS: BP 182/62; PULSE 67; O2SAT 99
[2023-07-23] MEDS: MAGNESIUM OXIDE 400 MG TABLET PO (08:58)
[2023-07-23] MEDS: EZETIMIBE 10 MG TABLET PO (08:58)
[2023-07-23 08:59] VITALS: PULSE 67
[2023-07-23] MEDS: TRIAMTERENE 37.5 MG/HCTZ 25 MG (MAXZIDE) TABLET 2 TAB PO (08:59)
[2023-07-23] MEDS: allopurinoL 300 MG TABLET PO (08:59)
[2023-07-23] MEDS: LOSARTAN POTASSIUM 100 MG TABLET PO (08:59)
[2023-07-23] MEDS: METOPROLOL TARTRATE 25 MG TABLET PO (08:59)
--- NOTE | 2023-07-23 10:30 | PM.DS ---
DS: Admitting Diagnosis Discharge Date 07/23/23 Admitting Diagnosis UTI DS: Discharge Diagnosis Discharge Diagnosis (1) Chronic UTI: Code(s): N39.0 - Urinary tract infection, site not specified Status: Acute Assessment and Plan: - UA: cloudy, 1+ protein, 1+ blood, positive nitrates, 3+ leuks, 3-5 rbc's, greater than 100 wbc's, no epithelial cells, 4+ bacteria, 0-2 casts. - urine culture pending - CT abd/pelvis w/con 1. No CT correlate for the patient's symptoms. 2. Cystic lesions in the head and uncinate process of the pancreas. The differential diagnosis includes pseudocyst, intraductal papillary mucinous neoplasm (IPMN), mucinous cystic neoplasm (MCN), and the less common serous cystadenoma and neuroendocrine tumor. Correlate for history of pancreatitis. Follow-up pancreas protocol MRI or CT in six months is recommended. 3. Indeterminate mass of the left kidney upper pole which could reflect proteinaceous cyst or solid neoplasm. Finding can be simultaneously evaluated at the time of imaging follow-up for the cystic pancreatic lesions. 4. Cholelithiasis without evidence of cholecystitis. 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 started on clobetasol x3 months, continue. - feels she has incomplete bladder emptying, will obtain post void residual. Consider bethanechol or flomax if post-void residual is present. - trend basic labs 07/21 - Patient described symptoms and great urgency, frequency and some cramping. - Urine cultures are pending - Continue IV Abx meropenem 1G IVPB Q8H - Post void residuals completed- resulted at 0, per nursing - Labs: WBC 8.1, Hgb 10, Sodium 136, Potassium 3.8, BUN 52, Creatinine 1.60, Glucose 134, HgbA1C 6.7, total protein 7.0 07/22 - Patient expressed that symptom are no longer present at time of assessment. No urgency or cramping - Urine cultures resulted and note Citrobacter freundii - ?Citrobacter freundii sensitive to meropenum. Continue current IV abx - Labs: WBC 5.7, Hgb 10.2, Sodium 137, Potassium 3.7, BUN 48, Creatinine 1.80, Glucose 126, total protein 7.0 - Patient would like to have IV abx outpatient if possible - Urology agreeable to outpt IV abx - Care coordination services made aware of patient request. Infusion center vs home infusion - Will discuss frequency and duration with ID on tomorrow 07/23 - Patient is without symptoms today. - Urine cultures result Citrobacter freundii - IV abx DC'd and will start PO abx Levofloxacin 750mg q48 hours for 4 doses- Per ID consultation - Patient is agreeable to PO abx and discharge today. - Urology is agreeable to patient discharge and she will follow up with them in office. (2) Diabetes mellitus with chronic kidney disease: Code(s): E11.22 - Type 2 diabetes mellitus with diabetic chronic kidney disease Status: Acute Assessment and Plan: - initial glucose: 143 - hypoglycemia protocol - POC blood glucose ACHS - home medication resumed/held - no current home medications - correct regimen ordered - low dose TIDWM and HS - A1C 6.8% on 01/02/2023, update 07/21 - AM glucose 134 - HgbA1C 6.7 - Continue regimen ordered - low dose TIDWM and HS 07/22 -AM glucose 126 - Continue current management and monitoring 07/23 - AM glucose 125 - Continue home medications (3) Chronic kidney disease, stage IV (severe): Code(s): N18.4 - Chronic kidney disease, stage 4 (severe) Status: Acute Assessment and Plan: - creatinine: 1.5, previously 2.6 on 05/24/2023 - GFR: 34, previously 18 on 05/24/2023 - follows with Nephrology, last saw Finn WILSON on 05/31/23 - monitor renal function 07/21 - Labs today WBC 8.1, Hgb 10, Sodium 136, Potassium 3.8, BUN 52, Creatinine 1.60,
[2023-07-23 10:54] VITALS: BP 168/66; PULSE 61; O2SAT 98
[2023-07-23 11:08] LABS: Glucose Point of Care 204 mg/dl (65-105)
--- NOTE | 2023-07-23 12:26 | WPDUROPN2 ---
Progress Note: A&P Assessment and Plan (1) Urinary tract infection: Code(s): N39.0 - Urinary tract infection, site not specified Status: Acute Assessment and Plan: Urine culture with growth of citrobacter. She has been started on PO levaquin. Reports issues with recurrent UTIs. Possible etiologies and further workup discussed. Will arrange outpatient follow up for continued monitoring. She will benefit from outpatient cystoscopy. (2) Kidney mass: Code(s): N28.89 - Other specified disorders of kidney and ureter Status: Acute Assessment and Plan: CT of abd/pelvis with contrast shows indeterminate mass of left kidney upper pole. Will plan for outpatient MRI for further evalaution. (3) Urge incontinence: Code(s): N39.41 - Urge incontinence Status: Acute Assessment and Plan: Will manage as an outpatient Subjective Subjective Date/Time Seen: 07/23/23 12:26 Interval history: Yulisa is doing well today. She reports no concerns. She is voiding without difficulty. Denies dysuria, hematuria, suprapubic pain, or flank pain. Creatinine stable, consistent with baseline. WBC within normal limits. Urine culture with growth of citrobacter freundii. Review of Systems Review of Systems: All systems reviewed & are unremarkable except as noted in HPI and below Exam Narrative: General: Awake, alert, comfortable, no acute distress HEENT: Normocephalic, atraumatic, sclerae anicteric Respiratory: Normal respiratory effort, no accessory muscle use Abdomen: Nondistended, soft, nontender Skin: Normal coloration, warm and dry Neurologic: No focal neuro deficits noted Psychiatric: Appropriate mood and affect, judgment and insight intact Objective Data Vital Signs Vital Signs: Vital Signs - 24 hr 07/22/23 14:00 07/22/23 20:42 07/22/23 23:09 Temperature 97.9 F 98.2 F 97.9 F Pulse Rate 67 72 67 Respiratory Rate 16 18 16 Blood Pressure 154/56 H 164/60 H 169/60 H Pulse Oximetry 97 96 98 Oxygen Delivery 07/22/23 20:00 07/23/23 05:18 07/23/23 08:57 Temperature 97.5 F L Pulse Rate 64 67 Respiratory Rate 16 Blood Pressure 130/54 L 182/62 H Pulse Oximetry 97 99 Oxygen Delivery Room Air 07/23/23 08:59 07/23/23 08:52 07/23/23 08:58 Temperature Pulse Rate 67 Respiratory Rate Blood Pressure Pulse Oximetry 98 Oxygen Delivery Room Air Room Air 07/23/23 10:54 Temperature Pulse Rate 61 Respiratory Rate Blood Pressure 168/66 H Pulse Oximetry 98 Oxygen Delivery Intake/Output Intake/Output: Intake & Output 07/20/23 07/21/23 07/22/23 07/23/23 23:59 23:59 23:59 23:59 Intake Total 788.75 2340 1840 840 Output Total 2175 1000 Balance 788.75 2340 -571 -160 Meds/Results Medications: Active Medications Generic Name Dose Route Start Last Admin Trade Name Freq PRN Reason Stop Dose Admin Acetaminophen 650 mg 07/20/23 16:47 Acetaminophen 325 Mg Tablet PO Q4H PRN Mild Pain (1-3) or Fever Allopurinol 300 mg 07/21/23 09:00 07/23/23 08:59 Allopurinol 300 Mg Tablet PO 300 mg DAILY JOANN Administration Amlodipine Besylate 10 mg 07/20/23 21:00 07/22/23 21:44 Amlodipine Besylate 5 Mg Tablet PO 10 mg HS [facility] Administration Clobetasol Propionate 1 applic 07/20/23 21:00 07/22/23 21:45 Clobetasol Propionate 0.05% Cream 15 Gm TOPICAL 1 applic QHS [facility] Administration Ezetimibe 10 mg 07/21/23 09:00 07/23/23 08:58 Ezetimibe 10 Mg Tablet PO 10 mg DAILY JOANN Administration Fenofibrate 160 mg 07/21/23 09:00 Fenofibrate 160 Mg Tablet PO DAILY JOANN Gabapentin 300 mg 07/20/23 21:00 07/22/23 21:44 Gabapentin 300 Mg Capsule PO 300 mg QHS JOANN Administration Losartan Potassium 100 mg 07/21/23 09:00 07/23/23 08:59 Losartan Potassium 100 Mg Tablet PO 100 mg DAILY JOANN Administration Magnesium Oxide 400 mg 07/21/23 09:00 07/23/23 08:58
== END 2023-07-23 12:50 | disposition home or self-care (01) | DRG 690 ==
LOC: ANHED 14:03 → ANH3MEDSUR 17:24
PROVIDERS: Emergency Medicine; Student in an Organized Health Care Education/Training Program; Admitting Provider Hospitalist; Emergency Provider Emergency Medicine; PCP Family Medicine Adolescent Medicine; Visit Provider Nurse Practitioner Family
DX: N39.0 Urinary tract infection, site not specified (principal); N18.4 Chronic kidney disease, stage 4 (severe); I12.9 Hypertensive chronic kidney disease with stage 1 through stage 4 chronic kidney disease, or unspecified chronic kidney disease; E11.42 Type 2 diabetes mellitus with diabetic polyneuropathy; E11.22 Type 2 diabetes mellitus with diabetic chronic kidney disease; E78.00 Pure hypercholesterolemia, unspecified; N39.46 Mixed incontinence; N90.4 Leukoplakia of vulva; B96.89 Other specified bacterial agents as the cause of diseases classified elsewhere; N28.89 Other specified disorders of kidney and ureter; M10.9 Gout, unspecified; M15.9 Polyosteoarthritis, unspecified; Z96.641 Presence of right artificial hip joint; Z85.048 Personal history of other malignant neoplasm of rectum, rectosigmoid junction, and anus; Z93.3 Colostomy status
CPT/HCPCS: 36415; 74177; 80053; 81001; 82948; 83036; 85025; 85027; 87040; 87086; 87186; 96365; 96367; 99285; A9270; G0378; J1580; J2185; J7050; Q9967

== ENCOUNTER 2023-08-21 15:17 | Outpatient (CLI) | payer MEDICARE, OTHER, SELFPAY ==
--- NOTE | ~2023-08-21 | MR_ITS ---
EXAMINATION: MR abdomen wo/w con DATE: 08/21/2023 16:52 INDICATION: Left kidney mass. TECHNIQUE: Magnetic resonance imaging (MRI) of the abdomen was performed without and with 14 mL Multi Rafaela intravenous contrast. COMPARISON: CT abdomen and pelvis 07/1708/02/2023, 11/22/2020 FINDINGS: There is diffuse hepatic steatosis. There are gallstones in the gallbladder, which is normal in size. The spleen is normal. There are multiple cystic lesions in the pancreas measuring up to 19 mm. The l argest lesion is stable from 11/22/20. The pancreatic duct is normal in caliber. The adrenal glands ar e normal. There is a 19 mm hemorrhagic cyst in left kidney. There are cysts in the kidneys measuring up to 4 mm. There is an ostomy in left abdomen. There is a small sliding hiatal hernia. There are no pathologically enlarged lymph nodes. There is no free intraperitoneal fluid. IMPRESSION: 1. 19 mm hemorrhagic cyst in left kidney. 2. Low-risk cystic lesions in the pancreas measuring up to 19 mm. The differential diagnosis includes pseudocyst, intraductal papillary mucinous neoplasm (IPMN), mucinous cystic neoplasm (MCN), serous c ystadenoma, and neuroendocrine tumor. Consider abdomen MRI without and with contrast in one year. Reviewed, dictated and finalized at location A. IMPRESSION: 1. 19 mm hemorrhagic cyst in left kidney. 2. Low-risk cystic lesions in the pancreas measuring up to 19 mm. The different ial diagnosis includes pseudocyst, intraductal papillary mucinous neoplasm (IPM N), mucinous cystic neoplasm (MCN), serous cystadenoma, and neuroendocrine tumo r. Consider abdomen MRI without and with contrast in one year.
== END 2023-08-21 15:18 | disposition home or self-care (01) ==
LOC: ANHIMG 15:20
PROVIDERS: PCP Family Medicine Adolescent Medicine; Visit Provider Nurse Practitioner Family
DX: N28.89 Other specified disorders of kidney and ureter (principal)
CPT/HCPCS: 74183; A9577

== ENCOUNTER 2024-03-08 14:56 | Emergency (ER) | payer MEDICARE, OTHER, SELFPAY ==
[2024-03-08 15:12] VITALS: BP 166/69; PULSE 68; RESP 19; TEMP 37.4; O2SAT 97
[2024-03-08] MEDS: TETANUS/DIPHTHERIA TOXOIDS ADSORB 0.5 ML VIAL (*BKC) IM (15:22)
--- NOTE | 2024-03-08 15:26 | ED.WOUNDLAC ---
HPI - Wound/Laceration General Chief Complaint: Wound/Laceration Stated Complaint: Right Leg Laceration Time Seen by Provider: 03/08/24 15:10 Source: patient Mode of arrival: ambulatory Limitations: no limitations History of Present Illness HPI narrative: 78 yo F presents with abrasion to R lateral aspect R lower leg. Here for tetanus. Cut herself on metal yard post 3 days ago. States it never bled . hx of diabetes. all systems reviewed and negative except as noted above. Related Data Allergies Allergy/AdvReac Type Severity Reaction Status Date / Time diphenhydramine Allergy Severe swelling Verified 03/08/24 14:58 [From Benadryl Allergy] Sulfa (Sulfonamide Allergy Severe SWELLING, Verified 03/08/24 14:58 Antibiotics) THROAT, FACE vancomycin Allergy Intermediate Rash Verified 03/08/24 14:58 amoxicillin AdvReac Intermediate Diarrhea Verified 03/08/24 14:58 Review of Systems Review of Systems: CONSTITUTIONAL: Denies fever, chills, or sweats. EYES: Denies visual changes, redness, or discharge. ENT: Denies rhinorrhea, congestion, sore throat, or otalgia. CARDIOVASCULAR: Denies chest pain, palpitations, or edema. RESPIRATORY: Denies cough or dyspnea. GASTROINTESTINAL: Denies abdominal pain, nausea, vomiting, or diarrhea. GENITOURINARY: Denies dysuria or hematuria. SKIN: Reports abrasion to right lower extremity. MUSCULOSKELETAL: Denies back pain, joint pain, or myalgia. NEUROLOGIC: Denies headache, numbness, or weakness. PSYCHIATRIC: Denies anxiety or depression. All other systems reviewed are negative, except as documented in HPI. [facility] Past Medical History Medical History KRISTEN positive Asymptomatic proteinuria Cataracts, bilateral Encounter for medication management Generalized osteoarthritis of multiple sites Gout Hemorrhoids High cholesterol Rectal cancer (2007) UTI (urinary tract infection) Vaginal fistula Surgical History Surgical History History of right hip replacement May 2019 Hx of cataract surgery lt eye 2007 Hx of section 1975 Hx of colostomy perineal resection with [id number] Hx of dilation and curettage 1980 Status post incision and drainage Perineal abscess on 02/03/21 Family History Family History Father , age 70 Heart disease Social History Social History (Updated 05/31/23 @ 11:21 by Nichole Pfeiffer [facility]) Smoking status: Never smoker Second hand tobacco smoke exposure: No Alcohol intake: never Substance use: never Substance use type: does not use Do You Feel Safe in your Home?: Yes Lack of Transportation: No Lack of Food: Never True Current Housing: I Have Housing Concerned About Future Housing: No Difficulty Paying Gas/Electric Bills: No Difficulty Paying for Meds: No Currently Unemployed: No Education: Master's Degree or Higher Difficulty w/ Childcare or Family Care: No Living arrangements: alone Occupation/Education: retired Gender identity (if verbalized by the patient): Female Spiritual care concerns: No Agree to blood products: Yes Comments At time of signature, agree with nursing past medical, surgical, social and family history. There is no relevant family history pertinent to the presenting complaint. Exam Narrative: GENERAL: This is a well-nourished, well-developed patient, in no apparent distress. HEAD: normocephalic, atraumatic. EYES: PERRL. Sclera clear/white. Vision is grossly intact. EARS: External ears normal, auditory canals clear and without drainage, TMs normal without perforation. Hearing grossly intact. NOSE: External nose normal with no obvious nasal discharge, nares without redness, no rhinorrhea. THROAT: Mucous membranes moist, posterior pharynx clear. NECK: Neck supple, non-tender without lymphad
== END 2024-03-08 15:35 | disposition home or self-care (01) ==
PROVIDERS: Emergency Provider Nurse Practitioner Family; PCP Family Medicine Adolescent Medicine
DX: S80.811A Abrasion, right lower leg, initial encounter (principal); E11.9 Type 2 diabetes mellitus without complications; Z23 Encounter for immunization; W45.8XXA Other foreign body or object entering through skin, initial encounter
CPT/HCPCS: 90471; 90714; 99213; G0463

== ENCOUNTER 2025-03-05 15:59 | Outpatient (CLI) | payer MEDICARE, OTHER, SELFPAY ==
--- NOTE | ~2025-03-05 | MR_ITS ---
EXAMINATION: MR abdomen wo/w con DATE: 03/05/2025 16:58 INDICATION: Cyst of the pancreas TECHNIQUE: Magnetic resonance imaging (MRI) of the abdomen was performed without and with 14 mL Multihance intravenous contrast. Sequences included coronal T2- weighted SS-FSE, coronal and axial FS 2D-FIESTA, axial STIR FSE, axial T2- weighted SS-FSE, axial T2-weighted FS SS-FSE, axial diffusion-weighted SE, axial dual-echo T1-weighted FSPGR, and axial and coronal T1-weighted LAVA. Postcontrast axial T1-weighted LAVA images were obtained in a time course. Postcontrast coronal T1-weighted LAVA images were obtained. COMPARISON: 08/21/2023 FINDINGS: Heart size is normal. No pericardial or pleural effusion. Prominent diffuse hepatic steatosis. 5 mm T2 hyperintense nonenhancing cyst at the caudal right hepatic lobe. Multiple low signal intensity gallstones within the normal nondilated gallbladder. No intrahepatic biliary ductal dilation. The common bile duct is also normal in caliber measuring up to 5 mm, tapering the distal duct with no evident intraluminal filling defects to suggest choledocholithiasis. Spleen and bilateral adrenal glands are normal. 2.5 similar exophytic cyst at the upper pole of the left kidney. There are a few additional subcentimeter T2 hyperintense nonenhancing bilateral renal cysts. Again seen are multiple small cystic lesions throughout the head, body and tail of the pancreas currently largest at the pancreatic head measuring approximately 1.9 cm, several of which appear contiguous with the normal caliber main pancreatic duct. No evident associated enhancing soft tissue component. There are postoperative changes with multiple foci susceptibility artifact along the midline of the anterior abdominal wall. There is a left abdominal and colostomy. No dilated bowel to suggest obstruction. No pathologically enlarged abdominal or upper pelvic lymphadenopathy. Bone marrow signal is normal. IMPRESSION: 1. No significant change in multiple simple appearing cystic lesions scattered throughout the pancreas the largest continuing to measure up to 1.9 cm the head of the pancreas and several of which appear to demonstrate continuity with the main pancreatic duct. The differential diagnosis includes pseudocyst, intraductal papillary mucinous neoplasm (IPMN), mucinous cystic neoplasm (MCN), and the less common serous cystadenoma and neuroendocrine tumor. Correlate for history of pancreatitis. Recommend continued annual pre and postcontrast MRI follow-up. 2. Cholelithiasis. Reviewed, dictated and finalized at location A. IMPRESSION: 1. No significant change in multiple simple appearing cystic lesions scattered throughout the pancreas the largest continuing to measure up to 1.9 cm the head of the pancreas and several of which appear to demonstrate continuity with the main pancreatic duct. The differential diagnosis includes pseudocyst, intraduc larisa papillary mucinous neoplasm (IPMN), mucinous cystic neoplasm (MCN), and the less common serous cystadenoma and neuroendocrine tumor. Correlate for history of pancreatitis. Recommend continued annual pre and postcontrast MRI follow-up . 2. Cholelithiasis.
== END 2025-03-05 16:00 | disposition home or self-care (01) ==
PROVIDERS: PCP Nurse Practitioner Family; Visit Provider Nurse Practitioner Family
DX: K86.2 Cyst of pancreas (principal); K80.20 Calculus of gallbladder without cholecystitis without obstruction
CPT/HCPCS: 74183; A9577